=== PATIENT | male | born 1945 | race Caucasian/White ===

== ENCOUNTER 2018-01-01 15:01 | Inpatient (IN) | payer MEDICARE, BC ==
[~2018-01-01] VITALS: Ht 170.2 cm; Wt 102.9 kg
[2018-01-01 15:09] VITALS: BP 168/78; PULSE 67; RESP 20; TEMP 98.3; O2SAT 95
--- NOTE | 2018-01-01 15:13 | PD ---
HPI Chief Complaint: syncope Time Seen by Provider: 15:13 Travel History International Travel<30 days: No Contact w/Intl Traveler<30days: No Traveled to known affect area: No History of Present Illness HPI 72-year-old male with history of aortic valve placement 6 years ago presents emergency department for evaluation following a syncopal episode. Patient states he has had 5 of these since he had his valve replaced but hasn't made aware that the valve is failing. He reports this morning while playing dianboom ball he felt like he was going to pass out but he did not. And this afternoon in the kitchen he syncopized, hitting his face on the ground. 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 Patient states in route he also began having a mild substernal chest pain. He states he typically does not get chest pain. He had no nausea. No focal deficits or weakness. He states he did feel lightheaded. He reports moderate pain on his head where he sustained a laceration and large hematoma. He has no other symptoms to report. [facility] Past Medical History Chest Pain: Yes Social History Alcohol Use: No Tobacco Use: No Substance Use: No Allergies-Medications (Allergen,Severity, Reaction): Coded Allergies: No Known Allergies (Verified Allergy, Unknown, 01/01/18) Reported Meds & Prescriptions Reported Meds & Active Scripts Active Reported Furosemide 20 Mg Tab 20 Mg PO DAILY Sertraline (Sertraline HCl) 100 Mg Tab 100 Mg PO DAILY Valsartan 320 Mg Tab 320 Mg PO DAILY Rosuvastatin (Rosuvastatin Calcium) 20 Mg Tab 20 Mg PO DAILY Centrum (Multiple Vitamins W/ Minerals) 1 Chew 1 Tab CHEW DAILY Aspirin 81 Mg Chew 81 Mg CHEW DAILY Review of Systems Except as stated in HPI: all other systems reviewed are Neg Physical Exam Narrative GENERAL: Well-nourished, very pleasant male patient, sitting in bed in no acute distress. SKIN: Focused skin assessment warm/dry. 3 cm superficial laceration below the right eyebrow. Bleeding is controlled. Patient has another small subcentimeter laceration on the right side of the nasal bridge. Hematomas are forming above each superior eyelid. HEAD: Normocephalic. EYES: Pupils equal and round. No scleral icterus. No injection or drainage. EOMI. ENT: Mucosa pink and moist. No erythema or exudates. No uvular edema. No uvular , palatal, or tonsillar deviation. Airway patent. Nasal turbinates appear normal without nasal blood, purulent drainage or septal hematoma. NECK: Trachea midline. No JVD. Cervical collar is in place. CARDIOVASCULAR: Regular rate and rhythm. No murmur appreciated. RESPIRATORY: No accessory muscle use. Clear to auscultation. Breath sounds equal bilaterally. GASTROINTESTINAL: Abdomen soft, non-tender, nondistended. Hepatic and splenic margins not palpable. MUSCULOSKELETAL: No obvious deformities. No clubbing. No cyanosis. No edema. NEUROLOGICAL: Awake and alert. No obvious cranial nerve deficits. Motor grossly within normal limits. Normal speech. PSYCHIATRIC: Appropriate mood and affect; insight and judgment normal. Data Data Last Documented VS Vital Signs Date Time Temp Pulse Resp B/P (MAP) Pulse Ox O2 Delivery O2 Flow Rate FiO2 01/01/18 15:09 98.3 67 20 168/78 (108) 95 Orders Orders Electrocardiogram (01/01/18 15:11) Basic Metabolic Panel (Bmp) (01/01/18 15:11) Complete Blood Count With Diff (01/01/18 15:11) Magnesium (Mg) (01/01/18 15:11) Ckmb (Isoenzyme) Profile (01/01/18 15:11) Troponin I (01/01/18 15:11) Act Partial Throm Time (Ptt) (01/01/18 15:11) Prothrombin Time / Inr (Pt) (01/01/18 15:11) Urinalysis - C+S If Indicated (01/01/18 15:11) Chest, Single Ap (01/01/18 15:11) Ct Brain W/O Iv Contrast(Rout) (01/01/18 15:11) Ct Cerv Spine W/O Contrast (01/01/18 15:11) Ecg Monitoring (01/01/18 15:11) Iv Access Insert/Monitor (01/01/18 15:11) Oximetry (01/01/18 15:11) Ct Facial Bones W/O Iv Cont (01/01/18 ) CKMB (01/01/18 15:35) CKMB% (01/01/18 15:35) Morphine Inj (Morphine Inj) (01/01/18 16:45) Ondansetron Inj (Zofran Inj) (01/01/18 16:45) Admit Order (Ed Use Only) (01/01/18 17:25) Labs Laboratory Tests Test 01/01/18 15:35 01/01/18 17:15 White Blood Count 6.1 TH/MM3 Red Blood Count 5.02 MIL/MM3 Hemoglobin 14.4 GM/DL Hematocrit 42.1 % Mean Corpuscular Volume 83.9 FL Mean Corpuscular Hemoglobin 28.8 PG Mean Corpuscular Hemoglobin Concent 34.3 % Red Cell Distribution Width 14.3 % Platelet Count 148 TH/MM3 Mean Platelet Volume 9.0 FL Neutrophils (%) (Auto) 62.4 % Lymphocytes (%) (Auto) 27.7 % Monocytes (%) (Auto) 6.4 % Eosinophils (%) (Auto) 2.2 % Basophils (%) (Auto) 1.3 % Neutrophils # (Auto) 3.8 TH/MM3 Lymphocytes # (Auto) 1.7 TH/MM3 Monocytes # (Auto) 0.4 TH/MM3 Eosinophils # (Auto) 0.1 TH/MM3 Basophils # (Auto) 0.1 TH/MM3 CBC Comment DIFF FINAL Differential Comment Prothrombin Time 9.9 SEC Prothromb Time International Ratio 1.0 RATIO Activated Partial Thromboplast Time 20.4 SEC Blood Urea Nitrogen 13 MG/DL Creatinine 0.80 MG/DL Random Glucose 90 MG/DL Calcium Level 8.7 MG/DL Magnesium Level 2.1 MG/DL Sodium Level 142 MEQ/L Potassium Level 3.9 MEQ/L Chloride Level 111 MEQ/L Carbon Dioxide Level 24.1 MEQ/L Anion Gap 7 MEQ/L Estimat Glomerular Filtration Rate 94 ML/MIN Total Creatine Kinase 108 U/L Creatine Kinase MB 1.3 NG/ML Troponin I 0.05 NG/ML Urine Color LIGHT-YELLOW Urine Turbidity CLEAR Urine pH 5.5 Urine Specific Buhl 1.003 Urine Protein NEG mg/dL Urine Glucose (UA) NEG mg/dL Urine Ketones NEG mg/dL Urine Occult Blood NEG Urine Nitrite NEG Urine Bilirubin NEG Urine Urobilinogen LESS THAN 2.0 MG/DL Urine Leukocyte Esterase NEG Urine RBC LESS THAN 1 /hpf Microscopic Urinalysis Comment CULT NOT INDICATED MDM Medical Decision Making Medical Screen Exam Complete: Yes Emergency Medical Condition: Yes Medical Record Reviewed: Yes Differential Diagnosis Syncope versus ACS versus electrolyte abnormality versus seizure Narrative Course 72-year-old male presents to emergency department for evaluation following a syncopal episode. Patient had a near-syncope episode today and 2 additional syncopal episodes. Currently he is awake and alert 3. He has obvious trauma tohis face. He does not want any pain medication at this time. Laboratory Tests Test 01/01/18 15:35 01/01/18 17:15 White Blood Count 6.1 TH/MM3 Red Blood Count 5.02 MIL/MM3 Hemoglobin 14.4 GM/DL Hematocrit 42.1 % Mean Corpuscular Volume 83.9 FL Mean Corpuscular Hemoglobin 28.8 PG Mean Corpuscular Hemoglobin Concent 34.3 % Red Cell Distribution Width 14.3 % Platelet Count 148 TH/MM3 Mean Platelet Volume 9.0 FL Neutrophils (%) (Auto) 62.4 % Lymphocytes (%) (Auto) 27.7 % Monocytes (%) (Auto) 6.4 % Eosinophils (%) (Auto) 2.2 % Basophils (%) (Auto) 1.3 % Neutrophils # (Auto) 3.8 TH/MM3 Lymphocytes # (Auto) 1.7 TH/MM3 Monocytes # (Auto) 0.4 TH/MM3 Eosinophils # (Auto) 0.1 TH/MM3 Basophils # (Auto) 0.1 TH/MM3 CBC Comment DIFF FINAL Differential Comment Prothrombin Time 9.9 SEC Prothromb Time International Ratio 1.0 RATIO Activated Partial Thromboplast Time 20.4 SEC Blood Urea Nitrogen 13 MG/DL Creatinine 0.80 MG/DL Random Glucose 90 MG/DL Calcium Level 8.7 MG/DL Magnesium Level 2.1 MG/DL Sodium Level 142 MEQ/L Potassium Level 3.9 MEQ/L Chloride Level 111 MEQ/L Carbon Dioxide Level 24.1 MEQ/L Anion Gap 7 MEQ/L Estimat Glomerular Filtration Rate 94 ML/MIN Creatine Kinase MB 1.3 NG/ML Urine Color LIGHT-YELLOW Urine Turbidity CLEAR Urine pH 5.5 Urine Specific Buhl 1.003 Urine Protein NEG mg/dL Urine Glucose (UA) NEG mg/dL Urine Ketones NEG mg/dL Urine Occult Blood NEG Urine Nitrite NEG Urine Bilirubin NEG Urine Urobilinogen LESS THAN 2.0 MG/DL Urine Leukocyte Esterase NEG Urine RBC LESS THAN 1 /hpf Microscopic Urinalysis Comment CULT NOT INDICATED Last Impressions Head CT 01/01/18 1511 Signed Impressions: Service Date/Time: December 15:44 - CONCLUSION: 1. No acute skull fracture identified. No acute cranial abnormality identified. 2. Soft tissue swelling within the left scalp as above. Clifford Britton MD Chest X-Ray 01/01/181510 Signed Impressions: Service Date/Time: December 15:36 - CONCLUSION: 1. Cardiomegaly. No acute abnormality. Clifford Britton MD Cervical Spine CT 01/01/18 1511 Signed Impressions: Service Date/Time: December 15:44 - CONCLUSION: 1. Degenerative spondylosis throughout the cervical spine. No acute fracture identified. Individual levels are discussed in detail above. Clifford Britton MD Maxillofacial CT 01/01/18 0000 Signed Impressions: Service Date/Time: December 15:44 - CONCLUSION: 1. No acute facial fracture identified. 2. Large area of soft tissue swelling with small hematoma in the scalp along the left frontal region. Clifford Britton MD Carotid Artery Ultrasound 01/01/18 Signed Impressions: Service Date/Time: December 18:06 - CONCLUSION: Within normal limits. No significant plaque or narrowing. Kendall Carolina MD EKG is reviewed by my attending physician. Labs and studies are also reviewed. I discussed these with my attending. We feel it is best for the patient. Admitted observation for further evaluation. Plan is discussed with the patient and his who is at bedside. They agree with this plan of care. Procedures Procedure Narrative LACERATION LOCATION: Right eyebrow LENGTH: 3 cm NUMBER OF STITCHES/KIM: Steri-Strips REPAIR: The area of the laceration was prepped with Betadine and sterilely draped. The wound is closed using Steri-Strips. This is a single layer repair. Patient tolerated this well. Diagnosis Primary Impression: Syncope Qualified Codes: R55 - Syncope and collapse Additional Impressions: Head injury Qualified Codes: S09.90XA - Unspecified injury of head, initial encounter Facial contusion Qualified Codes: S00.83XA - Contusion of other part of head, initial encounter Admitting Information Admitting Physician Requests: Observation Condition: Stable Afia Joseph Jan 01, 2018 15:13
[2018-01-01] MEDS ORDERED: CENTCHW4 CHEW (15:29)
[2018-01-01] MEDS ORDERED: FURO20TA PO (15:29)
[2018-01-01] MEDS ORDERED: ASPI-516 CHEW (15:29)
[2018-01-01] MEDS ORDERED: VALS1TAB70 PO (15:29)
[2018-01-01] MEDS ORDERED: ROSU1TAB8 PO (15:29)
[2018-01-01] MEDS ORDERED: SERT-129 PO (15:29)
--- NOTE | 2018-01-01 15:53 | RADRPT ---
EXAM DATE/TIME: 01/01/2018 15:44 [facility] COMPARISON: No previous studies available for comparison. INDICATIONS : Syncopal episode,bilateraleye swelling and bruising RADIATION DOSE: 47.05 CTDIvol (mGy) MEDICAL HISTORY : Cardiovascular disease. Aneurysm, abdominal. SURGICAL HISTORY : Valve replacment ENCOUNTER: Initial ACUITY: 1 day PAIN SCALE: 3/10 LOCATION: cranial TECHNIQUE: Multiple contiguous axial images were obtained of the head. Using automated exposure control and adj ustment of the mA and/or kV according to patient size, radiation dose was kept as low as reasonably a chievable to obtain optimal diagnostic quality images. DICOM format image data is available electro nically for review and comparison. FINDINGS: CEREBRUM: The ventricles are normal for age. No evidence of midline shift, mass lesion, hemorrhage or acute in farction. No extra-axial fluid collections are seen. POSTERIOR FOSSA: The cerebellum and brainstem are intact. The 4th ventricle is midline. The cerebellopontine angle i s unremarkable. EXTRACRANIAL: The visualized portion of the orbits is intact. There is soft tissue swelling and a small hematoma wi thin the scalp above the left orbit. SKULL: The calvaria is intact. No evidence of skull fracture. CONCLUSION: 1. No acute skull fracture identified. No acute cranial abnormality identified. 2. Soft tissue swelling within the left scalp as above. Clifford Britton MD on January 01, 2018 at 15:50 Board Certified Radiologist. This report was verified electronically.
[2018-01-01 15:56] LABS: AUTOMATED NEUTROPHIL # 3.8 TH/MM3 (1.8-7.7); BASOPHIL # 0.1 TH/MM3 (0-0.2); BASOPHIL % 1.3 % (0.0-2.0); EOSINOPHIL # 0.1 TH/MM3 (0-0.4); EOSINOPHIL % 2.2 % (0.0-4.0); HEMATOCRIT 42.1 % (39.0-51.0); HEMOGLOBIN 14.4 GM/DL (13.0-17.0); LYMPH % 27.7 % (9.0-44.0); LYMPHOCYTE # 1.7 TH/MM3 (1.0-4.8); MEAN CELL VOLUME 83.9 FL (80.0-100.0); MEAN CORPUSCULAR HEMOGLOBIN 28.8 PG (27.0-34.0); MEAN CORPUSCULAR HGB CONC 34.3 % (32.0-36.0); MONO % 6.4 % (0.0-8.0); MONOCYTE # 0.4 TH/MM3 (0-0.9); NEUT % 62.4 % (16.0-70.0); PLATELET COUNT 148 TH/MM3 (150-450); RED BLOOD COUNT 5.02 MIL/MM3 (4.50-5.90); RED CELL DISTRIBUTION WIDTH 14.3 % (11.6-17.2); WHITE BLOOD COUNT 6.1 TH/MM3 (4.0-11.0)
[2018-01-01 16:10] LABS: PROTHROMBIN TIME - PATIENT 9.9 SEC (9.8-11.6)
[2018-01-01 16:11] LABS: BICARBONATE 24.1 MEQ/L (21.0-32.0); BLOOD UREA NITROGEN 13 MG/DL (7-18); CALCIUM 8.7 MG/DL (8.5-10.1); CHLORIDE 111 MEQ/L (98-107); GLOMERULAR FILTRATION RATE 94 ML/MIN (>89); GLUCOSE,RANDOM 90 MG/DL (74-106); MAGNESIUM 2.1 MG/DL (1.5-2.5); SODIUM (NA) 142 MEQ/L (136-145)
[2018-01-01 16:13] LABS: TROPONIN I 0.05 NG/ML (0.02-0.05)
--- NOTE | 2018-01-01 16:26 | RADRPT ---
EXAM DATE/TIME: 01/01/2018 15:44 [facility] COMPARISON: No previous studies available for comparison. INDICATIONS : Syncopal episode with bilateral eye swelling and bruising. RADIATION DOSE: 22.88 CTDIvol (mGy) MEDICAL HISTORY : Cardiovascular disease. Aneurysm, abdominal. SURGICAL HISTORY : Valve replacment ENCOUNTER: Initial ACUITY: 1 day PAIN SCALE: 0/10 LOCATION: neck TECHNIQUE: Volumetric scanning of the cervical spine was performed. Multiplanar reconstructions in the sagittal, coronal and oblique axial planes were performed. Using automated exposure control and adjustment o f the mA and/or kV according to patient size, radiation dose was kept as low as reasonably achievable to obtain optimal diagnostic quality images. DICOM format image data is available electronically f or review and comparison. FINDINGS: Thin section axial imaging of the cervical spine was performed. Sagittal and coronal imaging demonstrate mild straightening of the normal cervical curve. There are s everely degenerated disc at C4/5, C5/6 and C6/7. No acute fracture is identified.. C1/2: There are moderate degenerative changes in the atlantodens joint. C2/3: There is degeneration of the disc with minimal disc bulge and osteophytic ridging. The thecal space a nd foramina are adequate. There is moderate facet arthritis on the left. There is mild facet arthriti s on the right. C3/4: There is a degenerated disc. There is minimal disc bulge. There is moderate facet arthritis on the le ft. The thecal space and foramina are adequate. C4/5: There is a degenerated disc with broad based disc bulge and diffuse osteophytic ridging. There is adv anced facet arthritis on the left. There is mild facet arthritis on the right. There is moderate bony foraminal narrowing on the left. The residual thecal space is adequate. C5/6: There is a degenerated disc with a small broad-based disc bulge and diffuse osteophytic ridging. Ther e is moderate facet arthritis bilaterally. The residual thecal space is adequate. There is moderate b gricelda foraminal narrowing on the right. There is severe bony foraminal narrowing on the left. C6/7: There is a degenerated disc. There is minimal disc bulge. There is diffuse osteophytic ridging and mo derate facet arthritis bilaterally. The thecal space and foramina appear mildly narrowed but adequate . C7/T1: The thecal space is adequate. The neural foramina are adequate. There is moderate facet arthritis ponce aterally. CONCLUSION: 1. Degenerative spondylosis throughout the cervical spine. No acute fracture identified. Individual l evels are discussed in detail above. Clifford Britton MD on January 01, 2018 at 16:20 Board Certified Radiologist. This report was verified electronically.
--- NOTE | 2018-01-01 16:28 | RADRPT ---
EXAM DATE/TIME: 01/01/2018 15:44 [facility] COMPARISON: No previous studies available for comparison. INDICATIONS : Syncopal episode bilateral eye swelling and bruising RADIATION DOSE: 64.94 CTDIvol (mGy) MEDICAL HISTORY : Cardiovascular disease. Aneurysm, abdominal. SURGICAL HISTORY : Valve replacement ENCOUNTER: Initial ACUITY: 1 day PAIN SCORE: 0/10 LOCATION: facial TECHNIQUE: Volumetric scanning of the facial bones was performed. Using automated exposure control and adjustme nt of the mA and/or kV according to patient size, radiation dose was kept as low as reasonably achiev able to obtain optimal diagnostic quality images. DICOM format image data is available electronicall y for review and comparison. FINDINGS: ORBITS: The orbital and infraorbital osseous structures are intact. The retroconal structures have a normal configuration. No radiopaque foreign bodies are seen. NASAL BONE: The nasal bone and maxillary spine are intact ZYGOMATIC ARCHES: Symmetric without evidence of fracture. SINUSES: The maxillary, ethmoid and frontal sinuses are intact. No air-fluid levels seen. NASAL CAVITY: The nasal septum is intact and midline. The lacrimal ducts are intact. SOFT TISSUES: There is diffuse soft tissue swelling with a small hematoma beneath the scalp along the left frontal region. INTRACRANIAL: No intracranial air seen. CRIBIFORM PLATE: Grossly intact. CONCLUSION: 1. No acute facial fracture identified. 2. Large area of soft tissue swelling with small hematoma in the scalp along the left frontal region. Clifford Britton MD on January 01, 2018 at 16:24 Board Certified Radiologist. This report was verified electronically.
--- NOTE | 2018-01-01 16:29 | RADRPT ---
EXAM DATE/TIME: 01/01/2018 15:36 [facility] COMPARISON: No previous studies available for comparison. INDICATIONS : Syncopal episode- Chest pain. MEDICAL HISTORY : Aneurysm, abdominal. SURGICAL HISTORY : Valve replacement. ENCOUNTER: Initial ACUITY: 1 day PAIN SCORE: 5/10 LOCATION: Bilateral chest FINDINGS: Single view chest demonstrates cardiomegaly. Patient is post median sternotomy. The lungs are clear. No pneumothorax is seen. The visualized bony structures are grossly intact. CONCLUSION: 1. Cardiomegaly. No acute abnormality. Clifford Britton MD on January 01, 2018 at 16:26 Board Certified Radiologist. This report was verified electronically.
[2018-01-01] MEDS ORDERED: ONDANSETRON HCL 4 MG/2 ML VIAL IV PUSH ONE (16:45)
[2018-01-01] MEDS ORDERED: MORPHINE SULFATE 2 MG/ML INJ IV PUSH ONE (16:45)
[2018-01-01 17:34] VITALS: BP 153/77; PULSE 60; RESP 20; O2SAT 94
[2018-01-01] MEDS ORDERED: NALOXONE HCL 0.4 MG/ML AMP IV PUSH PRN (17:45)
[2018-01-01] MEDS ORDERED: SODIUM CHLORIDE 0.9% FLUSH 10 ML FLUSH IV FLUSH PRN (17:45)
[2018-01-01 18:12] LABS: BILIRUBIN, URINE NEG (NEG); BLOOD, URINE NEG (NEG); GLUCOSE,URINE NEG (NEG); KETONE, URINE NEG (NEG); NITRITE,URINE NEG (NEG); PH, URINE 5.5 (5.0-8.5); URINE COLOR LIGHT-YELLOW (YELLW/STRAW); URINE LEUKOCYTE ESTERASE NEG (NEG)
--- NOTE | 2018-01-01 18:35 | RADRPT ---
EXAM DATE/TIME: 01/01/2018 18:06 [facility] COMPARISON: No previous studies available for comparison. INDICATIONS : Syncope. MEDICAL HISTORY : Aneurysm, abdominal. Glasses. SURGICAL HISTORY : Valve replacement. Bilateral humerus replacement. Femur and tibia/fibula reconstruction. ENCOUNTER: Initial ACUITY: 2 days PAIN SCORE: 10 LOCATION: Bilateral neck PEAK SYSTOLIC VELOCITIES (cm/sec): ICA/CCA RATIO: Right: 1.3 Left: 1.0 ICA: Right: 99.5 Left: 88.2 CCA: Right: 78.5 Left: 86.6 ECA: Right: 105.9 Left: 89.8 VERTEBRAL: Right: 63.0 antegrade Left: 49.0 antegrade Elevated flow velocities and ICA/CCA ratios have been found to correlate with increased degrees of vessel stenosis, calculated as percentage of diameter relative to a normal segment of distal ICA/CCA FINDINGS: RIGHT CAROTID: No significant stenosis is visualized. The waveforms are within normal limits. LEFT CAROTID: No significant stenosis is visualized. The waveforms are within normal limits. VERTEBRAL ARTERIES: Antegrade flow is seen in both vertebral arteries. MISCELLANEOUS: None. CONCLUSION: Within normal limits. No significant plaque or narrowing. Kendall Carolina MD on January 01, 2018 at 18:33 Board Certified Radiologist. This report was verified electronically.
[2018-01-01 20:20] VITALS: BP 144/63; PULSE 60; RESP 18; TEMP 98; O2SAT 95
--- NOTE | 2018-01-01 20:44 | HHI.HP ---
[facility] Admission Diagnosis syncope; chest pain; minor head injury; hx of AVR 2008 Diagnoses: Travel History International Travel<30 Days: No Contact w/Intl Traveler <30 Da: No Traveled to Known Affected Are: No History of Present Illness passed out while sitting with around 1130a.m in kitchen, flat on face, had tunnel vision , feeling air coming ears out had lots of blood on floor 911 called had syncope again while EMS was there at home hx of severe aortic stenosis- was replaced in 2011- but was told need replacement now also c/o chest pain to back reports hx of 4.5cm ascending thoracic aneurysm awaiting on surgical intevention BP stat done- 157/74 at left arm, 149/79 at right arm stool has been more black lately only on 81mg asa at home now - 2 a day chest pain only happened at hospital , not at home worsening shortness of breath in past few months with increasing leg swelling Review of Systems Except as stated in HPI: all other systems reviewed are Neg Past Family Social History Past Medical History htn hyperlipidemia aortic stenosis ascending aortic aneursym 4.5cm afib kris on cpap cogential multiple exostosis Past Surgical History aortic valve replacement 2012 pig valve coronary angiogram 2012 orthopedics surgeries- Allergies: Coded Allergies: No Known Allergies (Verified Allergy, Unknown, 01/01/18) Family History parents- heart problems Social History used to smoke, quit 2012 social drinker no drugs still driving Physical Exam Vital Signs Vital Signs Date Time Temp Pulse Resp B/P (MAP) Pulse Ox O2 Delivery O2 Flow Rate FiO2 01/01/18 20:20 98.0 60 18 144/63 (90) 95 01/01/18 18:21 01/01/18 18:10 20 01/01/18 17:34 60 20 153/77 (102) 94 Room Air 01/01/18 15:09 98.3 67 20 168/78 (108) 95 Physical Exam GENERAL: This is a well-nourished, well-developed patient, in no apparent distress. SKIN: Bilateral periorbital ecchymoses. HEAD: Atraumatic. Normocephalic. No temporal or scalp tenderness. EYES: No scleral icterus. No injection or drainage. ENT: Nose without bleeding, purulent drainage or septal hematoma. Airway patent. NECK: Trachea midline. No JVD or lymphadenopathy. Supple, nontender, no meningeal signs. CARDIOVASCULAR: Regular rate and rhythm without murmurs, gallops, or rubs. RESPIRATORY: Clear to auscultation. Breath sounds equal bilaterally. No wheezes , rales, or rhonchi. GASTROINTESTINAL: Abdomen soft, non-tender, nondistended. No guarding. MUSCULOSKELETAL: Extremities without clubbing, cyanosis, or edema. No joint tenderness, effusion, or edema noted. No calf tenderness. NEUROLOGICAL: Awake and alert. Motor and sensory grossly within normal limits. Normal speech. Laboratory Laboratory Tests Test 01/01/18 15:35 01/01/18 17:15 01/01/18 20:30 White Blood Count 6.1 Red Blood Count 5.02 Hemoglobin 14.4 Hematocrit 42.1 Mean Corpuscular Volume 83.9 Mean Corpuscular Hemoglobin 28.8 Mean Corpuscular Hemoglobin Concent 34.3 Red Cell Distribution Width 14.3 Platelet Count 148 Mean Platelet Volume 9.0 Neutrophils (%) (Auto) 62.4 Lymphocytes (%) (Auto) 27.7 Monocytes (%) (Auto) 6.4 Eosinophils (%) (Auto) 2.2 Basophils (%) (Auto) 1.3 Neutrophils # (Auto) 3.8 Lymphocytes # (Auto) 1.7 Monocytes # (Auto) 0.4 Eosinophils # (Auto) 0.1 Basophils # (Auto) 0.1 CBC Comment DIFF FINAL Differential Comment Prothrombin Time 9.9 Prothromb Time International Ratio 1.0 Activated Partial Thromboplast Time 20.4 Blood Urea Nitrogen 13 Creatinine 0.80 Random Glucose 90 Calcium Level 8.7 Magnesium Level 2.1 Sodium Level 142 Potassium Level 3.9 Chloride Level 111 Carbon Dioxide Level 24.1 Anion Gap 7 Estimat Glomerular Filtration Rate 94 Total Creatine Kinase 108 Creatine Kinase MB 1.3 Troponin I 0.05 Urine Color LIGHT-YELLOW Urine Turbidity CLEAR Urine pH 5.5 Urine Specific [place] 1.003 Urine Protein NEG Urine Glucose (UA) NEG Urine Ketones NEG Urine Occult Blood NEG Urine Nitrite NEG Urine Bilirubin NEG Urine Urobilinogen LESS THAN 2.0 Urine Leukocyte Esterase NEG Urine RBC LESS THAN 1 Microscopic Urinalysis Comment CULT NOT INDICATED Result Diagram: 01/01/18 1535 01/01/18 1535 Imaging Last [address] 01/01/18 151 Signed Impressions: Service Date/Time: December 15:44 - CONCLUSION: 1. No acute skull fracture identified. No acute cranial abnormality identified. 2. Soft tissue swelling within the left scalp as above. Clifford Britton MD Chest X-Ray 01/01/181510 Signed Impressions: Service Date/Time: December 15:36 - CONCLUSION: 1. Cardiomegaly. No acute abnormality. Clifford Britton MD Cervical Spine CT 01/01/181510 Signed Impressions: Service Date/Time: December 15:44 - CONCLUSION: 1. Degenerative spondylosis throughout the cervical spine. No acute fracture identified. Individual levels are discussed in detail above. Clifford Britton MD Maxillofacial CT 01/01/18 0000 Signed Impressions: Service Date/Time: December 15:44 - CONCLUSION: 1. No acute facial fracture identified. 2. Large area of soft tissue swelling with small hematoma in the scalp along the left frontal region. Clifford Britton MD Captinyi VTE Risk Assessment Caprini VTE Risk Assessment: Mod/High Risk (score >= 2) Caprini Risk Assessment Model Point Value = 1 Point Value = 2 Point Value = 3 Point Value = 5 Age 41-60 Minor surgery BMI > 25 kg/m2 Swollen legs Varicose veins or History of unexplained or recurrent spontaneous Oral contraceptives or hormone replacement Sepsis (< 1 month) Serious lung disease, including pneumonia (< 1 month) Abnormal pulmonary function Acute myocardial infarction Congestive heart failure (< 1 month) History of inflammatory bowel disease Medical patient at bed rest Age 61-74 Arthroscopic surgery Major open surgery (> 45 min) Laparoscopic surgery (> 45 min) Malignancy Confined to bed (> 72 hours) Immobilizing plaster cast Central venous access Age >= 75 History of VTE Family history of VTE Factor V Leiden Prothrombin [id number] Lupus anticoagulant Anticardiolipin antibodies Elevated serum homocysteine Heparin-induced thrombocytopenia Other congenital or acquired thrombophilia Stroke (< 1 month) Elective arthroplasty Hip, pelvis, or leg fracture Acute spinal cord injury (< 1 month) Prophylaxis Regimen Total Risk Factor Score Risk Level Prophylaxis Regimen 0-1 Low Early ambulation 2 Moderate Order ONE of the following: *Sequential Compression Device (SCD) *Heparin 5000 units SQ BID 3-4 Higher Order ONE of the following medications: *Heparin 5000 units SQ TID *Enoxaparin/Lovenox 40 mg SQ daily (WT < 150 kg, CrCl > 30 mL/min) *Enoxaparin/Lovenox 30 mg SQ daily (WT < 150 kg, CrCl > 10-29 mL/min) *Enoxaparin/Lovenox 30 mg SQ BID (WT < 150 kg, CrCl > 30 mL/min) AND/OR *Sequential Compression Device (SCD) 5 or more Highest Order ONE of the following medications: *Heparin 5000 units SQ TID (Preferred with Epidurals) *Enoxaparin/Lovenox 40 mg SQ daily (WT < 150 kg, CrCl > 30 mL/min) *Enoxaparin/Lovenox 30 mg SQ daily (WT < 150 kg, CrCl > 10-29 mL/min) *Enoxaparin/Lovenox 30 mg SQ BID (WT < 150 kg, CrCl > 30 mL/min) AND *Sequential Compression Device (SCD) Assessment and Plan Assessment and Plan Impression: Severe aortic stenosis Frequent syncope secondary to above Exertional dyspnea with peripheral edema secondary to severe aortic stenosis Chest pain with radiation to the back. We'll need to rule out aortic dissection. History of ascending aortic aneurysm 4.5 cm per pt report htn hyperlipidemia aortic stenosis ascending aortic aneursym 4.5cm per pt report afib kris on cpap cogential multiple exostoses Plan: Echocardiogram in a.m. CTA of the aorta stat. Labetalol 200 mg by mouth stat. Blood pressure measured both arms. No significant difference. No pulse deficit on examination. Serial cardiac enzymes and EKGs. Cardiothoracic surgery consult. imaging studies : CTmaxilofacial, cxr, ct chest- reviewed personally Resume home meds. DVT prophylaxis with SCD for now. Discussed Condition With patient , at bedside, ER HUMAN SERVICE COORDINATOR, nurse Radha Velazquez MD Jan 01, 2018 20:44
[2018-01-01 20:50] VITALS: BP 149/79; PULSE 63
[2018-01-01 20:51] VITALS: BP 157/74; PULSE 63
[2018-01-01] MEDS: SODIUM CHLORIDE 0.9% FLUSH 10 ML FLUSH IV FLUSH SCH (21:00)
[2018-01-01] MEDS ORDERED: LABETALOL HCL 200 MG TAB PO ONE (21:00)
[2018-01-01 21:01] LABS: TROPONIN I 0.05 NG/ML (0.02-0.05)
[2018-01-01] MEDS ORDERED: IOHEXOL 350 MG/ML 10 ML VIAL (for RAD DIAG) IVCONTRAST ONE (23:01)
--- NOTE | 2018-01-01 23:12 | RADRPT ---
EXAM DATE/TIME: 01/01/2018 22:38 [place] COMPARISON: No previous studies available for comparison. INDICATIONS : Syncope, chest bone, evaluate for aortic dissection. IV CONTRAST: 100 cc Omnipaque 350 (iohexol) IV RADIATION DOSE: 9.78 CTDIvol (mGy) MEDICAL HISTORY : Cardiovascular disease. SURGICAL HISTORY : valve replacement ENCOUNTER: Initial ACUITY: 1 day PAIN SCALE: 5/10 LOCATION: chest TECHNIQUE: Volumetric scanning was performed using a multi-row detector CT scanner. The data was post processed with a variety of visualization algorithms including full volume maximum intensity projection, multi -planar sliding thin slab reformation, curved planar reformation, and surface rendering techniques. Using automated exposure control and adjustment of the mA and/or kV according to patient size, radiat ion dose was kept as low as reasonably achievable to obtain optimal diagnostic quality images. DICOM format image data is available electronically for review and comparison. FINDINGS: No dissection in the thoracic or abdominal aorta. No significant aneurysmal dilatation. Great vessel origins are patent. Celiac, superior mesenteric and renal arteries are patent mild atherosclerotic ch anges. Severe coronary artery calcifications present, especially in the proximal LAD. Previous median sternotomy and aortic valvular surgery. Small 3 mm nodule right upper lobe. Dependent atelectasis at both lung bases. Small amount of mucoid material proximal right mainstem bronchus. No acute findings within the abdomen and pelvis. Numerous bilateral renal cysts. CONCLUSION: 1. Negative for thoracic and abdominal aortic aneurysm or dissection. 2. 3 mm nodule right upper lobe. Mucoid material in the right mainstem bronchus. Severe coronary calc ifications. Richard Schrader MD on January 01, 2018 at 23:01 Board Certified Radiologist. This report was verified electronically.
[2018-01-01 23:28] VITALS: BP 175/81; PULSE 67; RESP 18; TEMP 98; O2SAT 94
[2018-01-02] MEDS ORDERED: NITROGLYCERIN 0.4 MG SL 25 TABS/BTL SL PRN (02:30)
[2018-01-02 02:31] VITALS: BP 124/58
[2018-01-02 03:00] LABS: BICARBONATE 26.9 MEQ/L (21.0-32.0); CALCIUM 8.1 MG/DL (8.5-10.1); CREATININE 0.64 MG/DL (0.60-1.30)
[2018-01-02 03:04] LABS: TROPONIN I 0.06 NG/ML (0.02-0.05)
[2018-01-02 03:24] VITALS: BP 100/53; PULSE 68; RESP 16; TEMP 98; O2SAT 91
[2018-01-02] MEDS ORDERED: SODIUM CHLOR 0.9% 250 ML INJ 250 ML IV ONE (04:00)
[2018-01-02] MEDS ORDERED: MORPHINE SULFATE 2 MG/ML INJ IV PUSH ONE (04:00)
[2018-01-02] MEDS ORDERED: MORPHINE SULFATE 2 MG/ML INJ ONE (04:56)
[2018-01-02 07:48] LABS: AUTOMATED NEUTROPHIL # 4.6 TH/MM3 (1.8-7.7); BASOPHIL # 0.1 TH/MM3 (0-0.2); BASOPHIL % 0.9 % (0.0-2.0); EOSINOPHIL # 0.1 TH/MM3 (0-0.4); HEMATOCRIT 39.9 % (39.0-51.0); HEMOGLOBIN 13.7 GM/DL (13.0-17.0); LYMPH % 22.6 % (9.0-44.0); LYMPHOCYTE # 1.5 TH/MM3 (1.0-4.8); MEAN CELL VOLUME 83.6 FL (80.0-100.0); MEAN CORPUSCULAR HEMOGLOBIN 28.7 PG (27.0-34.0); MEAN CORPUSCULAR HGB CONC 34.3 % (32.0-36.0); MEAN PLATELET VOLUME 8.8 FL (7.0-11.0); MONOCYTE # 0.5 TH/MM3 (0-0.9); NEUT % 67.5 % (16.0-70.0); PLATELET COUNT 139 TH/MM3 (150-450); RED BLOOD COUNT 4.78 MIL/MM3 (4.50-5.90); WHITE BLOOD COUNT 6.8 TH/MM3 (4.0-11.0)
[2018-01-02] MEDS: TORSEMIDE 20 MG TAB PO SCH (08:34)
[2018-01-02] MEDS: VALSARTAN 160 MG TAB PO SCH (08:34)
[2018-01-02] MEDS: ATORVASTATIN 40 MG TAB PO SCH (08:34)
[2018-01-02] MEDS: ASPIRIN 81 MG CHEW TAB CHEW SCH (08:35)
[2018-01-02] MEDS: SERTRALINE HCL 100 MG TAB PO SCH (08:35)
[2018-01-02] MEDS: SODIUM CHLORIDE 0.9% FLUSH 10 ML FLUSH IV FLUSH SCH ×2 (09:00→21:00)
[2018-01-02] MEDS ORDERED: NON-FORMULARY DRUG (Rosuvastatin 20 MG) PO SCH (09:00)
--- NOTE | 2018-01-02 09:19 | HHI.PR ---
Subjective Remarks Follow up for syncope with hx of aortic stenosis. The patient states he was just standing in the kitchen yesterday when he all of a sudden became lightheaded and "hit the floor". He denies any neck pain. at bedside. There was no reported convulsions or tongue biting however patient did have urinary incontinence. He has no history of seizures. 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 He has an appointment for cardiothoracic evaluation on February 25. The patient denies any current chest pain but did have some pains overnight. He states on his cardiac catheterization 6 years ago, his coronary arteries were clean. He denies any recent stress test. He has no other medical complaints to report at this time. Objective Vitals Vital Signs Date Time Temp Pulse Resp B/P (MAP) Pulse Ox O2 Delivery O2 Flow Rate FiO2 01/02/18 03:24 98.0 68 16 100/53 (69) 91 01/02/18 02:31 124/58 (80) 01/01/18 23:28 98.0 67 18 175/81 (112) 94 01/01/18 20:51 63 157/74 (101) 01/01/18 20:50 63 149/79 (102) 01/01/18 20:20 98.0 60 18 144/63 (90) 95 01/01/18 18:21 01/01/18 18:10 20 01/01/18 17:34 60 20 153/77 (102) 94 Room Air 01/01/18 15:09 98.3 67 20 168/78 (108) 95 Result Diagram: 01/02/18 0730 01/02/18 0228 Imaging Last Impressions Head CT 01/01/181510 Signed Impressions: Service Date/Time: December 15:44 - CONCLUSION: 1. No acute skull fracture identified. No acute cranial abnormality identified. 2. Soft tissue swelling within the left scalp as above. Clifford Britton MD Chest X-Ray 01/01/181510 Signed Impressions: Service Date/Time: December 15:36 - CONCLUSION: 1. Cardiomegaly. No acute abnormality. Clifford Britton MD Cervical Spine CT 01/01/181510 Signed Impressions: Service Date/Time: December 15:44 - CONCLUSION: 1. Degenerative spondylosis throughout the cervical spine. No acute fracture identified. Individual levels are discussed in detail above. Clifford Britton MD Maxillofacial CT 01/01/18 Signed Impressions: Service Date/Time: December 15:44 - CONCLUSION: 1. No acute facial fracture identified. 2. Large area of soft tissue swelling with small hematoma in the scalp along the left frontal region. Clifford Britton MD Carotid Artery Ultrasound 01/01/18 Signed Impressions: Service Date/Time: December 18:06 - CONCLUSION: Within normal limits. No significant plaque or narrowing. Kendall Carolina MD Aorta CTA 01/01/18 Signed Impressions: Service Date/Time: December 22:38 - CONCLUSION: 1. Negative for thoracic and abdominal aortic aneurysm or dissection. 2. 3 mm nodule right upper lobe. Mucoid material in the right mainstem bronchus. Severe coronary calcifications. Richard Schrader MD Objective Remarks GENERAL: Well-nourished, well-developed pleasant elderly male patient in [facility]. SKIN: Warm and dry. No rash. HEENT: Normocephalic. Periorbital ecchymosis bilaterally, worse on the right. Nasal bridge with edema/ecchymosis. Pupils equal and round. Mucous membranes pink and moist. NECK: Supple. Trachea midline. Nontender to palpation. CARDIOVASCULAR: Regular rate and rhythm. S1, S2 noted. Systolic ejection murmur heard best at RUSB. RESPIRATORY: No accessory muscle use. Clear to auscultation. Breath sounds equal bilaterally. GASTROINTESTINAL: Abdomen soft, non-tender, nondistended. Normoactive bowel sounds x4. MUSCULOSKELETAL: No obvious deformities. Extremities without clubbing, cyanosis , or edema. NEUROLOGICAL: Awake and alert. No obvious cranial nerve deficits. Motor grossly within normal limits. Normal speech. PSYCHIATRIC: Appropriate mood and affect; insight and judgment normal. Medications and IVs Current Medications Medications (Trade) Dose Ordered Sig/Jeanmarie Route Start Time Stop Time Status Last Admin (NS Flush) 2 ml UNSCH PRN IV FLUSH 01/01/18 17:45 (NS Flush) 2 ml BID IV FLUSH 01/01/18 21:00 01/01/18 21:00 (Narcan Inj) 0.4 mg UNSCH PRN IV PUSH 01/01/18 17:45 (Aspirin Chew) 81 mg DAILY CHEW 01/02/18 09:00 01/02/18 08:35 (Zoloft) 100 mg DAILY PO 01/02/18 09:00 01/02/18 08:35 (Diovan) 320 mg DAILY PO 01/02/18 09:00 01/02/18 08:34 (Lipitor) 40 mg DAILY PO 01/02/18 09:00 01/02/18 08:34 (Demadex) 20 mg DAILY PO 01/02/18 09:00 01/02/18 08:34 A/P Assessment and Plan 72-year-old male with history of aortic valve replacement 2011 now with severe aortic stenosis, HTN, HLD, Afib, ROWAN on CPAP, presents with syncope Syncope, Severe Aortic Stenosis: strongly suspect syncope secondary to aortic stenosis. -Head CT images reviewed and no acute findings -Carotid U/S unremarkable -check echo -check orthostatics -monitor on telemetry -Cardiothoracic surgery consulted Trauma s/p Fall: patient with diffuse facial ecchymosis s/p fall after syncope as above -Head CT and Maxillofacial CT reviewed, no acute fractures; large area of soft tissue swelling with small hematoma in the scalp along the left frontal region -Cervical Spine CT with degenerative spondylosis but no acute fracture -Consult PT -ice pack prn ?Aortic Aneurysm: patient reports he was told he has an ascending aortic aneurysm measuring 4.5cm -Aorta CTA negative for thoracic and abdominal aortic aneurysm or dissection Chest Pain: suspect musculoskeletal secondary to fall. Hx of cardiac catheterization 6 years ago reportedly clean. Pain not relieved by nitro. CTA aorta negative for aneurysm/dissection. CXR unremarkable. -Troponins flat at 0.05, 0.05, 0.06 -EKG without acute ischemic changes -Chest pain currently resolved Hypertension/Hyperlipidemia: chronic -continue patient's home meds including aspirin, valsartan, lasix, statin -monitor BP, adjust antihypertensives as needed ROWAN on CPAP: chronic -patient may continue CPAP during hospitalization DVT Prophylaxis: teds/SCDs; avoid chemoprophylaxis with facial/head trauma Discharge Planning Awaiting echo and cardiothoracic surgery evaluation. Shalini Aponte PA-C Jan 02, 2018 9:19 am
[2018-01-02 11:46] VITALS: BP_SYST 118; BP_SYST 133; BP_SYST 139; BP_DIAS 56; BP_DIAS 60; BP_DIAS 64; PULSE 60; RESP 20; TEMP 98.6; O2SAT 96
--- NOTE | 2018-01-02 14:33 | EKG ---
Date Performed: 01/01/2018 Time Performed: 15:19:40 PTAGE: 72 years EKG: Sinus rhythm WITH FIRST DEGREE AV BLOCK RIGHT BUNDLE BRANCH BLOCK LEFT ANTERIOR FASCICULAR BLOCK ABNORMAL ECG NO PREVIOUS TRACING DOCTOR: Shanelle Valero Interpretating Date/Time 01/02/2018 14:28:02
--- NOTE | 2018-01-02 14:57 | EKG ---
Date Performed: 01/02/2018 Time Performed: 02:31:14 PTAGE: 72 years EKG: Sinus rhythm WITH FIRST DEGREE AV BLOCK WITH OCCASIONAL VENTRICULAR PREMATURE COMPLEXES RIGHT BUNDLE BRANCH BLOCK LEFT ANTERIOR FASCICULAR BLOCK Since previous tracing, no significant change noted ABNORMAL ECG PREVIOUS TRACING : 01/01/2018 22.56 DOCTOR: Shanelle Valero Interpretating Date/Time 01/02/2018 14:55:21
--- NOTE | 2018-01-02 14:57 | EKG ---
Date Performed: 01/01/2018 Time Performed: 22:56:19 PTAGE: 72 years EKG: Sinus rhythm WITH FIRST DEGREE AV BLOCK RIGHT BUNDLE BRANCH BLOCK LEFT ANTERIOR FASCICULAR BLOCK Since previous t racing, no significant change noted ABNORMAL ECG PREVIOUS TRACING : 01/01/2018 15.19 DOCTOR: Shanelle Valero Interpretating Date/Time 01/02/2018 14:55:12
--- NOTE | 2018-01-02 15:37 | ECHRPT ---
Indication: CONCLUSIONS The left ventricular systolic function is low normal with an estimated ejection fraction in the rang e of 50- 55%. Mild concentric left ventricular hypertrophy. Aortic root 4.4 cm Trace mitral valve regurgitation. Probably bioprosthetic aortic valve with severe aortic stenosis (ALEN 0/83, mean grad 45) There is mild tricuspid valve regurgitation. BP: / HR: Rhythm: MEASUREMENTS (Male / Female) Normal Values Technical Quality:Fair 2D ECHO LV Diastolic Diameter PLAX 5.8 cm 4.2 - 5.9 / 3.9 - 5.3 cm LV Systolic Diameter PLAX 4.3 cm IVS Diastolic Thickness 1.6 cm 0.6 - 1.0 / 0.6 - 0.9 cm LVPW Diastolic Thickness 1.3 cm 0.6 - 1.0 / 0.6 - 0.9 cm LV Relative Wall Thickness 0.5 RV Internal Dim ED PLAX 3.2 cm LVOT Diameter 2.8 cm M-MODE Aortic Root Diameter MM 4.4 cm LA Systolic Diameter MM 5.0 cm LA Ao Ratio MM 1.1 DOPPLER AV Peak Velocity 451.5 cm/s AV Peak Gradient 81.5 mmHg AV Mean Gradient 45.0 mmHg AV Velocity Time Integral 111.5 cm LVOT Peak Velocity 64.7 cm/s LVOT Peak Gradient 1.7 mmHg LVOT Velocity Time Integral 15.1 cm AV Area Cont Eq vti 0.8 cm AV Area Cont Eq pk 0.9 cm Mitral E Point Velocity 62.7 cm/s Mitral A Point Velocity 101.0 cm/s Mitral E to A Ratio 0.6 LV E' Lateral Velocity 14.6 cm/s Mitral E to LV E' Lateral Ratio 4.3 LV E' Septal Velocity 11.8 cm/s Mitral E to LV E' Septal Ratio 5.3 TR Peak Velocity 269.0 cm/s TR Peak Gradient 28.9 mmHg Right Atrial Pressure 10.0 mmHg Pulmonary Artery Systolic Pressu 38.9 mmHg Right Ventricular Systolic Press 38.9 mmHg FINDINGS LEFT VENTRICLE Normal left ventricular size. Mild concentric left ventricular hypertrophy. The left ventricular systolic function is low normal with an estimated ejection fraction in the rang e of 50- 55%. No regional wall motion abnormalities are present. RIGHT VENTRICLE Normal right ventricular size and systolic function. LEFT ATRIUM The left atrial size is mildly dilated. RIGHT ATRIUM The right atrial size is normal. ATRIAL SEPTUM Normal atrial septal thickness. AORTA Aortic root 4.4 MITRAL VALVE Structurally normal mitral valve. Trace mitral valve regurgitation. AORTIC VALVE Probably bioprosthetic aortic valve with severe aortic stenosis (ALEN 0/, mean grad 45) No aortic valve regurgitation. TRICUSPID VALVE Structurally normal tricuspid valve. There is mild tricuspid valve regurgitation. The estimated pulmonary arterial pressure is 38.9 mmHg. PULMONARY VALVE No pulmonary valve regurgitation or stenosis. VESSELS The inferior vena cava is normal in size. PERICARDIUM No pericardial effusion. Humble Rojas DO (Electronically Signed) Final Date:02 January 2018 15:36
--- NOTE | 2018-01-02 16:19 | PD.CONS ---
History of Present Illness Service CT Surgery Consult Requested By Dr. Velazquez Reason for Consult Recurrent severe aortic stenosis with syncopal episode Primary Care Physician Unknown Diagnoses: (1) Prosthetic aortic valve stenosis (2) Syncopal episodes (3) Diastolic CHF due to valvular disease (4) CAD (coronary artery disease) History of Present Illness 72y/o male s/p AVR in 2011 in [place], [place], presents with syncopal episode yesterday. He has known recurrent prosthetic valve stenosis with exertional dyspnea with multiple presyncopal episodes over the past few months. He fell yesterday resulting in facial trauma. He denies chest pain or palpitations. He denies PND/orthopnea. Review of Systems Constitutional: COMPLAINS OF: Fatigue, DENIES: Diaphoretic episodes, Fever, Weight gain, Weight loss, Chills, Dizziness, Change in appetite, Night Sweats Endocrine: DENIES: Heat/cold intolerance, Polydipsia, Polyuria, Polyphagia Eyes: COMPLAINS OF: Vision loss, DENIES: Blurred vision, Diplopia, Eye inflammation, Eye pain, Photosensitivity, Double Vision Ears, nose, mouth, throat: DENIES: Tinnitus, Hearing loss, Vertigo, Nasal discharge, Oral lesions, Throat pain, Hoarseness, Ear Pain, Running Nose, Epistaxis, Sinus Pain, Toothache, Odynophagia Respiratory: DENIES: Apneas, Cough, Snoring, Wheezing, Hemoptysis, Sputum production, Shortness of breath Cardiovascular: COMPLAINS OF: Syncope, Dyspnea on Exertion, DENIES: Chest pain , Palpitations, PND, Lower Extremity Edema, Orthopnea, Claudication Gastrointestinal: DENIES: Abdominal pain, Black stools, Bloody stools, Constipation, Diarrhea, Nausea, Vomiting, Difficulty Swallowing, Anorexia Genitourinary: DENIES: Sexual dysfunction, Urinary frequency, Urinary incontinence, Urgency, Hematuria, Dysuria, Nocturia, Penile Discharge, Testicular Pain, Testicular Swelling Musculoskeletal: DENIES: Joint pain, Muscle aches, Stiffness, Joint Swelling, Back pain, Neck pain Integumentary: DENIES: Abnormal pigmentation, Nail changes, Pruritus, Rash Hematologic/lymphatic: DENIES: Bruising, Lymphadenopathy Immunologic/allergic: DENIES: Eczema, Urticaria Neurologic: DENIES: Abnormal gait, Headache, Localized weakness, Paresthesias, Seizures, Speech Problems, Tremor, Poor Balance Psychiatric: DENIES: Anxiety, Confusion, Mood changes, Depression, Hallucinations, Agitation, Suicidal Ideation, Homicidal Ideation, Delusions Past Family Social History Allergies: Coded Allergies: No Known Allergies (Verified Allergy, Unknown, 01/01/18) Past Medical History htn hyperlipidemia aortic stenosis ascending aortic aneursym 4.5cm afib kris on cpap cogential multiple exostosis Past Surgical History aortic valve replacement 2012 pig valve coronary angiogram 2012 orthopedics surgeries- Family History parents- heart problems Social History used to smoke, quit 2012 social drinker no drugs still driving Active Ordered Medications Current Medications Medications (Trade) Dose Ordered Sig/Jeanmarie Route Start Time Stop Time Status Last Admin (NS Flush) 2 ml UNSCH PRN IV FLUSH 01/01/18 17:45 (NS Flush) 2 ml BID IV FLUSH 01/01/18 21:00 01/01/18 21:00 (Narcan Inj) 0.4 mg UNSCH PRN IV PUSH 01/01/18 17:45 (Aspirin Chew) 81 mg DAILY CHEW 01/02/18 09:00 01/02/18 08:35 (Zoloft) 100 mg DAILY PO 01/02/18 09:00 01/02/18 08:35 (Diovan) 320 mg DAILY PO 01/02/18 09:00 01/02/18 08:34 (Lipitor) 40 mg DAILY PO 01/02/18 09:00 01/02/18 08:34 (Demadex) 20 mg DAILY PO 01/02/18 09:00 01/02/18 08:34 Physical Exam Vital Signs Vital Signs Date Time Temp Pulse Resp B/P (MAP) Pulse Ox O2 Delivery O2 Flow Rate FiO2 01/02/18 11:46 98.6 60 20 118/56 (76) 96 139/60 (86) 133/64 (87) 01/02/18 03:24 98.0 68 16 100/53 (69) 91 01/02/18 02:31 124/58 (80) 01/01/18 23:28 98.0 67 18 175/81 (112) 94 01/01/18 20:51 63 157/74 (101) 01/01/18 20:50 63 149/79 (102) 01/01/18 20:20 98.0 60 18 144/63 (90) 95 01/01/18 18:21 01/01/18 18:10 20 01/01/18 17:34 60 20 153/77 (102) 94 Room Air Physical Exam GENERAL: This is a well-nourished, well-developed patient, in no apparent distress. SKIN: No rashes, Cool and dry. HEAD: Feliciano's sign, No temporal or scalp tenderness. Facial and periorbital edema EYES: Pupils equal round and reactive. Extraocular motions intact. No scleral icterus. ENT: Nose without bleeding, purulent drainage or septal hematoma. Throat without erythema, tonsillar hypertrophy or exudate. Uvula midline. Airway patent. NECK: Trachea midline. No JVD or lymphadenopathy. Supple, nontender, no meningeal signs. CARDIOVASCULAR: Regular rate and rhythm with 2/6 CARLOS at the RUSB. Well-healed sternotomy RESPIRATORY: Clear to auscultation. Breath sounds equal bilaterally. No wheezes , rales, or rhonchi. GASTROINTESTINAL: Abdomen soft, non-tender, nondistended. No hepato-splenomegaly , or palpable masses. No guarding. MUSCULOSKELETAL: Extremities without clubbing, cyanosis, or edema. No joint tenderness, effusion, or edema noted. No calf tenderness. Negative Homans sign bilaterally. NEUROLOGICAL: Awake and alert. Cranial nerves II through XII intact. Motor and sensory grossly within normal limits. Five out of 5 muscle strength in all muscle groups. Normal speech. Laboratory Laboratory Tests Test 01/01/18 17:15 01/01/18 20:30 01/02/18 02:28 01/02/18 07:30 Urine Color LIGHT-YELLOW Urine Turbidity CLEAR Urine pH 5.5 Urine Specific Oden 1.003 Urine Protein NEG Urine Glucose (UA) NEG Urine Ketones NEG Urine Occult Blood NEG Urine Nitrite NEG Urine Bilirubin NEG Urine Urobilinogen LESS THAN 2.0 Urine Leukocyte Esterase NEG Urine RBC LESS THAN 1 Microscopic Urinalysis Comment CULT NOT INDICATED Total Creatine Kinase 101 95 Troponin I 0.05 0.06 Blood Urea Nitrogen 11 Creatinine 0.64 Random Glucose 88 Calcium Level 8.1 Sodium Level 141 Potassium Level 4.0 Chloride Level 109 Carbon Dioxide Level 26.9 Anion Gap 5 Estimat Glomerular Filtration Rate 122 White Blood Count 6.8 Red Blood Count 4.78 Hemoglobin 13.7 Hematocrit 39.9 Mean Corpuscular Volume 83.6 Mean Corpuscular Hemoglobin 28.7 Mean Corpuscular Hemoglobin Concent 34.3 Red Cell Distribution Width 14.0 Platelet Count 139 Mean Platelet Volume 8.8 Neutrophils (%) (Auto) 67.5 Lymphocytes (%) (Auto) 22.6 Monocytes (%) (Auto) 7.0 Eosinophils (%) (Auto) 2.0 Basophils (%) (Auto) 0.9 Neutrophils # (Auto) 4.6 Lymphocytes # (Auto) 1.5 Monocytes # (Auto) 0.5 Eosinophils # (Auto) 0.1 Basophils # (Auto) 0.1 CBC Comment DIFF FINAL Differential Comment Result Diagram: 01/02/18 0730 01/02/18 0228 Imaging Last Impressions Head CT 01/01/181510 Signed Impressions: Service Date/Time: December 15:44 - CONCLUSION: 1. No acute skull fracture identified. No acute cranial abnormality identified. 2. Soft tissue swelling within the left scalp as above. Clifford Britton MD Chest X-Ray 01/01/181510 Signed Impressions: Service Date/Time: December 15:36 - CONCLUSION: 1. Cardiomegaly. No acute abnormality. Clifford Britton MD Cervical Spine CT 01/01/181510 Signed Impressions: Service Date/Time: December 15:44 - CONCLUSION: 1. Degenerative spondylosis throughout the cervical spine. No acute fracture identified. Individual levels are discussed in detail above. Clifford Britton MD Maxillofacial CT 01/01/18 0000 Signed Impressions: Service Date/Time: December 15:44 - CONCLUSION: 1. No acute facial fracture identified. 2. Large area of soft tissue swelling with small hematoma in the scalp along the left frontal region. Clifford Britton MD Carotid Artery Ultrasound 01/01/18 0000 Signed Impressions: Service Date/Time: December 18:06 - CONCLUSION: Within normal limits. No significant plaque or narrowing. Kendall Carolina MD Aorta CTA 01/01/18 0000 Signed Impressions: Service Date/Time: December 22:38 - CONCLUSION: 1. Negative for thoracic and abdominal aortic aneurysm or dissection. 2. 3 mm nodule right upper lobe. Mucoid material in the right mainstem bronchus. Severe coronary calcifications. Richard Schrader MD Course Patient is stable with facial trauma. Assessment and Plan Problem List: (1) Diastolic CHF due to valvular disease ICD Codes: I38 - Endocarditis, valve unspecified; I50.30 - Unspecified diastolic (congestive) heart failure Status: Chronic (2) Prosthetic aortic valve stenosis ICD Codes: I35.0 - Nonrheumatic aortic (valve) stenosis Status: Acute (3) CAD (coronary artery disease) ICD Codes: I25.10 - Atherosclerotic heart disease of [place] coronary artery without angina pectoris Status: Chronic Assessment and Plan 72y/o male s/p tissue AVR in 2011 with what appears to be a Trifecta valve. His has the valve card with exact size etc. His syncope is most likely related to his aortic stenosis and he would likely need AVR again. I have consulted with Cardiology (Dr. Rojas) for his opinion and he will absolutely need Left and right heart cath prior to any surgical planning. He may be a candidate for valve-in valve TAVR IF he does not have significant obstructive CAD. His current ECHO shows a valve area of 0.8 cm2. I have discussed this with him and will require inpatient admission. Problem Qualifiers (1) Syncopal episodes: Qualified Codes: R55 - Syncope and collapse (2) CAD (coronary artery disease): Qualified Codes: I25.119 - Atherosclerotic heart disease of [place] coronary artery with unspecified angina pectoris Rose Enamorado MD Jan 02, 2018 16:19
[2018-01-02 16:44] VITALS: BP 120/62; PULSE 70; RESP 20; TEMP 97.9; O2SAT 98
[2018-01-02 16:49] VITALS: PULSE 61
[2018-01-02 21:04] VITALS: BP 153/67; PULSE 69; RESP 18; TEMP 98; O2SAT 94
[2018-01-03] VITALS (31 sets, daily range): BP systolic 114–154; BP diastolic 63–87; PULSE 52–71; RESP 16–18; TEMP 98–98.4; O2SAT 93–96
[2018-01-03] MEDS: ACETAMINOPHEN 325 MG TAB PO PRN (03:54)
--- NOTE | 2018-01-03 07:42 | MB ---
cc: HUMBLE CORRAL DO DATE OF CONSULTATION 01/02/2018 REASON FOR CONSULTATION Syncope. HISTORY OF PRESENT ILLNESS Miguelito Santiago is a pleasant 72-year-old male who presented to [facility] Emergency Room on 01/01/2018 after a syncopal episode. The patient is visiting from [place], [place] until February. Apparently he was seen by his exercise planner in [place] and they felt that his aortic valve may be getting more stenotic and he was set up to see a surgeon once he got back. While here he was sitting with his and round 11:30 a.m. he fell flat on his face. He states that he had tunnel vision with the feeling he was going to blackout and could not stop himself. 911 was called. Apparently there was a lot of blood on the floor and in seeing him he has ecchymosis around both eyes as well as multiple areas of wounds across his forehead. He also complains of chest pain, but this hurts with any kind of pressure against it with coughing. He has also noticed that he had been more short of breath the past few months with increasing leg swelling which led his doctor to believe that his aortic valve was getting worse. PAST MEDICAL HISTORY 1. Hypertension. 2. Hyperlipidemia. 3. Aortic stenosis. 4. Ascending aortic aneurysm, 4.5 cm. 5. Atrial fibrillation. 6. Obstructive sleep apnea on CPAP. PAST SURGICAL HISTORY 1. Aortic valve replacement (2011 with a bioprosthetic valve). 2. Coronary angiogram (2011) for which the patient states he had no significant disease. 3. Multiple orthopedic surgeries. ALLERGIES No known drug allergies. MEDICATIONS 1. Crestor 20 mg daily. 2. Valsartan 320 mg daily. 3. Aspirin 81 mg daily. 4. Zoloft 100 mg daily. 5. Lasix 20 mg daily. 6. Multivitamin daily. FAMILY HISTORY Denies sudden cardiac within the family. SOCIAL HISTORY The patient previously smoked but quit in 2011. He is a social drinker. Denies any drug abuse. REVIEW OF SYSTEMS 14-systems were reviewed including osteopathic. Pertinent positives and negatives as above; otherwise negative. PHYSICAL EXAMINATION VITAL SIGNS: Temperature 98.6, heart rate 60, blood pressure 133/64, respirations 20, pulse ox 96% on room air. GENERAL: In general the patient is in no acute distress, awake, alert and oriented x3. HEENT: Ecchymosis around both eyes with wounds above the eyebrows. Extraocular muscles intact. Mucous membranes moist. NECK: Supple. No JVD at 45 degrees. No carotid bruits heard bilaterally. Carotid upstroke is delayed in nature. HEART: Regular rate and rhythm. Positive first and second heart sounds with a 3/6 crescendo-decrescendo murmur to the right sternal border which dampens S2. LUNGS: Clear to auscultation bilaterally. No wheezes, rales or rhonchi. ABDOMEN: Soft, nontender, nondistended. No organomegaly noted. EXTREMITIES: No clubbing, cyanosis or edema. Femoral and distal pulses intact bilaterally. NEUROLOGIC: Neurologically no focal deficits. SKIN: Warm, dry and intact. MUSCULOSKELETAL: Osteopathically no kyphoscoliosis, lordosis or paraspinal tender points. LABORATORY Hemoglobin 13.7, hematocrit 39.9, platelets 139. Potassium 4.0, BUN 11, creatinine 0.64. Troponin 0.06. ELECTROCARDIOGRAM Electrocardiogram (January 02, 2018 at 0231): Sinus rhythm, first degree AV block, right bundle branch block, left anterior fascicular block. IMPRESSION 1. Severe aortic stenosis; previous bioprosthetic aortic valve. 2. Frequent syncopal episode secondary to aortic stenosis. 3. 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 4. Exertional dyspnea. 5. Peripheral edema. 6. Chest pain noted with coughing and palpation of the right side of his ribs. 7. History of the ascending aortic aneurysm. 8. Hypertension. 9. Hyperlipidemia. 10.Atrial fibrillation. 11.Obstructive sleep apnea. RECOMMENDATIONS 1. Mr. Santiago underwent an echocardiogram which shows severe aortic stenosis with an aortic valve area of 0.83 and a mean gradient of 45. 2. He has a previous bioprosthetic valve for which his has the card and we will obtain the type of bioprosthetic valve as well as the size. 3. He has been seen by Dr. Enamorado for consideration of valve and valve TAVR versus possible repeat AVR. 4. Will plan a left and right heart catheterization on Friday to evaluate his coronary anatomy as well as pressures. 5. With his trifascicular block if he were to undergo either TAVR or AVR will have to be careful about the necessity of pacemaker placement postoperatively. 6. At this time for his atrial fibrillation he will continue on aspirin 81 mg daily and I will place him on anticoagulation due to his multiple falls. There is also a question of some dark tarry stools and this will have to be further assessed. 7. Further recommendations will be made based on the hospital course. Thank you for allowing me to see Miguelito Santiago. If there are any questions please do not hesitate to call. Humble Corral DO VGP/BT /12:26 AM /7:12 AM
[2018-01-03] MEDS: TORSEMIDE 20 MG TAB PO SCH (10:19)
[2018-01-03] MEDS: SODIUM CHLORIDE 0.9% FLUSH 10 ML FLUSH IV FLUSH SCH ×2 (10:19→21:08)
[2018-01-03] MEDS: SERTRALINE HCL 100 MG TAB PO SCH (10:20)
[2018-01-03] MEDS: ATORVASTATIN 40 MG TAB PO SCH (10:21)
[2018-01-03] MEDS: VALSARTAN 160 MG TAB PO SCH (10:21)
[2018-01-03] MEDS: ASPIRIN 81 MG CHEW TAB CHEW SCH (10:22)
--- NOTE | 2018-01-03 14:05 | PD.CARD.PN ---
Subjective Subjective Remarks Patient was seen this morning, stopped back this afternoon to see the patient with his to further discuss Chest pain only with deep breathing over right ribs No SOB, no syncope/pre-syncope Objective Medications Current Medications Medications (Trade) Dose Ordered Sig/Jeanmarie Route Start Time Stop Time Status Last Admin (NS Flush) 2 ml UNSCH PRN IV FLUSH 01/01/18 17:45 (NS Flush) 2 ml BID IV FLUSH 01/01/18 21:00 01/03/18 10:19 (Narcan Inj) 0.4 mg UNSCH PRN IV PUSH 01/01/18 17:45 (Aspirin Chew) 81 mg DAILY CHEW 01/02/18 09:00 01/03/18 10:22 (Zoloft) 100 mg DAILY PO 01/02/18 09:00 01/03/18 10:20 (Diovan) 320 mg DAILY PO 01/02/18 09:00 01/03/18 10:21 (Lipitor) 40 mg DAILY PO 01/02/18 09:00 01/03/18 10:21 (Demadex) 20 mg DAILY PO 01/02/18 09:00 01/03/18 10:19 (Tylenol) 650 mg Q4H PRN PO 01/03/18 03:45 01/03/18 03:54 Vital Signs / I&O Vital Signs Date Time Temp Pulse Resp B/P (MAP) Pulse Ox O2 Delivery O2 Flow Rate FiO2 01/03/18 11:20 98.1 71 18 139/72 (94) 96 01/03/18 09:15 98.1 63 18 149/83 (105) 94 01/03/18 08:00 60 01/03/18 07:00 56 01/03/18 06:00 56 01/03/18 05:00 52 01/03/18 04:00 54 01/03/18 03:43 60 16 140/73 (95) 95 01/03/18 03:00 66 01/03/18 02:00 64 01/03/18 01:00 62 01/03/18 00:35 98.4 67 16 154/87 (109) 93 01/03/18 00:22 63 01/02/18 21:04 98.0 69 18 153/67 (95) 94 01/02/18 16:49 61 01/02/18 16:44 97.9 70 20 120/62 (81) 98 I/O 01/02/18 01/02/18 01/02/18 01/03/18 01/03/18 01/03/18 07:00 15:00 23:00 07:00 15:00 23:00 Intake Total 1150 ml 480 ml Output Total 1300 ml 600 ml Balance -150 ml -120 ml Intake Oral 1150 ml 480 ml Output Urine Total 1300 ml 600 ml # Bowel Movements 0 Physical Exam GENERAL: NAD, AAOx3 SKIN: Warm and dry. HEAD: Bilateral ecchymosis around eyes EYES: Pupils equal and round. No scleral icterus. No injection or drainage. ENT: No nasal bleeding or discharge. Mucous membranes pink and moist. NECK: Trachea midline. No JVD. CARDIOVASCULAR: RRR, 3/6 crescendo-decrescendo to the RSB RESPIRATORY: No accessory muscle use. Clear to auscultation. Breath sounds equal bilaterally. GASTROINTESTINAL: Abdomen soft, non-tender, nondistended. Hepatic and splenic margins not palpable. MUSCULOSKELETAL: Extremities without clubbing, cyanosis, or edema. No obvious deformities. NEUROLOGICAL: Awake and alert. No obvious cranial nerve deficits. Motor grossly within normal limits. Five out of 5 muscle strength in the arms and legs. Normal speech. PSYCHIATRIC: Appropriate mood and affect; insight and judgment normal. Assessment and Plan Problem List: (1) Prosthetic aortic valve stenosis ICD Codes: I35.0 - Nonrheumatic aortic (valve) stenosis Status: Acute (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 ICD Codes: I38 - Endocarditis, valve unspecified; I50.30 - Unspecified diastolic (congestive) heart failure Status: Chronic (3) CAD (coronary artery disease) ICD Codes: I25.10 - Atherosclerotic heart disease of [place] coronary artery without angina pectoris Status: Chronic (4) Syncopal episodes ICD Codes: R55 - Syncope and collapse (5) Facial contusion ICD Codes: S00.83XA - Contusion of other part of head, initial encounter Status: Acute (6) Head injury ICD Codes: S09.90XA - Unspecified injury of head, initial encounter Status: Acute (7) Syncope ICD Codes: R55 - Syncope and collapse Status: Acute Assessment and Plan 1) Severe of previous bioprosthetic valve ([place] 25) ALEN 0.83, mean grad 45 Plan for LHC/RHC on Friday for further evaluation Consideration of [id number] TAVR or AVR, depending on the results 2) Difficult to send home, especially since they drove with episodes of syncope 3) Will plan to call his bridge ironworker to further discuss plans on Friday 4) 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, with either TAVR or AVR will have to watch for advanced AV block 5) Afib Will continue off anticoagulation especially with recent syncopal episodes Problem Qualifiers (1) CAD (coronary artery disease): Qualified Codes: I25.119 - Atherosclerotic heart disease of [place] coronary artery with unspecified angina pectoris (2) Syncopal episodes: Qualified Codes: R55 - Syncope and collapse (3) Facial contusion: Qualified Codes: S00.83XA - Contusion of other part of head, initial encounter (4) Head injury: Qualified Codes: S09.90XA - Unspecified injury of head, initial encounter (5) Syncope: Qualified Codes: R55 - Syncope and collapse Humble Rojas DO Jan 03, 2018 14:05
--- NOTE | 2018-01-03 15:22 | HHI.PR ---
Subjective Remarks No further episodes of syncope or presyncope. Cardiac catheter planned on 01/05. If cardiac catheter shows stability patient will be having a TAVR. Objective Vital Signs Date Time Temp Pulse Resp B/P (MAP) Pulse Ox O2 Delivery O2 Flow Rate FiO2 01/03/18 11:20 98.1 71 18 139/72 (94) 96 01/03/18 09:15 98.1 63 18 149/83 (105) 94 01/03/18 08:00 60 01/03/18 07:00 56 01/03/18 06:00 56 01/03/18 05:00 52 01/03/18 04:00 54 01/03/18 03:43 60 16 140/73 (95) 95 01/03/18 03:00 66 01/03/18 02:00 64 01/03/18 01:00 62 01/03/18 00:35 98.4 67 16 154/87 (109) 93 01/03/18 00:22 63 01/02/18 21:04 98.0 69 18 153/67 (95) 94 01/02/18 16:49 61 01/02/18 16:44 97.9 70 20 120/62 (81) 98 I/O 01/02/18 01/02/18 01/02/18 01/03/18 01/03/18 01/03/18 07:00 15:00 23:00 07:00 15:00 23:00 Intake Total 1150 ml 480 ml Output Total 1300 ml 600 ml Balance -150 ml -120 ml Intake Oral 1150 ml 480 ml Output Urine Total 1300 ml 600 ml # Bowel Movements 0 Result Diagram: 01/02/18 0730 01/02/18 0228 Objective Remarks GENERAL: NAD, A&Ox3 HEAD: Normocephalic. Facial bruising, bilateral bruising at orbits. NECK: Supple, trachea midline. No lymphadenopathy. EYES: No scleral icterus. No injection or drainage. CARDIOVASCULAR: Regular rate and rhythm without murmurs, gallops, or rubs. RESPIRATORY: Breath sounds equal bilaterally. No accessory muscle use. GASTROINTESTINAL: Abdomen soft, non-tender, nondistended. MUSCULOSKELETAL: No cyanosis, or edema. SKIN: Warm and dry. NEURO: No focal neurological deficitis. A/P Problem List: (1) Syncopal episodes ICD Code: R55 - Syncope and collapse (2) Prosthetic aortic valve stenosis ICD Code: I35.0 - Nonrheumatic aortic (valve) stenosis Status: Acute (3) Facial contusion ICD Code: S00.83XA - Contusion of other part of head, initial encounter Status: Acute (4) Head injury ICD Code: S09.90XA - Unspecified injury of head, initial encounter Status: Acute (5) Syncope ICD Code: R55 - Syncope and collapse Status: Acute Assessment and Plan 72-year-old male with history of aortic valve replacement 2011 now with severe aortic stenosis, HTN, HLD, Afib, ROWAN on CPAP, presents with syncope Syncope Severe aortic stenosis Plan for valve replacement Cardiac evaluation with heart catheter planned Follow on telemetry Cardiology following Cardiothoracic surgery following Trauma Facial contusions No fractures of the face Right side pain and bruising will be evaluated with an x-ray Chest Pain Resolved Monitor for recurrence Cardiology following Heart catheter planned Hypertension Continue baseline treatment Follow blood pressures Adjust treatments as needed Hyperlipidemia Continue present treatment Follow as an outpatient ROWAN Continue CPAP DVT prophylaxis SCDs given recent trauma Problem Qualifiers (1) Syncopal episodes: Qualified Codes: R55 - Syncope and collapse (2) Facial contusion: Qualified Codes: S00.83XA - Contusion of other part of head, initial encounter (3) Head injury: Qualified Codes: S09.90XA - Unspecified injury of head, initial encounter (4) Syncope: Qualified Codes: R55 - Syncope and collapse Clifford Dick MD Jan 03, 2018 15:22
[2018-01-03] MEDS ORDERED: LIDOCAINE HCL 2% 100 MG/5 ML SYRINGE ONE (21:41)
[2018-01-03] MEDS ORDERED: ATROPINE SULFATE 1 MG/10 ML SYRINGE ONE (21:41)
[2018-01-03] MEDS ORDERED: EPINEPHrine HCL (1:10,000) 1 MG/10 ML SYRINGE ONE (21:41)
--- NOTE | 2018-01-03 22:10 | RADRPT ---
EXAM DATE/TIME: 01/03/2018 21:56 [facility] COMPARISON: No previous studies available for comparison. INDICATIONS : Chest pain post fall. MEDICAL HISTORY : Cardiovascular disease. SURGICAL HISTORY : Heart valve replacement. ENCOUNTER: Initial ACUITY: 2 days PAIN SCORE: 8/10 LOCATION: Right lower chest FINDINGS: 2 views of the chest demonstrates some indistinctness of the central bronchopulmonary markings and eq ualization of pulmonary flow between the upper and lower lobes. Evidence of prior median sternotomy and CABG with mild anterior cardiomegaly. Moderate degenerative changes of the thoracic spine. Both hemidiaphragms are well-defined. No focal areas of airspace consolidation. No evidence of pneumoth orax. CONCLUSION: Cardiomegaly and mild indistinctness of the central bronchopulmonary markings. Mac Matt MD on January 03, 2018 at 22:07 Board Certified Radiologist. This report was verified electronically.
[2018-01-04] VITALS (30 sets, daily range): BP systolic 119–136; BP diastolic 62–75; PULSE 51–74; RESP 16–18; TEMP 98.1–98.3; O2SAT 95–96
[2018-01-04 07:24] LABS: HEMATOCRIT 43.6 % (39.0-51.0); HEMOGLOBIN 14.9 GM/DL (13.0-17.0); MEAN CELL VOLUME 84.2 FL (80.0-100.0); MEAN CORPUSCULAR HEMOGLOBIN 28.7 PG (27.0-34.0); MEAN CORPUSCULAR HGB CONC 34.1 % (32.0-36.0); MEAN PLATELET VOLUME 9.1 FL (7.0-11.0); PLATELET COUNT 156 TH/MM3 (150-450); RED BLOOD COUNT 5.17 MIL/MM3 (4.50-5.90); RED CELL DISTRIBUTION WIDTH 14.3 % (11.6-17.2); WHITE BLOOD COUNT 7.2 TH/MM3 (4.0-11.0)
[2018-01-04 08:02] LABS: BICARBONATE 27.5 MEQ/L (21.0-32.0); CALCIUM 8.9 MG/DL (8.5-10.1); CREATININE 0.75 MG/DL (0.60-1.30)
[2018-01-04] MEDS: SERTRALINE HCL 100 MG TAB PO SCH (08:54)
[2018-01-04] MEDS: VALSARTAN 160 MG TAB PO SCH (08:54)
[2018-01-04] MEDS: ATORVASTATIN 40 MG TAB PO SCH (08:55)
[2018-01-04] MEDS: TORSEMIDE 20 MG TAB PO SCH (08:55)
[2018-01-04] MEDS: ASPIRIN 81 MG CHEW TAB CHEW SCH (08:56)
[2018-01-04] MEDS: ACETAMINOPHEN 325 MG TAB PO PRN (08:56)
[2018-01-04] MEDS: SODIUM CHLORIDE 0.9% FLUSH 10 ML FLUSH IV FLUSH SCH ×2 (08:59→21:09)
--- NOTE | 2018-01-04 10:13 | HHI.PR ---
Subjective Remarks Plan for TAVR tomorrow morning. Patient has no new complaints. No complaints of chest pain. We're using caution with any ambulation as patient has syncope related to his aortic stenosis. Objective Vital Signs Date Time Temp Pulse Resp B/P (MAP) Pulse Ox O2 Delivery O2 Flow Rate FiO2 01/04/18 06:00 60 01/04/18 05:00 54 01/04/18 04:15 63 16 136/75 (95) 95 01/04/18 04:00 56 01/04/18 03:00 51 01/04/18 02:00 58 01/04/18 01:00 56 01/04/18 00:00 60 01/03/18 23:30 62 16 128/72 (90) 94 01/03/18 23:00 68 01/03/18 22:00 64 01/03/18 21:00 68 01/03/18 20:00 66 01/03/18 19:40 98.0 67 16 128/75 (92) 93 01/03/18 19:00 70 01/03/18 18:00 62 01/03/18 17:00 62 01/03/18 16:00 58 01/03/18 15:11 98.4 65 18 114/63 (80) 96 01/03/18 15:00 66 01/03/18 14:00 66 01/03/18 13:00 66 01/03/18 12:00 66 01/03/18 11:20 98.1 71 18 139/72 (94) 96 01/03/18 11:00 67 I/O 01/03/18 01/03/18 01/03/18 01/04/18 01/04/18 01/04/18 07:00 15:00 23:00 07:00 15:00 23:00 Intake Total 480 ml 720 ml 480 ml Output Total 600 ml 750 ml 800 ml Balance -120 ml -30 ml -320 ml Intake Oral 480 ml 720 ml 480 ml Output Urine Total 600 ml 750 ml 800 ml # Bowel Movements 0 0 Result Diagram: 01/04/1854 01/04/18653 Objective Remarks GENERAL: NAD, A&Ox3 HEAD: Normocephalic. Facial bruising, bilateral bruising at orbits. NECK: Supple, trachea midline. No lymphadenopathy. EYES: No scleral icterus. No injection or drainage. CARDIOVASCULAR: Regular rate and rhythm without murmurs, gallops, or rubs. RESPIRATORY: Breath sounds equal bilaterally. No accessory muscle use. GASTROINTESTINAL: Abdomen soft, non-tender, nondistended. MUSCULOSKELETAL: No cyanosis, or edema. SKIN: Warm and dry. NEURO: No focal neurological deficitis. A/P Problem List: (1) Syncopal episodes ICD Code: R55 - Syncope and collapse (2) Prosthetic aortic valve stenosis ICD Code: I35.0 - Nonrheumatic aortic (valve) stenosis Status: Acute (3) Facial contusion ICD Code: S00.83XA - Contusion of other part of head, initial encounter Status: Acute (4) Head injury ICD Code: S09.90XA - Unspecified injury of head, initial encounter Status: Acute (5) Syncope ICD Code: R55 - Syncope and collapse Status: Acute Assessment and Plan 72-year-old male with history of aortic valve replacement 2012 now with severe aortic stenosis, HTN, HLD, Afib, ROWAN on CPAP, presents with syncope Labs reviewed. No signs of active bleeding. Continue to monitor labs. Labs ordered for further monitoring. Check CBC, BMP and coag panel tomorrow morning ; preop. Chest x-ray reveals no rib fracture at the right side, but clinically patient has a fracture at one of his middle left ribs related to the fall which happened with his syncopal episode. Patient is medically stable and cleared for surgery tomorrow. Syncope Severe aortic stenosis Plan for valve replacement Cardiac evaluation with heart catheter planned Follow on telemetry Cardiology following Cardiothoracic surgery following Trauma Facial contusions No fractures of the face Right side pain and bruising will be evaluated with an x-ray Chest Pain Resolved Monitor for recurrence Cardiology following Heart catheter planned Hypertension Continue baseline treatment Follow blood pressures Adjust treatments as needed Hyperlipidemia Continue present treatment Follow as an outpatient ROWAN Continue CPAP DVT prophylaxis SCDs given recent trauma Problem Qualifiers (1) Syncopal episodes: Qualified Codes: R55 - Syncope and collapse (2) Facial contusion: Qualified Codes: S00.83XA - Contusion of other part of head, initial encounter (3) Head injury: Qualified Codes: S09.90XA - Unspecified injury of head, initial encounter (4) Syncope: Qualified Codes: R55 - Syncope and collapse Clifford Dick MD Jan 04, 2018 10:13
--- NOTE | 2018-01-04 12:05 | PD.CARD.PN ---
Subjective Subjective Remarks Chest pain only with deep breathing over right ribs No SOB, no syncope/pre-syncope Objective Medications Current Medications Medications (Trade) Dose Ordered Sig/Jeanmarie Route Start Time Stop Time Status Last Admin (NS Flush) 2 ml UNSCH PRN IV FLUSH 01/01/18 17:45 (NS Flush) 2 ml BID IV FLUSH 01/01/18 21:00 01/04/18 08:59 (Narcan Inj) 0.4 mg UNSCH PRN IV PUSH 01/01/18 17:45 (Aspirin Chew) 81 mg DAILY CHEW 01/02/18 09:00 01/04/18 08:56 (Zoloft) 100 mg DAILY PO 01/02/18 09:00 01/04/18 08:54 (Diovan) 320 mg DAILY PO 01/02/18 09:00 01/04/18 08:54 (Lipitor) 40 mg DAILY PO 01/02/18 09:00 01/04/18 08:55 (Demadex) 20 mg DAILY PO 01/02/18 09:00 01/04/18 08:55 (Tylenol) 650 mg Q4H PRN PO 01/03/18 03:45 01/04/18 08:56 Vital Signs / I&O Vital Signs Date Time Temp Pulse Resp B/P (MAP) Pulse Ox O2 Delivery O2 Flow Rate FiO2 01/04/18 11:36 98.3 72 18 127/62 (83) 95 01/04/18 10:00 18 01/04/18 08:45 98.2 66 18 135/74 (94) 96 01/04/18 06:00 60 01/04/18 05:00 54 01/04/18 04:15 63 16 136/75 (95) 95 01/04/18 04:00 56 01/04/18 03:00 51 01/04/18 02:00 58 01/04/18 01:00 56 01/04/18 00:00 60 01/03/18 23:30 62 16 128/72 (90) 94 01/03/18 23:00 68 01/03/18 22:00 64 01/03/18 21:00 68 01/03/18 20:00 66 01/03/18 19:40 98.0 67 16 128/75 (92) 93 01/03/18 19:00 70 01/03/18 18:00 62 01/03/18 17:00 62 01/03/18 16:00 58 01/03/18 15:11 98.4 65 18 114/63 (80) 96 01/03/18 15:00 66 01/03/18 14:00 66 01/03/18 13:00 66 I/O 01/03/18 01/03/18 01/03/18 01/04/18 01/04/18 01/04/18 07:00 15:00 23:00 07:00 15:00 23:00 Intake Total 480 ml 720 ml 480 ml Output Total 600 ml 750 ml 800 ml Balance -120 ml -30 ml -320 ml Intake Oral 480 ml 720 ml 480 ml Output Urine Total 600 ml 750 ml 800 ml # Bowel Movements 0 0 Physical Exam GENERAL: NAD, AAOx3 SKIN: Warm and dry. HEAD: Bilateral ecchymosis around eyes EYES: Pupils equal and round. No scleral icterus. No injection or drainage. ENT: No nasal bleeding or discharge. Mucous membranes pink and moist. NECK: Trachea midline. No JVD. CARDIOVASCULAR: RRR, 3/6 crescendo-decrescendo to the RSB RESPIRATORY: No accessory muscle use. Clear to auscultation. Breath sounds equal bilaterally. GASTROINTESTINAL: Abdomen soft, non-tender, nondistended. Hepatic and splenic margins not palpable. MUSCULOSKELETAL: Extremities without clubbing, cyanosis, or edema. No obvious deformities. NEUROLOGICAL: Awake and alert. No obvious cranial nerve deficits. Motor grossly within normal limits. Five out of 5 muscle strength in the arms and legs. Normal speech. PSYCHIATRIC: Appropriate mood and affect; insight and judgment normal. Laboratory Laboratory Tests Test 01/04/18 06:54 White Blood Count 7.2 TH/MM3 Red Blood Count 5.17 MIL/MM3 Hemoglobin 14.9 GM/DL Hematocrit 43.6 % Mean Corpuscular Volume 84.2 FL Mean Corpuscular Hemoglobin 28.7 PG Mean Corpuscular Hemoglobin Concent 34.1 % Red Cell Distribution Width 14.3 % Platelet Count 156 TH/MM3 Mean Platelet Volume 9.1 FL Blood Urea Nitrogen 15 MG/DL Creatinine 0.75 MG/DL Random Glucose 104 MG/DL Calcium Level 8.9 MG/DL Sodium Level 142 MEQ/L Potassium Level 3.7 MEQ/L Chloride Level 106 MEQ/L Carbon Dioxide Level 27.5 MEQ/L Anion Gap 9 MEQ/L Estimat Glomerular Filtration Rate 102 ML/MIN Assessment and Plan Problem List: (1) Prosthetic aortic valve stenosis ICD Codes: I35.0 - Nonrheumatic aortic (valve) stenosis Status: Acute (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 ICD Codes: I38 - Endocarditis, valve unspecified; I50.30 - Unspecified diastolic (congestive) heart failure Status: Chronic (3) CAD (coronary artery disease) ICD Codes: I25.10 - Atherosclerotic heart disease of [place]iat[place] coronary artery without angina pectoris Status: Chronic (4) Syncopal episodes ICD Codes: R55 - Syncope and collapse (5) Facial contusion ICD Codes: S00.83XA - Contusion of other part of head, initial encounter Status: Acute (6) Head injury ICD Codes: S09.90XA - Unspecified injury of head, initial encounter Status: Acute (7) Syncope ICD Codes: R55 - Syncope and collapse Status: Acute Assessment and Plan 1) Severe of previous bioprosthetic valve (Mosaic 25) ALEN 0.83, mean grad 45 Plan for [facility] tomorrow for further evaluation Consideration of [id number] TAVR or AVR, depending on the results 2) Difficult to send home, especially since they drove and now with episodes of syncope, would suggest having valve fixed while here 3) Will plan to call his rate and cost analyst to further discuss plans on Friday 4) 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, with either TAVR or AVR will have to watch for advanced AV block 5) Afib Will continue off anticoagulation especially with recent syncopal episodes Problem Qualifiers (1) CAD (coronary artery disease): Qualified Codes: I25.119 - Atherosclerotic heart disease of [place] coronary artery with unspecified angina pectoris (2) Syncopal episodes: Qualified Codes: R55 - Syncope and collapse (3) Facial contusion: Qualified Codes: S00.83XA - Contusion of other part of head, initial encounter (4) Head injury: Qualified Codes: S09.90XA - Unspecified injury of head, initial encounter (5) Syncope: Qualified Codes: R55 - Syncope and collapse Humble Rojas DO Jan 04, 2018 12:05
[2018-01-05] VITALS (13 sets, daily range): BP systolic 109–131; BP diastolic 57–70; PULSE 58–76; RESP 16–20; TEMP 97.6–98.6; O2SAT 92–96
--- NOTE | 2018-01-05 05:52 | MB ---
cc: JOHN CORRAL HANSCY M.D. DATE OF CONSULTATION 01/04/2018 REASON FOR CONSULTATION Eight second pause. Episode of syncope. HISTORY OF PRESENT ILLNESS I was called by Dr. Corral about Mr. Santiago. He is a 72-year-old gentleman with coronary artery disease, previous aortic valve replacement, history of high blood pressure, seen by Dr. Corral, admitted due to syncopal episode. The gentleman is scheduled for a cardiac catheterization. He has trifascicular block. During the hospitalization he developed multiple pauses. One of them is around 8 seconds. I was consulted for evaluation and management. The chart was reviewed. The patient was evaluated. ALLERGIES None reported. SOCIAL HISTORY Negative for smoking and drinking. FAMILY HISTORY Noncontributory to his current medical condition. MEDICATIONS He is on - 1. Furosemide. 2. Sertraline. 3. Valsartan. 4. Crestor. 5. Centrum. 6. Aspirin. REVIEW OF SYSTEMS Currently he refers no chest pain, no chest discomfort. No vomiting. Some dizziness. No fever. PHYSICAL EXAMINATION GENERAL: On physical exam, alert, fully oriented. VITAL SIGNS: His blood pressure on evaluation is 119/72, pulse 60, respiratory rate 18. LUNGS: Ventilated. CARDIOVASCULAR: S1, S2. No gallop. No murmur. ABDOMEN: Soft, obese. No mass. EXTREMITIES: No edema. ELECTROCARDIOGRAM Indicates sinus rhythm, left bundle-branch block, first-degree AV block. LABORATORY DATA Hemoglobin 14.9, white blood cells 7.2. Potassium 2.7, creatinine 0.75. Troponin 0.06. INR 1.0. ASSESSMENT AND RECOMMENDATIONS Mr. Santiago has high-grade AV block. He had syncope. He has aortic stenosis, severe, with a mean gradient of over 48. He is not on a beta-ja and not on negative chronotropic medication. He developed multiple pauses, some of them over 8 seconds. The gentleman is going to need a pacemaker. The risks, the nature and the benefit of the procedure are clearly stated to him. The risks include pneumothorax, cardiac perforation, stroke and even . He understood and agreed to proceed. I will wait for the left heart catheterization by Dr. Corral in the morning. Based on the result, decision will be taken. MD KAMRON Mock /11:23 PM /5:38 AM
[2018-01-05 06:34] LABS: HEMATOCRIT 44.2 % (39.0-51.0); HEMOGLOBIN 15.2 GM/DL (13.0-17.0); MEAN CELL VOLUME 83.8 FL (80.0-100.0); MEAN CORPUSCULAR HEMOGLOBIN 28.8 PG (27.0-34.0); MEAN CORPUSCULAR HGB CONC 34.3 % (32.0-36.0); MEAN PLATELET VOLUME 9.3 FL (7.0-11.0); PLATELET COUNT 153 TH/MM3 (150-450); RED BLOOD COUNT 5.28 MIL/MM3 (4.50-5.90); RED CELL DISTRIBUTION WIDTH 14.2 % (11.6-17.2); WHITE BLOOD COUNT 7.9 TH/MM3 (4.0-11.0)
[2018-01-05 06:35] LABS: PROTHROMBIN TIME - PATIENT 10.2 SEC (9.8-11.6)
[2018-01-05 06:40] LABS: BICARBONATE 26.1 MEQ/L (21.0-32.0); CREATININE 0.76 MG/DL (0.60-1.30)
--- NOTE | 2018-01-05 07:55 | HHI.PR ---
Subjective Remarks sitting on the chair. denies chest pain or sob. has mild pain to the right chest wall. Objective Vitals Vital Signs Date Time Temp Pulse Resp B/P (MAP) Pulse Ox O2 Delivery O2 Flow Rate FiO2 01/05/18 06:00 58 01/05/18 05:00 64 01/05/18 04:00 58 01/05/18 03:38 66 18 109/69 (82) 95 01/05/18 03:00 59 01/05/18 02:00 62 01/05/18 01:00 60 01/05/18 00:00 64 01/04/18 23:13 71 16 120/65 (83) 96 01/04/18 23:00 66 01/04/18 22:00 60 01/04/18 21:00 60 01/04/18 20:00 62 01/04/18 19:38 98.1 64 16 125/72 (89) 95 01/04/18 19:00 63 01/04/18 18:00 60 01/04/18 17:00 70 01/04/18 16:00 64 01/04/18 15:45 98.3 69 18 119/72 (88) 96 01/04/18 15:00 73 01/04/18 14:00 68 01/04/18 13:00 56 01/04/18 12:00 74 01/04/18 11:36 98.3 72 18 127/62 (83) 95 01/04/18 11:00 68 01/04/18 10:00 64 01/04/18 10:00 18 01/04/18 09:00 68 01/04/18 08:45 98.2 66 18 135/74 (94) 96 01/04/18 08:00 60 I/O 01/04/18 01/04/18 01/04/18 01/05/18 01/05/18 01/05/18 07:00 15:00 23:00 07:00 15:00 23:00 Intake Total 480 ml 720 ml 240 ml Output Total 800 ml 1500 ml 725 ml Balance -320 ml -780 ml -485 ml Intake Oral 480 ml 720 ml 240 ml Output Urine Total 800 ml 1500 ml 725 ml # Bowel Movements 0 0 Result Diagram: 01/05/1852401/05/18524 Imaging Last Impressions Chest X-Ray 01/03/18 Signed Impressions: Service Date/Time: Wednesday, January 03, 2018 21:56 - CONCLUSION: Cardiomegaly and mild indistinctness of the central bronchopulmonary markings. Mac Matt MD Head CT 01/01/181510 Signed Impressions: Service Date/Time: December 15:44 - CONCLUSION: 1. No acute skull fracture identified. No acute cranial abnormality identified. 2. Soft tissue swelling within the left scalp as above. Clifford Britton MD Cervical Spine CT 01/01/181510 Signed Impressions: Service Date/Time: December 15:44 - CONCLUSION: 1. Degenerative spondylosis throughout the cervical spine. No acute fracture identified. Individual levels are discussed in detail above. Clifford Britton MD Maxillofacial CT 01/01/18 Signed Impressions: Service Date/Time: December 15:44 - CONCLUSION: 1. No acute facial fracture identified. 2. Large area of soft tissue swelling with small hematoma in the scalp along the left frontal region. Clifford Britton MD Carotid Artery Ultrasound 01/01/18 Signed Impressions: Service Date/Time: December 18:06 - CONCLUSION: Within normal limits. No significant plaque or narrowing. Kendall Carolina MD Aorta CTA 01/01/18 Signed Impressions: Service Date/Time: December 22:38 - CONCLUSION: 1. Negative for thoracic and abdominal aortic aneurysm or dissection. 2. 3 mm nodule right upper lobe. Mucoid material in the right mainstem bronchus. Severe coronary calcifications. Richard Schrader MD Objective Remarks GENERAL: This is a well-nourished, well-developed patient, in no apparent distress. CARDIOVASCULAR: Regular rate and regular rhythm without murmurs, gallops, or rubs. RESPIRATORY: Clear to auscultation. Breath sounds equal bilaterally. No wheezes , rales, or rhonchi. GASTROINTESTINAL: Abdomen soft, non-tender, nondistended. Normal, active bowel sounds MUSCULOSKELETAL: Extremities without clubbing, cyanosis, or edema. NEURO: Alert & Oriented x4 to person, place, time, situation. Moves all ext x4 Medications and IVs Inpatient Medications Acetaminophen (Tylenol) 650 mg Q4H PRN PO temp > 100.4/romero Last administered on 01/04/18 08:56; Start 01/03/18 at 03:45 Aspirin (Aspirin Chew) 81 mg DAILY CHEW Last administered on 01/04/18at 08:56; Start 01/02/18 at 09:00 Atorvastatin Calcium (Lipitor) 40 mg DAILY PO Last administered on 01/04/18 08 :55; Start 01/02/18 at 09:00 Labetalol HCl (Trandate) 200 mg ONCE ONCE PO Last administered on 01/01/18at 23: 25; Start 01/01/18 at 21:00; Stop 01/01/18 at 21:22; Status DC Morphine Sulfate (Morphine Inj) 2 mg ONCE ONCE IV PUSH Last administered on 01/02/18at 05:08; Start 01/02/18 at 04:00; Stop 01/02/18 at 04:01; Status DC Naloxone HCl (Narcan Inj) 0.4 mg UNSCH PRN IV PUSH SEE LABEL COMMENTS; Start at 17:45 Nitroglycerin (Nitrostat Sl) 0.4 mg Q5M PRN SL CHEST PAIN Last administered on 01/02/18at 03:05; Start 01/02/18 at 02:30; Stop 01/02/18 at 03:54; Status DC Ondansetron HCl (Zofran Inj) 4 mg ONCE ONCE IV PUSH Last administered on at 16:54; Start 01/01/18 at 16:45; Stop 01/01/18 at 16:46; Status DC Sertraline HCl (Zoloft) 100 mg DAILY PO Last administered on 01/04/18at 08:54; Start 01/02/18 at 09:00 Sodium Chloride 250 ml @ 250 mls/hr BOLUS ONCE IV Last administered on at 04:04; Start 01/02/18 at 04:00; Stop 01/02/18 at 04:59; Status DC Sodium Chloride (NS Flush) 2 ml BID IV FLUSH Last administered on 01/04/18at 21: 09; Start 01/01/18 at 21:00 Torsemide (Demadex) 20 mg DAILY PO Last administered on 01/04/18at 08:55; Start 01/02/18 at 09:00 Valsartan (Diovan) 320 mg DAILY PO Last administered on 01/04/18at 08:54; Start 01/02/18 at 09:00 A/P Assessment and Plan Syncope Severe aortic stenosis Plan for valve replacement Cardiac evaluation with heart catheterization planned; heart catheterization today. Follow on telemetry Cardiology following Cardiothoracic surgery following Trauma Facial contusions No fractures of the face Right side pain and bruising will be evaluated with an x-ray Chest Pain Resolved Monitor for recurrence Cardiology following Heart catheter planned Hypertension Continue baseline treatment Follow blood pressures Adjust treatments as needed Hyperlipidemia Continue present treatment Follow as an outpatient ROWAN Continue CPAP DVT prophylaxis SCDs given recent trauma Discharge Planning for heart catheterization today; CT surgery consulted. Tres Kowalski MD Jan 05, 2018 07:55
[2018-01-05] MEDS: SERTRALINE HCL 100 MG TAB PO SCH (09:00)
[2018-01-05] MEDS: VALSARTAN 160 MG TAB PO SCH (09:00)
[2018-01-05] MEDS: TORSEMIDE 20 MG TAB PO SCH (09:00)
[2018-01-05] MEDS: SODIUM CHLORIDE 0.9% FLUSH 10 ML FLUSH IV FLUSH SCH ×2 (09:00→20:59)
[2018-01-05] MEDS: ATORVASTATIN 40 MG TAB PO SCH (09:00)
[2018-01-05] MEDS: ASPIRIN 81 MG CHEW TAB CHEW SCH (09:00)
[2018-01-05] MEDS ORDERED: HEPARIN-NS/PF FLUSH BAG 1,000 ML IV FLUSH ONE (09:07)
[2018-01-05] MEDS ORDERED: HEPARIN SODIUM - IV 10,000 UNITS/10 ML VIAL ONE (10:13)
--- NOTE | 2018-01-05 10:51 | CATHPROC ---
WHObyYOU HIS Report Study Information Study Number Admission Scheduled Start Study Start [id number] Jan 02 2018 9:29PM 01/04/2018 Jan 05 2018 9:04AM [place] Service Cardiac Catheterization Admit Source Facility Department Other [facility] - Final Dressing Cutter Physician and Clinical Staff Initial MD Rojas, Humble Neon Electricianmarty Londono RN, Bharat Other cathlab, cathlab Recorder Alonso Sanders RCIS(BS) Scrub Stephie Steven,RT(R) Procedures Performed Procedure Location (Site) Vessel Name Coronary Angiograms LCA Left Coronary Coronary Angiograms RCA Right Coronary IVUS Fem Art (right) Femoral Art Pacemaker Temp Fem Art (right) Femoral Art Wire insertion Fem Art (right) Femoral Art Equipment Time Crop Picker Description Size Mfg Part Number Used/Scraped WIRE, BALANCE MIDDLEWEIGHT [id number] 10:16 [employer] 190CM Used 190CM *[id number] 09:04 DENG RUBIO PACING CATHETER J CURVE FR 5 Used *[id number] 09:04 DENG RUBIO SWAN BAIRON CATHETER FR 7 Used *[id number] TRANSDUCER, TRUWAVE [id number] 09:04 DENG RUBIO * Used W/STOCKCOCK *[id number] TRANSDUCER, TRUWAVE [id number] 09:04 DENG RUBIO * Used W/STOCKCOCK *[id number] INTRODUCER SET, 09:04 [employer] FR 5 [id number] *[id number] Used MICROPUNCTURE, STIFFENED [id number] *[id number] 09:04 [facility] INDUSTRIES PACK, CCL CUSTOM * Used *[id number] 09:37 MEDTRONIC JR 4.0 DXTERITY CATHETER FR 5 Used *[id number] 10:14 MEDTRONIC/AVE EBU 4.0 Z2 GUIDE CATHETER FR 6 Used *[id number] 10:11 [employer] MEDICAL PACK, ANGIOPLASTY * [id number] Used [id number] 09:04 [employer] MEDICAL WIRE, 3MMJ .035 180CM 180CM Used *[id number] 09:04 NAMIC MANIFOLD, 2 PORT * Used *[id number] 09:04 NAMIC MANIFOLD, 4 PORT * Used *[id number] 09:04 NYCOMED OMNIPAQUE, 350 MG, 150ML 150ML [id number] Used [id number] 09:04 SHERMAN MEDICAL BLANKET,WARM AIR CCL * Used *[id number] 09:04 TERUMO MEDICAL SHEATH, FR5 TERUMO (10CM) FR 5 Used *[id number] 10:13 TERUMO MEDICAL SHEATH, FR6 TERUMO (10CM) FR 6 Used *[id number] 09:04 TERUMO MEDICAL SHEATH, FR7 TERUMO (10CM) FR 7 Used *[id number] CATHETER, UPPER [employer] [id number] 10:12 [employer]OL[employer]O Used IMAGING *[id number] Equipment Model, Serial, Lot Number and Expiration Data Description Model Number Serial Number Lot Number Expiration Date CATHETER, UPPER [employer] [id number] 08-23-2019 IMAGING JR 4.0 DXTERITY CATHETER [id number] 08-20-2020 PACK, ANGIOPLASTY [id number] 08-23-2020 History: Current Medications Medication Dosage/Unit Route Frequency Last Date/Time Taken ASA Zoloft DIOVAN LIPITOR Demadex History: Allergies Allergy Reaction No Known Allergies History: Risk Factors Family History of Hypertension Dyslipidemia Previous OH Previous Heart Failure Premature CAD Yes Yes No No No Prior Valve Prior PCI Prior CABG Surgery Yes No No Cerebrovascular Peripheral Artery Chronic Lung On Dialysis Diabetes Disease Disease Disease No No No Yes No History: Symptoms/Diagnosis Selection Items Syncope History: Stress Tests Stress or Imaging Studies Performed No History: Other Disease Selection Items CAD HTN History: OH/CV Data Previous Valve Previous Cath Date Replacement Date 11/24/2011 11/24/2011 History: Other Current Smoker Quit Packs a Day Years Used Pack Years No 6 Years Ago 12 23 30 Labs Hgb (g/dl) Hct (%) WBC (l/cumm) Platelets (thousands) 11.60-17.00 35.00-51.00 4.00-11.00 150.00-450.00 15.2 44.2 7.9 153 Glucose (mg/dl) BUN (mg/dl) Creatinine (mg/dl) BUN:Creatinine (1:x) 74.00-106.00 7.00-18.00 0.50-1.30 10.00-20.00 97 19 0.7 27.1 Na (meq/l) K (meq/l) 136.00-145.00 3.50-5.10 139 3.8 Troponin I (ng/ml) CPK (u/l) CPK-MB (ng/ML) 0.02-0.05 26.00-308.00 0.50-3.60 0.06 95 1.3 Medication Medication Total Dose (Bolus/Oral) Medication Total Dosage/Unit 1% XYLOCAINE 20 mL FENTANYL 50 mcg HEPARIN 7500 units Medications (Bolus/Oral) Medication Time Given Dosage/Unit Administered By Reason 1% XYLOCAINE 01/05/2018 9:42:41 AM 20 mL Humble Rojas 20 mL 1% XYLOCAINE given in lab by Humble Rojas in Right Groin via Subcutaneous. Ordered by Humble Zhang FENTANYL 01/05/2018 9:44:43 AM 50 mcg Bharat Londono RN 50 mcg FENTANYL given in lab by Bharat Londono RN in Right Hand via Peripheral IV. Ordered by Humble Rojas HEPARIN 01/05/2018 10:15:00 AM 7500 units Bry COPELAND, Bharat 7500 units HEPARIN given in lab by Bharat Londono RN in Left Hand via Peripheral IV. Ordered by Humble Brantley Medication (Drip) Medication Time Given Dosage/Unit Concentration/Unit Diluent (ml) Solution IV Solutions 01/05/2018 9:13:38 AM 0 mL (IV) 500 NaCl .9 Patient arrived on IV Solutions given by cathlab, cathasiya in Right Hand via Peripheral IV. Pump/Drip Flow = 20 ml/hr using NaCl .9. Ordered by Humble Rojas Initial Case Assessment Cardiovascular HR Rhythm NIBP Chest Pain 62 afib 152/83 0 Edema Present Skin color Skin None Normal Warm Dry Circulatory - Right Pulses Posterior Tibial Femoral 3 3 Scale (0,1,2,3,4,d) Circulatory - Left Pulses Posterior Tibial Femoral 3 3 Scale (0,1,2,3,4,d) Neurological State Oriented to time-place- Alert Moves all extremities person Respiration - General Respiration Rate SpO2 (%) (B/min) 15 96 Final Case Assessment Cardiovascular HR NIBP Chest Pain 62 117/64 0 Edema Present Skin color Skin None Normal Warm Dry Circulatory - Right Pulses Posterior Tibial Femoral 3 3 Scale (0,1,2,3,4,d) Circulatory - Left Pulses Posterior Tibial Femoral 3 3 Scale (0,1,2,3,4,d) Neurological State Oriented to time-place- Alert Moves all extremities person Respiration - General Respiration Rate SpO2 (%) (B/min) 9 93 Chronological Log Time Study Chronological Log 9::24 Patient arrived via Bed. 9:13: Patient Name, D.O.B, / Armband Verified By R.N. 9:: Consent signed by the physician and the patient and verified by the Final Dressing Cutter staff. 9:13: Pre-op and post- op instructions given; patient acknowledges understanding of instructions. 9:13: Verbal Stimulation=2 Physical Stimulation=2 Airway=2 Respiration=2 TOTAL=8. (0=absent, 1=li mited, 2=present) 9:13:27 Presedation assessment performed by Final Dressing Cutter RN. 9:13:28 Immediate Presedation assesment performed by physician. 9:13:28 Patient has been NPO for More than 6Hrs. 9:13:29 Skin Breakdown-none per patient 9:13:29 Patient Warmer Placed on the Table. 9:13:30 Teresa Prominences Protected 9:13:32 A # 20 IV was noted in the Hand (right). Grade = 0 9:13:33 A # 20 IV was noted in the Forearm (left). Grade = 0 Patient arrived on IV Solutions given by cathlab, cathlab in Right Hand via Peripheral IV. Pum p/Drip Flow = 20 ml/hr 9:13:38 using NaCl .9. Ordered by Humble Rojas 9:13:39 History and physical on the chart or being dictated. Vitals capture started with the following parameters, Patient=Adult, Interval=5 min, Initial P ewxqhlt=967 mmHg, 9:18:43 Deflation Rate=5 mmHg, Cuff placed on Left Arm Assessment: Initial Case, HR=62 BPM, Rhythm=afib, ZCYM=397/83 mmhg, Chest Pain=0, Edema=None, Color=Normal, Skin = Warm, Dry Right Pulses: Post Tib=3, Femoral=3 9:18:45 Left Pulses: Post Tib=3, Femoral=3 Neurological: State=Alert, Ox3, WITT Respiration: Resp=15 B/min, SpO2=96 % 9:19:11 Reference ECG taken 9:19:23 HR=61 bpm, OYIW=683/83 mmhg, SpO2=96.0 %, Resp=16 B/min, Pain=0, Bryan=10, Hendricks=2 9:23:22 Bilateral groins prepped with 2% chlorhexidine, and draped after a 3 minute waiting time. 9:24:26 HR=60 bpm, DORH=978/81 mmhg, SpO2=97.0 %, Resp=14 B/min, Pain=0, Bryan=10, Hendricks=2 9:29:00 Pressure channel 1 zeroed. 9:29:25 HR=62 bpm, JTKF=803/73 mmhg, SpO2=95.0 %, Resp=13 B/min, Pain=0, Bryan=10, Hendricks=2 9:30:50 MD paged 9:34:26 HR=61 bpm, DQGF=699/72 mmhg, SpO2=94.0 %, Resp=13 B/min, Pain=0, Bryan=10, Hendricks=2 9:34:32 MD responded 9:37:42 MD arrived. 9:39:25 HR=57 bpm, NAMF=842/69 mmhg, SpO2=92.0 %, Resp=18 B/min, Pain=0, Bryan=10, Hendricks=2 Time Out. Correct patient, correct procedure, correct physician, power injector not loaded with contrast with surgical 9:41:23 team present. Time Out Concurred by MD and individual staff in procedure. 9:41:40 Case Start 20 mL 1% XYLOCAINE given in lab by Humble Rojas in Right Groin via Subcutaneous. Ordered by Bob 9:42:41 Humble Bess 9:44:29 HR=64 bpm, LVBS=972/67 mmhg, SpO2=95.0 %, Resp=15 B/min, Pain=0, Bryan=10, Hendricks=2 9:44:43 50 mcg FENTANYL given in lab by Bharat Londono RN in Right Hand via Peripheral IV. Ordered by Humble Rojas 9:46:17 Access site was Right Femoral Artery. A INTRODUCER SET, MICROPUNCTURE, STIFFENED FR 5 was advanced into the Fem Art (right) using the 9:46:44 Percutaneous technique. A SHEATH, FR5 TERUMO (10CM) FR 5 was exchanged in the Fem Art (right). This was necessary in or gianni to 9:47:15 accomodate a larger catheter. 9:49:28 HR=64 bpm, DOLM=266/78 mmhg, SpO2=94.0 %, Resp=13 B/min, Pain=0, Bryan=10, Hendricks=2 9:49:35 Access site was Right Femoral Vein. A INTRODUCER SET, MICROPUNCTURE, STIFFENED FR 5 was advanced into the Fem Vein (right) using th e 9:50:16 Percutaneous technique. A SHEATH, FR7 TERUMO (10CM) FR 7 was exchanged in the Fem Vein (right). This was necessary in o rder to 9:50:34 accomodate a larger catheter. 9:52:10 An injection in the Fem Art (right) was made through the SHEATH, FR5 TERUMO (10CM) FR 5. 9:52:22 A SWAN BAIRON CATHETER FR 7 was inserted via Fem Vein (right) 9:54:27 HR=60 bpm, TMBJ=987/71 mmhg, SpO2=93.0 %, Resp=10 B/min, Pain=0, Bryan=10, Hendricks=2 Recorded Pressure: PCW, HR=60, Condition=Condition 1 9:57:46 (Pulmonary Capillary Wedge) PCW 1514/13 9:59:19 Saturation: Site=PA (Pulmonary Artery) , O2=79.4 %, Hgb=15.2 gm/dl, Condition=Condition 1. U sed in calculation. 9:59:26 HR=60 bpm, LTER=277/73 mmhg, SpO2=96.0 %, Resp=9 B/min, Pain=0, Bryan=10, Hendricks=2 10:00:09 Saturation: Site=Ao (Aorta) , O2=96.7 %, Hgb=15.2 gm/dl, Condition=Condition 1. Used in lawrence culation. 10:00:40 Saturation: Site=PA (Pulmonary Artery) , O2=78.5 %, Hgb=15.2 gm/dl, Condition=Condition 1. Used in calculation. Recorded Pressure: MPA, HR=60, Condition=Condition 1 10:02:28 (Main Pulmonary Artery) MPA Recorded Pressure: RV, HR=58, Condition=Condition 1 10:03:03 (Right Ventricle) RV Recorded Pressure: RA, HR=58, Condition=Condition 1 10:03:30 (Right Atrium) RA 10:03:43 [place] Bairon Catheter Removed A JR 4.0 DXTERITY CATHETER FR 5 was advanced over a wire. OMNIPAQUE, 350 MG, 150ML 150ML was us ed for 10:04:05 injections. 10:05:04 HR=60 bpm, PBLE=059/67 mmhg, SpO2=93.0 %, Resp=7 B/min, Pain=0, Bryan=10, Hendricks=2 10:05:44 The RCA was injected and visualized at various angles. OMNIPAQUE, 350 MG, 150ML 150ML used . Recorded Pressure: Ao, HR=58, Condition=Condition 1 10:05:59 (Aorta) Ao 106/55/75 10:06:46 Catheter was removed A JL 4.0 INFINITI CATHETER FR 5 was advanced over a wire. OMNIPAQUE, 350 MG, 150ML 150ML was us ed for 10:06:52 injections. 10:08:30 The LCA was injected and visualized at various angles. OMNIPAQUE, 350 MG, 150ML 150ML used . 10:09:22 HR=59 bpm, XVIL=832/75 mmhg, SpO2=93.0 %, Resp=12 B/min, Pain=0, Bryan=10, Hendricks=2 10:11:28 Catheter was removed A SHEATH, FR6 TERUMO (10CM) FR 6 was exchanged in the Fem Art (right). This was necessary in or gianni to 10:12:21 accomodate a larger catheter. 10:14:25 HR=63 bpm, JQXA=674/79 mmhg, SpO2=94.0 %, Resp=16 B/min A EBU 4.0 Z2 GUIDE CATHETER FR 6 was advanced over a wire. OMNIPAQUE, 350 MG, 150ML 150ML was u sed for 10:14:26 injections. 10:15:00 7500 units HEPARIN given in lab by Bharat Londono RN in Left Hand via Peripheral IV. Ordered by Humble Rojas 10:15:19 Catheter was removed 10:16:24 A WIRE, BALANCE MIDDLEWEIGHT 190CM 190CM was inserted via Fem Art (right). 10:17:45 Interventional wire has crossed the lesion 10:19:04 An CATHETER, UPPER [employer] IMAGING was advanced through the lesion. Images saved o [employer] IVUS hard drive 10:19:28 HR=65 bpm, YGHW=364/64 mmhg, SpO2=94.0 %, Resp=12 B/min, Pain=0, Bryan=10, Hendricks=2 10:20:08 IVUS in progress using CATHETER, UPPER [employer] IMAGING 10:24:27 HR=61 bpm, WFUM=926/65 mmhg, SpO2=95.0 %, Resp=10 B/min, Pain=0, Bryan=10, Hendricks=2 10:24:50 IVUS catheter removed 10:25:01 Wire removed 10:25:30 Catheter was removed 10:27:10 A PACING CATHETER J CURVE FR 5 was advanced to the right ventricle. Rate = 40, Output = 5, MA = 5. 10:29:30 HR=65 bpm, SESC=841/64 mmhg, SpO2=93.0 %, Resp=16 B/min, Pain=0, Bryan=10, Hendricks=2 10:29:46 Case End Assessment: Final Case, HR=62 BPM, NGEJ=551/64 mmhg, Chest Pain=0, Edema=None, Color=Normal, Sk in = Warm, Dry Right Pulses: Post Tib=3, Femoral=3 10:29:49 Left Pulses: Post Tib=3, Femoral=3 Neurological: State=Alert, Ox3, WITT Respiration: Resp=9 B/min, SpO2=93 % 10:29:50 Catheter(s) removed without difficulty 10:30:03 In the Fem Art (right) the SHEATH, FR6 TERUMO (10CM) FR [address] by Humble Rojas 10:30:12 In the Fem Vein (right) the SHEATH, FR7 TERUMO (10CM) FR [address] by Humble Rojas 10:30:13 Sterile dressing applied to site 10:30:14 No case complications noted. 10:30:16 Cine recording checked. 10:30:18 Bedside Report will be given. 10:30:22 Contrast Scanned 10:30:24 A Left and Right Heart Cath was performed. 10:30:35 Activated Clotting Time Drawn 10:35:02 HR=62 bpm, VKFB=978/75 mmhg, SpO2=95.0 %, Resp=8 B/min, Pain=0, Bryan=10, Hendricks=2 10:35:07 ACT (Normal Range 90-180) = 267 10:39:30 HR=61 bpm, TWAB=046/75 mmhg, SpO2=94.0 %, Resp=8 B/min, Pain=0, Bryan=10, Hendricks=2 10:44:29 HR=60 bpm, PBBU=972/71 mmhg, SpO2=94.0 %, Resp=14 B/min, Pain=0, Bryan=10, Hendricks=2 10:48:52 [facility] Study - Contrast Media Used In Study Contrast Total Opened (mL) Total Used (mL) Total Wasted (mL) Omnipaque 70 70 0 End Study - Maximum Contrast Load Max Contrast Load (mL) 760.7 End Study - Radiation Exposure Fluoro Time (minutes) 6.7 End Study - Patient Disposition Complications Transferred To Interventional Outcome No Critical Care Bed No attempt made
[2018-01-05] MEDS ORDERED: ONDANSETRON HCL 4 MG/2 ML VIAL IV PUSH PRN (11:00)
[2018-01-05] MEDS ORDERED: SODIUM CHLOR 0.9% 250 ML INJ 250 ML IV PRN (11:00)
[2018-01-05] MEDS ORDERED: ATROPINE SULFATE 1 MG/ML VIAL IV PUSH PRN (11:00)
[2018-01-05] MEDS ORDERED: MISC INFORMATION XX ONE (11:15)
--- NOTE | 2018-01-05 14:05 | PD.CAR.PN ---
CVT Progress Note Subjective/Hospital Course: No complaints. Syncope most likely related to dysrhythmia for which he is scheduled for PPM placement today. Objective: Vital Signs Date Time Temp Pulse Resp B/P (MAP) Pulse Ox O2 Delivery O2 Flow Rate FiO2 01/05/18 13:12 60 01/05/18 12:30 98.6 61 16 131/70 (90) 94 01/05/18 06:00 58 01/05/18 05:00 64 01/05/18 04:00 58 01/05/18 03:38 66 18 109/69 (82) 95 01/05/18 03:00 59 01/05/18 02:00 62 01/05/18 01:00 60 01/05/18 00:00 64 01/04/18 23:13 71 16 120/65 (83) 96 01/04/18 23:00 66 01/04/18 22:00 60 01/04/18 21:00 60 01/04/18 20:00 62 01/04/18 19:38 98.1 64 16 125/72 (89) 95 01/04/18 19:00 63 01/04/18 18:00 60 01/04/18 17:00 70 01/04/18 16:00 64 01/04/18 15:45 98.3 69 18 119/72 (88) 96 01/04/18 15:00 73 Labs: Laboratory Tests Test 01/05/18 05:25 White Blood Count 7.9 TH/MM3 (4.0-11.0) Red Blood Count 5.28 MIL/MM3 (4.50-5.90) Hemoglobin 15.2 GM/DL (13.0-17.0) Hematocrit 44.2 % (39.0-51.0) Mean Corpuscular Volume 83.8 FL (80.0-100.0) Mean Corpuscular Hemoglobin 28.8 PG (27.0-34.0) Mean Corpuscular Hemoglobin Concent 34.3 % (32.0-36.0) Red Cell Distribution Width 14.2 % (11.6-17.2) Platelet Count 153 TH/MM3 (150-450) Mean Platelet Volume 9.3 FL (7.0-11.0) Prothrombin Time 10.2 SEC (9.8-11.6) Prothromb Time International Ratio 1.0 RATIO Activated Partial Thromboplast Time 24.4 SEC (24.3-30.1) Blood Urea Nitrogen 19 MG/DL (7-18) Creatinine 0.76 MG/DL (0.60-1.30) Random Glucose 97 MG/DL (74-106) Calcium Level 9.0 MG/DL (8.5-10.1) Sodium Level 139 MEQ/L (136-145) Potassium Level 3.8 MEQ/L (3.5-5.1) Chloride Level 105 MEQ/L (98-107) Carbon Dioxide Level 26.1 MEQ/L (21.0-32.0) Anion Gap 8 MEQ/L (5-15) Estimat Glomerular Filtration Rate 100 ML/MIN (>89) Result Diagram: 01/05/1852401/05/18524 Imaging: Last Impressions Chest X-Ray 01/03/18 Signed Impressions: Service Date/Time: Wednesday, January 03, 2018 21:56 - CONCLUSION: Cardiomegaly and mild indistinctness of the central bronchopulmonary markings. Mac Matt MD Head CT 01/01/181510 Signed Impressions: Service Date/Time: December 15:44 - CONCLUSION: 1. No acute skull fracture identified. No acute cranial abnormality identified. 2. Soft tissue swelling within the left scalp as above. Clifford Britton MD Cervical Spine CT 01/01/181510 Signed Impressions: Service Date/Time: December 15:44 - CONCLUSION: 1. Degenerative spondylosis throughout the cervical spine. No acute fracture identified. Individual levels are discussed in detail above. Clifford Britton MD Maxillofacial CT 01/01/18 Signed Impressions: Service Date/Time: December 15:44 - CONCLUSION: 1. No acute facial fracture identified. 2. Large area of soft tissue swelling with small hematoma in the scalp along the left frontal region. Clifford Britton MD Carotid Artery Ultrasound 01/01/18 Signed Impressions: Service Date/Time: December 18:06 - CONCLUSION: Within normal limits. No significant plaque or narrowing. Kendall Carolina MD Aorta CTA 01/01/18 Signed Impressions: Service Date/Time: December 22:38 - CONCLUSION: 1. Negative for thoracic and abdominal aortic aneurysm or dissection. 2. 3 mm nodule right upper lobe. Mucoid material in the right mainstem bronchus. Severe coronary calcifications. Richard Schrader MD Cardiovascular: RRR Telemetry: NSR Pulmonary: CTA GI/: NABS, NT Plan: [facility] shows no significant CAD, so he would benefit from TAVR - valve in valve. 25 Mosaic valve confirmed from his valve card. 23 Mary 3 or 23 Corevalve would be the TAVR valves of choice. He would like to have this done once cleared from the PPM placement. 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 (3) CAD (coronary artery disease) (4) Syncopal episodes (5) Facial contusion (6) Head injury (7) Syncope Problem Qualifiers (1) CAD (coronary artery disease): Qualified Codes: I25.119 - Atherosclerotic heart disease of [place] coronary artery with unspecified angina pectoris (2) Syncopal episodes: Qualified Codes: R55 - Syncope and collapse (3) Facial contusion: Qualified Codes: S00.83XA - Contusion of other part of head, initial encounter (4) Head injury: Qualified Codes: S09.90XA - Unspecified injury of head, initial encounter (5) Syncope: Qualified Codes: R55 - Syncope and collapse Rose Enamorado MD Jan 05, 2018 14:05
--- NOTE | 2018-01-05 15:17 | PD.CARD.PN ---
Subjective Subjective Remarks Last night had multiple episodes of 3rd degree heart block One episode of syncope Post cath today Objective Medications Current Medications Medications (Trade) Dose Ordered Sig/Jeanmarie Route Start Time Stop Time Status Last Admin (NS Flush) 2 ml UNSCH PRN IV FLUSH 01/01/18 17:45 (NS Flush) 2 ml BID IV FLUSH 01/01/18 21:00 01/04/18 21:09 (Narcan Inj) 0.4 mg UNSCH PRN IV PUSH 01/01/18 17:45 (Aspirin Chew) 81 mg DAILY CHEW 01/02/18 09:00 01/04/18 08:56 (Zoloft) 100 mg DAILY PO 01/02/18 09:00 01/04/18 08:54 (Diovan) 320 mg DAILY PO 01/02/18 09:00 01/04/18 08:54 (Lipitor) 40 mg DAILY PO 01/02/18 09:00 01/04/18 08:55 (Demadex) 20 mg DAILY PO 01/02/18 09:00 01/04/18 08:55 (Tylenol) 650 mg Q4H PRN PO 01/03/18 03:45 01/04/18 08:56 (Percocet 5-325 Mg) 1 tab Q4H PRN PO 01/05/18 11:00 (Percocet 5-325 Mg) 2 tab Q4H PRN PO 01/05/18 11:00 (Atropine Inj) 0.5 mg UNSCH PRN IV PUSH 01/05/18 11:00 Sodium Chloride 250 ml @ 500 mls/hr ONCE PRN IV 01/05/18 11:00 01/06/18 10:59 (Zofran Inj) 4 mg Q4H PRN IV PUSH 01/05/18 11:00 Vital Signs / I&O Vital Signs Date Time Temp Pulse Resp B/P (MAP) Pulse Ox O2 Delivery O2 Flow Rate FiO2 01/05/18 13:12 60 01/05/18 12:30 98.6 61 16 131/70 (90) 94 01/05/18 06:00 58 01/05/18 05:00 64 01/05/18 04:00 58 01/05/18 03:38 66 18 109/69 (82) 95 01/05/18 03:00 59 01/05/18 02:00 62 01/05/18 01:00 60 01/05/18 00:00 64 01/04/18 23:13 71 16 120/65 (83) 96 01/04/18 23:00 66 01/04/18 22:00 60 01/04/18 21:00 60 01/04/18 20:00 62 01/04/18 19:38 98.1 64 16 125/72 (89) 95 01/04/18 19:00 63 01/04/18 18:00 60 01/04/18 17:00 70 01/04/18 16:00 64 01/04/18 15:45 98.3 69 18 119/72 (88) 96 I/O 01/04/18 01/04/18 01/04/18 01/05/18 01/05/18 01/05/18 07:00 15:00 23:00 07:00 15:00 23:00 Intake Total 480 ml 720 ml 240 ml Output Total 800 ml 1500 ml 725 ml Balance -320 ml -780 ml -485 ml Intake Oral 480 ml 720 ml 240 ml Output Urine Total 800 ml 1500 ml 725 ml # Bowel Movements 0 0 Physical Exam GENERAL: NAD, AAOx3 SKIN: Warm and dry. HEAD: Bilateral ecchymosis around eyes EYES: Pupils equal and round. No scleral icterus. No injection or drainage. ENT: No nasal bleeding or discharge. Mucous membranes pink and moist. NECK: Trachea midline. No JVD. CARDIOVASCULAR: RRR, 3/6 crescendo-decrescendo to the RSB RESPIRATORY: No accessory muscle use. Clear to auscultation. Breath sounds equal bilaterally. GASTROINTESTINAL: Abdomen soft, non-tender, nondistended. Hepatic and splenic margins not palpable. MUSCULOSKELETAL: Extremities without clubbing, cyanosis, or edema. No obvious deformities. NEUROLOGICAL: Awake and alert. No obvious cranial nerve deficits. Motor grossly within normal limits. Five out of 5 muscle strength in the arms and legs. Normal speech. PSYCHIATRIC: Appropriate mood and affect; insight and judgment normal. Laboratory Laboratory Tests Test 01/05/18 05:25 White Blood Count 7.9 TH/MM3 Red Blood Count 5.28 MIL/MM3 Hemoglobin 15.2 GM/DL Hematocrit 44.2 % Mean Corpuscular Volume 83.8 FL Mean Corpuscular Hemoglobin 28.8 PG Mean Corpuscular Hemoglobin Concent 34.3 % Red Cell Distribution Width 14.2 % Platelet Count 153 TH/MM3 Mean Platelet Volume 9.3 FL Prothrombin Time 10.2 SEC Prothromb Time International Ratio 1.0 RATIO Activated Partial Thromboplast Time 24.4 SEC Blood Urea Nitrogen 19 MG/DL Creatinine 0.76 MG/DL Random Glucose 97 MG/DL Calcium Level 9.0 MG/DL Sodium Level 139 MEQ/L Potassium Level 3.8 MEQ/L Chloride Level 105 MEQ/L Carbon Dioxide Level 26.1 MEQ/L Anion Gap 8 MEQ/L Estimat Glomerular Filtration Rate 100 ML/MIN Assessment and Plan Problem List: (1) Prosthetic aortic valve stenosis ICD Codes: I35.0 - Nonrheumatic aortic (valve) stenosis Status: Acute (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 ICD Codes: I38 - Endocarditis, valve unspecified; I50.30 - Unspecified diastolic (congestive) heart failure Status: Chronic (3) CAD (coronary artery disease) ICD Codes: I25.10 - Atherosclerotic heart disease of [place] coronary artery without angina pectoris Status: Chronic (4) Syncopal episodes ICD Codes: R55 - Syncope and collapse (5) Facial contusion ICD Codes: S00.83XA - Contusion of other part of head, initial encounter Status: Acute (6) Head injury ICD Codes: S09.90XA - Unspecified injury of head, initial encounter Status: Acute (7) Syncope ICD Codes: R55 - Syncope and collapse Status: Acute Assessment and Plan 1) Severe of previous bioprosthetic valve (Mosaic 25) ALEN 0.83, mean grad 45 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 Casiano Agree with need to place PPM and replacing the valve as [place] Problem Qualifiers (1) CAD (coronary artery disease): Qualified Codes: I25.119 - Atherosclerotic heart disease of [place] coronary artery with unspecified angina pectoris (2) Syncopal episodes: Qualified Codes: R55 - Syncope and collapse (3) Facial contusion: Qualified Codes: S00.83XA - Contusion of other part of head, initial encounter (4) Head injury: Qualified Codes: S09.90XA - Unspecified injury of head, initial encounter (5) Syncope: Qualified Codes: R55 - Syncope and collapse Humble Rojas DO Jan 05, 2018 15:17
[2018-01-05] MEDS ORDERED: IOHEXOL 350 MG/ML 100 ML BTL (for Cath Lab) OTHER ONE (16:23)
--- NOTE | 2018-01-05 17:51 | HHI.PR ---
Subjective Remarks Tired Objective Vital Signs Date Time Temp Pulse Resp B/P (MAP) Pulse Ox O2 Delivery O2 Flow Rate FiO2 01/05/18 13:12 60 01/05/18 12:30 98.6 61 16 131/70 (90) 94 01/05/18 06:00 58 01/05/18 05:00 64 01/05/18 04:00 58 01/05/18 03:38 66 18 109/69 (82) 95 01/05/18 03:00 59 01/05/18 02:00 62 01/05/18 01:00 60 01/05/18 00:00 64 01/04/18 23:13 71 16 120/65 (83) 96 01/04/18 23:00 66 01/04/18 22:00 60 01/04/18 21:00 60 01/04/18 20:00 62 01/04/18 19:38 98.1 64 16 125/72 (89) 95 01/04/18 19:00 63 01/04/18 18:00 60 I/O 01/04/18 01/04/18 01/04/18 01/05/18 01/05/18 01/05/18 07:00 15:00 23:00 07:00 15:00 23:00 Intake Total 480 ml 720 ml 240 ml Output Total 800 ml 1500 ml 725 ml Balance -320 ml -780 ml -485 ml Intake Oral 480 ml 720 ml 240 ml Output Urine Total 800 ml 1500 ml 725 ml # Bowel Movements 0 0 Result Diagram: 01/05/18 0525 01/05/18 0525 Imaging Alert, fully oriented Lungs: ventilated Heart: S1, s2 regular, no gallop Abdomen: soft, obese, no mass Ext: no edema Last Impressions Chest X-Ray 01/03/18 0000 Signed Impressions: Service Date/Time: Wednesday, January 03, 2018 21:56 - CONCLUSION: Cardiomegaly and mild indistinctness of the central bronchopulmonary markings. Mac Matt MD Head CT 01/01/18 1511 Signed Impressions: Service Date/Time: December 15:44 - CONCLUSION: 1. No acute skull fracture identified. No acute cranial abnormality identified. 2. Soft tissue swelling within the left scalp as above. Clifford Britton MD Cervical Spine CT 01/01/18 1511 Signed Impressions: Service Date/Time: December 15:44 - CONCLUSION: 1. Degenerative spondylosis throughout the cervical spine. No acute fracture identified. Individual levels are discussed in detail above. Clifford Britton MD Maxillofacial CT 01/01/18 0000 Signed Impressions: Service Date/Time: December 15:44 - CONCLUSION: 1. No acute facial fracture identified. 2. Large area of soft tissue swelling with small hematoma in the scalp along the left frontal region. Clifford Britton MD Carotid Artery Ultrasound 01/01/18 0000 Signed Impressions: Service Date/Time: December 18:06 - CONCLUSION: Within normal limits. No significant plaque or narrowing. Kendall Carolina MD Aorta CTA 01/01/18 0000 Signed Impressions: Service Date/Time: December 22:38 - CONCLUSION: 1. Negative for thoracic and abdominal aortic aneurysm or dissection. 2. 3 mm nodule right upper lobe. Mucoid material in the right mainstem bronchus. Severe coronary calcifications. Richard Schrader MD Current Medications Medications (Trade) Dose Ordered Sig/Jeanmarie Route Start Time Stop Time Status Last Admin (NS Flush) 2 ml UNSCH PRN IV FLUSH 01/01/18 17:45 (NS Flush) 2 ml BID IV FLUSH 01/01/18 21:00 01/04/18 21:09 (Narcan Inj) 0.4 mg UNSCH PRN IV PUSH 01/01/18 17:45 (Aspirin Chew) 81 mg DAILY CHEW 01/02/18 09:00 01/04/18 08:56 (Zoloft) 100 mg DAILY PO 01/02/18 09:00 01/04/18 08:54 (Diovan) 320 mg DAILY PO 01/02/18 09:00 01/04/18 08:54 (Lipitor) 40 mg DAILY PO 01/02/18 09:00 01/04/18 08:55 (Demadex) 20 mg DAILY PO 01/02/18 09:00 01/04/18 08:55 (Tylenol) 650 mg Q4H PRN PO 01/03/18 03:45 01/04/18 08:56 (Percocet 5-325 Mg) 1 tab Q4H PRN PO 01/05/18 11:00 (Percocet 5-325 Mg) 2 tab Q4H PRN PO 01/05/18 11:00 (Atropine Inj) 0.5 mg UNSCH PRN IV PUSH 01/05/18 11:00 Sodium Chloride 250 ml @ 500 mls/hr ONCE PRN IV 01/05/18 11:00 01/06/18 10:59 (Zofran Inj) 4 mg Q4H PRN IV PUSH 01/05/18 11:00 Assessment and Plan Problem List: (1) Symptomatic bradycardia ICD Codes: R00.1 - Bradycardia, unspecified Plan: No new episode today Stable. temporary pacer inserted Permanent pacemaker tomorrow (2) Syncopal episodes ICD Codes: R55 - Syncope and collapse Plan: No new episode reported Problem Qualifiers (1) Syncopal episodes: Qualified Codes: R55 - Syncope and collapse Jorge Francis MD Jan 05, 2018 17:51
[2018-01-05] MEDS: oxyCODONE/ACETAMINOPHEN 5 MG/325 MG TAB PO PRN (20:33)
[2018-01-05] MEDS: TEMAZEPAM 7.5 MG CAP PO PRN (22:16)
[2018-01-06] VITALS (10 sets, daily range): BP systolic 102–124; BP diastolic 50–71; PULSE 61–81; RESP 14–20; TEMP 97.9–99.5; O2SAT 94–97
[2018-01-06] MEDS: oxyCODONE/ACETAMINOPHEN 5 MG/325 MG TAB PO PRN ×4 (01:30→21:05)
[2018-01-06 05:31] LABS: AUTOMATED NEUTROPHIL # 6.6 TH/MM3 (1.8-7.7); BASOPHIL # 0.1 TH/MM3 (0-0.2); BASOPHIL % 0.9 % (0.0-2.0); EOSINOPHIL # 0.3 TH/MM3 (0-0.4); EOSINOPHIL % 2.9 % (0.0-4.0); HEMATOCRIT 42.1 % (39.0-51.0); HEMOGLOBIN 14.5 GM/DL (13.0-17.0); LYMPH % 16.5 % (9.0-44.0); LYMPHOCYTE # 1.5 TH/MM3 (1.0-4.8); MEAN CELL VOLUME 84.3 FL (80.0-100.0); MEAN CORPUSCULAR HGB CONC 34.4 % (32.0-36.0); MEAN PLATELET VOLUME 8.7 FL (7.0-11.0); MONO % 6.7 % (0.0-8.0); MONOCYTE # 0.6 TH/MM3 (0-0.9); PLATELET COUNT 153 TH/MM3 (150-450); RED BLOOD COUNT 4.99 MIL/MM3 (4.50-5.90)
[2018-01-06 06:01] LABS: BICARBONATE 28.8 MEQ/L (21.0-32.0); CALCIUM 8.9 MG/DL (8.5-10.1); CREATININE 0.8 MG/DL (0.60-1.30)
[2018-01-06] MEDS ORDERED: POVIDONE IODINE 5% (ANTISEPSIS KIT) 4 APPLICATIONS EACH NARE PRN (07:00)
[2018-01-06] MEDS ORDERED: SODIUM CHLORID 0.9% 500 ML IV PRN (07:00)
[2018-01-06] MEDS ORDERED: LACTATED RINGER'S 1000 ML IV PRN (07:00)
[2018-01-06] MEDS ORDERED: CHLORHEXIDINE GLUCONATE 2 % 1 PACK (2 CLOTHS) TOPICAL PRN (07:00)
[2018-01-06] MEDS ORDERED: METOPROLOL TARTRATE 25 MG TAB PO PRN (07:00)
--- NOTE | 2018-01-06 07:39 | HHI.PR ---
Subjective Remarks The patient is in the bed. Patient complaints of neck and back stiffness and says he has pain. Pain meds helps with pain but not with stiffness. Awaiting for PM placement today. No chest apin or sob. Feels a little better. No n/v/d/c. Objective Vitals Vital Signs Date Time Temp Pulse Resp B/P (MAP) Pulse Ox O2 Delivery O2 Flow Rate FiO2 01/06/18 03:00 64 01/06/18 03:00 65 01/06/18 03:00 98.0 61 16 105/52 (69) 94 01/05/18 23:00 98.1 63 20 111/66 (81) 96 01/05/18 23:00 63 01/05/18 23:00 61 01/05/18 19:00 97.6 67 16 116/62 (80) 93 01/05/18 19:00 65 01/05/18 19:00 69 01/05/18 18:36 62 01/05/18 15:00 62 01/05/18 15:00 98.6 61 18 123/57 (79) 92 01/05/18 13:12 60 01/05/18 12:30 98.6 61 16 131/70 (90) 94 01/05/18 11:20 60 I/O 01/05/18 01/05/18 01/05/18 01/06/18 01/06/18 01/06/18 07:00 15:00 23:00 07:00 15:00 23:00 Intake Total 240 ml 1000 ml 480 ml Output Total 725 ml 700 ml 650 ml Balance -485 ml 300 ml -170 ml Intake Oral 240 ml 0 ml 480 ml IV Total 1000 ml Output Urine Total 725 ml 700 ml 650 ml # Voids 3 # Bowel Movements 0 0 0 Result Diagram: 01/06/18 0515 01/06/18 0515 Imaging Last Impressions Chest X-Ray 01/03/18 0000 Signed Impressions: Service Date/Time: Wednesday, January 03, 2018 21:56 - CONCLUSION: Cardiomegaly and mild indistinctness of the central bronchopulmonary markings. Mac Matt MD Head CT 01/01/18 1511 Signed Impressions: Service Date/Time: December 15:44 - CONCLUSION: 1. No acute skull fracture identified. No acute cranial abnormality identified. 2. Soft tissue swelling within the left scalp as above. Clifford Britton MD Cervical Spine CT 01/01/18 1511 Signed Impressions: Service Date/Time: December 15:44 - CONCLUSION: 1. Degenerative spondylosis throughout the cervical spine. No acute fracture identified. Individual levels are discussed in detail above. Clifford Britton MD Maxillofacial CT 01/01/18 0000 Signed Impressions: Service Date/Time: December 15:44 - CONCLUSION: 1. No acute facial fracture identified. 2. Large area of soft tissue swelling with small hematoma in the scalp along the left frontal region. Clifford Britton MD Carotid Artery Ultrasound 01/01/18 0000 Signed Impressions: Service Date/Time: December 18:06 - CONCLUSION: Within normal limits. No significant plaque or narrowing. Kendall Carolina MD Aorta CTA 01/01/18 0000 Signed Impressions: Service Date/Time: December 22:38 - CONCLUSION: 1. Negative for thoracic and abdominal aortic aneurysm or dissection. 2. 3 mm nodule right upper lobe. Mucoid material in the right mainstem bronchus. Severe coronary calcifications. Richard Schrader MD Objective Remarks GENERAL: This is a well-nourished, well-developed patient, in no apparent distress. CARDIOVASCULAR: Regular rate and regular rhythm without murmurs, gallops, or rubs. RESPIRATORY: Clear to auscultation. Breath sounds equal bilaterally. No wheezes , rales, or rhonchi. GASTROINTESTINAL: Abdomen soft, non-tender, nondistended. Normal, active bowel sounds MUSCULOSKELETAL: Extremities without clubbing, cyanosis, or edema. NEURO: Alert & Oriented x4 to person, place, time, situation. Moves all ext x4 A/P Assessment and Plan Syncope Severe aortic stenosis Plan for valve replacement Cardiac evaluation with heart catheterization planned; heart catheterization today. Follow on telemetry Cardiology following Cardiothoracic surgery following Trauma Facial contusions No fractures of the face Right side pain and bruising will be evaluated with an x-ray Chest Pain Resolved Monitor for recurrence Cardiology following Heart catheter planned Hypertension Continue baseline treatment Follow blood pressures Adjust treatments as needed Hyperlipidemia Continue present treatment Follow as an outpatient ROWAN Continue CPAP DVT prophylaxis SCDs given recent trauma Discharge Planning s/p heart catheterization today CT surgery consulted. Plan for PPM by Dr Francis 01/06/18 Latasha Ibrahim MD Jan 06, 2018 07:39
[2018-01-06] MEDS: ASPIRIN 81 MG CHEW TAB CHEW SCH (08:08)
[2018-01-06] MEDS: ATORVASTATIN 40 MG TAB PO SCH (08:08)
[2018-01-06] MEDS: SERTRALINE HCL 100 MG TAB PO SCH (08:08)
[2018-01-06] MEDS: TORSEMIDE 20 MG TAB PO SCH (08:09)
[2018-01-06] MEDS: SODIUM CHLORIDE 0.9% FLUSH 10 ML FLUSH IV FLUSH SCH ×3 (08:11→21:00)
[2018-01-06] MEDS: VALSARTAN 160 MG TAB PO SCH (08:11)
--- NOTE | 2018-01-06 08:25 | MA ---
cc: HUMBLE CORRAL DO DATE OF PROCEDURE January 05, 2018 PROCEDURE Coronary angiogram, right heart catheterization, IVUS left main, temporary venous pacemaker placement. PREPROCEDURE DIAGNOSIS Severe aortic stenosis for possible TAVR versus AVR, third degree heart block, syncope. POSTPROCEDURE DIAGNOSIS Severe bioprosthetic aortic stenosis, third degree heart block, syncope, coronary artery disease. MEDICATIONS 1. Fentanyl 50 mcg. 2. Heparin 7500 units. CONTRAST USED 70 mL. FLUOROSCOPY 6.7 minutes MODERATE SEDATION 0 minutes. ESTIMATED BLOOD LOSS 10 cc. PROCEDURAL SUMMARY Dashawn Santiago is a pleasant 72-year-old male who presented to [facility] Emergency Room after a syncopal episode. He was found to have severe stenosis of his bioprosthetic AVR. He also was found to have third degree heart block for which he was symptomatic. He was recommended left and right heart catheterization before consideration of possible TAVR versus AVR. The risks, benefits and alternatives were explained to him and he consent as such. He was brought to lab and prepped in the usual sterile fashion. The right femoral artery was accessed using a modified Seldinger technique and placement of a 5-Belarusian sheath. The right femoral vein was accessed using a modified Seldinger technique and placement of a 7-Belarusian sheath. Both were easily aspirated and flushed. A [place] catheter was advanced up the femoral sheath to a wedge position. Pressures and oxygen saturations were taken in the standard fashion on pullback throughout the heart. The [place] catheter was then removed. A JR-4 catheter was advanced to the ascending aorta over a J-wire. It was not felt prudent to cross the aortic valve as aortic stenosis was significant on echocardiogram. JR-4 was used for selective angiography of the right coronary artery system. This was exchanged out for a JL-4 which was used for selective angiography of the left coronary artery system. There was a concern for possible left main disease and, as this would change his procedure significantly, I felt that this should be further investigated. A 5-Bel[place]ian sheath was exchanged for a 6-Belarusian sheath. The patient was given heparin as an anticoagulant. An EBU 4 guide was then engaged in the left main. A BMW wire was advanced down the LAD and an IVUS catheter was placed into the LAD. Recordings were done on pullback of the IVUS catheter twice. The wire was removed. Final angiogram shows no disruption of the coronary anatomy. Review of IVUS films show the left main does have calcium but minimal area, was 7.8 mm2 showing nonsignificant stenosis. The guide was removed. Due to this patient's significant third degree heart block with symptoms, a transvenous pacer was then placed. It was set at backup rate of 40 with a sensitivity if 3 mA and an output of 5 mV. 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 FINDINGS LEFT MAIN: Ostial 30% disease. It bifurcates into an LAD and circumflex. LAD: Normal-sized vessel with mild luminal irregularities throughout the proximal portion. The midportion has a 40% lesion. Mid to distally there is a 50% lesion. Overall it gives off three diagonals with the first one being the largest with 30% disease. LEFT CIRCUMFLEX: Normal-sized vessel with mild luminal irregularities throughout the proximal portion. It gives off one small obtuse marginal. RCA: Normal-size vessel with no significant disease. HEMODYNAMIC RESULTS RA 7. RV 27/6. RVEDP 9. PA 28/39, mean PA 18. Wedge 13. AL 106/55. Cardiac output 7.4. Cardiac index 3.4. IMPRESSION 1. Severe bioprosthetic aortic stenosis by echocardiogram. 2. Third degree heart block. 3. Syncope. 4. Moderate coronary artery disease as above. RECOMMENDATIONS 1. Mr. Santiago presented with syncope which may be due to aortic stenosis or his third degree heart block. 2. As above. He has moderate coronary artery disease. 3. Transvenous pacer was placed due to his symptomatic third degree heart block. He was seen by Dr. Francis and will most likely undergo permanent pacemaker placement today or tomorrow. 4. He will be evaluated by the structural heart team for consideration of TAVR with valve in valve therapy due to frailty as well as previous open heart surgery. 5. As he had a temporary venous pacemaker placed, he will be placed in the CV ICU. 6. Further recommendations will be made based on the hospital course. Thank you for allowing me to see Dashawn Santiago. If there are any questions, please do not hesitate to call. Humble Corral DO VGP/SSB /11:02 PM /8:07 AM
[2018-01-06] MEDS ORDERED: LIDOCAINE HCL 2% 50 ML VIAL ONE (11:08)
[2018-01-06] MEDS ORDERED: ceFAZolin INJ 1,000 MG VIAL ONE (11:09)
[2018-01-06] MEDS ORDERED: VANCOMYCIN HCL 1000 MG VIAL ONE (11:09)
[2018-01-06] MEDS ORDERED: VANCOMYCIN 500 MG VIAL ONE (11:09)
[2018-01-06] MEDS ORDERED: PROPOFOL 200 MG/20 ML AMP IV ONE (12:00)
[2018-01-06] MEDS ORDERED: ePHEDrine/NS 25 MG/5 ML SYRINGE IV ONE (12:00)
[2018-01-06] MEDS ORDERED: PILL SPLITTER OTHER PRN (12:15)
[2018-01-06] MEDS ORDERED: MIDAZOLAM HCL 2 MG/2 ML VIAL ONE (12:57)
[2018-01-06] MEDS ORDERED: CYCLOBENZAPRINE HCL 10 MG TAB PO PRN (13:00)
--- NOTE | 2018-01-06 13:13 | CATHPROC ---
Jumping Nuts HIS Report Study Information Study Number Admission Scheduled Start Study Start [id number] 01/02/2018 01/06/2018 Jan 06 2018 9:14AM [place] Service Cardiac Pacer/ICD Referring Institution Admit Source Facility Department 1 Other [facility] - [facility] Journeyman Physician and Clinical Staff Initial Jorge Haynes Pattern Carrier Radha Victoria RN Pattern CarrierJaime Gregg,DINORAH Other Anesthesia, MANAGER INFRASTRUCTURE Recorder Citlalli Quispe,GRADING MACHINE FEEDER TECH2 Recorder Bry COPELAND, Alonso Ram RCIS(BS) Procedures Performed Procedure Lead Insertion Equipment Time Tissue Inserter Description Size Mfg Part Number Used/Scraped DERMABOND, ADHESIVE SKIN [id number] 09:18 CORDIS/PACER * Used GLUE MINI *[id number] DERMABOND, ADHESIVE SKIN [id number] 11:17 CORDIS/PACER * Used GLUE MINI *[id number] TP-1103 11:17 MEDLINE INDUSTRIES SUTURE, STRIP PLUS 1/2" * Used *[id number] TP-1103 09:18 MEDLINE INDUSTRIES SUTURE, STRIP PLUS 1/2" * Used *[id number] 09:18 MEDLINE PACER ROYAL, LIMB * 2530 *[id number] Used 11:17 MEDLINE PACER ROYAL, LIMB * 2530 *[id number] Used [id number] 09:18 MEDLINE PACER PACK, PACER CUSTOM * Used *[id number] 11:17 MEDLINE PACER PACK, PACER CUSTOM * Used *[id number] 12:27 [employer] MEDICAL PACER SAFE SHEATH, FR7, 13CM FR 7 CLS-1007 Used 12:27 [employer] MEDICAL PACER SAFE SHEATH, FR7, 13CM FR 7 [id number] Used 11:50 Needle Sponge Count 2 22 Used 11:50 Needle Sponge Count 20 200 Used 11:50 Needle Sponge Count 4 4 Used SUTURE, 0 ETHIBOND [CT1] (CX21D), 8pk SUTURE, 0 ETHIBOND [CT1] (CX21D), 8pk SUTURE, 2-0 VICRYL [CT1] ([id number]) SUTURE, 2-0 VICRYL [CT1] (QJX356F) SUTURE, 2-0 VICRYL [CT1] (GFU162L) SUTURE, 2-0 VICRYL [CT1] (KOE320F) [id number] 09:18 [employer],WARM AIR CCL * Used *[id number] 11:17 [employer],WARM AIR CCL * Used *[id number] [facility] PAD, ELECTROSURGICAL 09:18 * [id number] *[id number] Used SURGICAL GROUNDING ORANGE [facility] PAD, ELECTROSURGICAL 11:17 * [id number] *[id number] Used SURGICAL GROUNDING ORANGE LEAD, CAPSURE FIX NOVUS, 4076-52CM 12:30 [employer] 52CM Used 52CM *[id number] LEAD, CAPSURE FIX NOVUS, 4076-58CM 12:32 [employer] 58CM Used 58CM *[id number] MONITOR, SMART ANDROID\\ 11:17 [employer] 46789 Used IPHONE PACEMAKER, CHRISTINA ANDUJAR MRI 12:39 [employer] OEA-DDDR [id number] Used SURESCAN [id number] 11:17 [employer]. / * Used *[id number] 5817-2887 09:18 [employer]. / * Used *[id number] Equipment Model, Serial, Lot Number and Expiration Data Description Model Number Serial Number Lot Number Expiration Date LEAD, CAPSURE FIX NOVUS, 52CM 4076-52 [id number] 09-17-2019 LEAD, CAPSURE FIX NOVUS, 58CM 4076-58 [id number] 09-17-2019 PACEMAKER, CHRISTINA ANDUJAR MRI [id number] 03-21-2019 SURESCAN History: Current Medications Medication Dosage/Unit Route Frequency Last Date/Time Taken ASA Zoloft DIOVAN LIPITOR Demadex History: Allergies Allergy Reaction No Known Allergies History: Risk Factors Family History of Hypertension Dyslipidemia Previous NH Previous Heart Failure Premature CAD Yes Yes Yes No No Prior Valve Prior PCI Prior CABG Surgery Yes No No Cerebrovascular Peripheral Artery Chronic Lung On Dialysis Diabetes Disease Disease Disease No No No Yes No History: Symptoms/Diagnosis Selection Items Syncope History: Stress Tests Stress or Imaging Studies Performed No History: Other Disease Selection Items CAD HTN History: NH/CV Data Previous Valve Previous Cath Date Replacement Date 11/24/2011 11/24/2011 History: Other Current Smoker Quit Packs a Day Years Used Pack Years No 6 Years Ago 1 30 30 Labs Hgb (g/dl) Hct (%) RBC (MIL/MM3) WBC (l/cumm) Platelets (thousands) 11.60-17.00 35.00-51.00 4.00-5.90 4.00-11.00 150.00-450.00 14.0 42 5 9 153 Glucose (mg/dl) BUN (mg/dl) Creatinine (mg/dl) BUN:Creatinine (1:x) 74.00-106.00 7.00-18.00 0.50-1.30 10.00-20.00 95 16 0.8 20 Na (meq/l) K (meq/l) 136.00-145.00 3.50-5.10 139 4.3 INR (PTT:PT) 0.90-1.10 1 Medication Medication Total Dose (Bolus/Oral) Medication Total Dosage/Unit 2% XYLOCAINE 50 mL Medications (Bolus/Oral) Medication Time Given Dosage/Unit Administered By Reason 2% XYLOCAINE 01/06/2018 12:18:28 PM 50 mL Anesthesia, MANAGER INFRASTRUCTURE 50 mL 2% XYLOCAINE given in lab by Anesthesia, MANAGER INFRASTRUCTURE via Subcutaneous. Ordered by Jorge Francis. Medication (Drip) Medication Time Given Dosage/Unit Concentration/Unit Diluent (ml) Solution ANCEF 01/06/2018 11:55:34 AM 2 g 2 g ANCEF given in lab by Anesthesia, MANAGER INFRASTRUCTURE in Left Forearm via Peripheral IV. Ordered by Hilda Francis IV Solutions 01/06/2018 11:01:19 AM 0 mL (IV) 500 NaCl .9 Patient arrived on IV Solutions in Left Forearm via Peripheral IV. Pump/Drip Flow = 20 ml/hr using Na Cl .9. IV Solutions 01/06/2018 11:01:23 AM 0 mL (IV) 500 NaCl .9 Patient arrived on IV Solutions in Right Forearm via Peripheral IV. Pump/Drip Flow = 20 ml/hr using N aCl .9. VANCOMYCIN DRIP 01/06/2018 11:55:14 AM 1 g 1 g VANCOMYCIN DRIP given in lab by Anesthesia, MANAGER INFRASTRUCTURE in Left Forearm via Peripheral IV. Ordered by Jorge Avila. Initial Case Assessment Cardiovascular HR Rhythm NIBP Chest Pain 58 paced 130/67 0 Neurological State Oriented to time-place- Alert Moves all extremities person Respiration - General Respiration Rate SpO2 (%) (B/min) 15 95 Final Case Assessment Cardiovascular HR Rhythm NIBP Chest Pain 83 paced 90/58 0 Neurological State Oriented to time-place- Alert Moves all extremities person Respiration - General Respiration Rate SpO2 (%) (B/min) 12 93 Chronological Log Time Study Chronological Log 11:00:18 Patient arrived via Bed with temp pacer in place via RFV. 11:00:20 Patient Name, D.O.B, / Armband Verified By R.N. 11:00:27 Pre-op and post- op instructions given; patient acknowledges understanding of instructions. 11:00:30 Verbal Stimulation=2 Physical Stimulation=2 Airway=2 Respiration=2 TOTAL=8. (0=absent, 1=li mited, 2=present) 11:00:54 Presedation assessment performed by Welder Journeyman RN. 11:00:58 Patient has been NPO for More than 6Hrs. 11:01:00 Skin Breakdown-bilateral bruising to eyes, arms and chest noted from syncopal episode. 11:01:03 Disposable Defibrillator Pads Placed On Patient. 11:01:06 Teresa Prominences Protected 11:01:18 A # 20 IV was noted in the Forearm (left). Grade = patent 11:01:19 Patient arrived on IV Solutions in Left Forearm via Peripheral IV. Pump/Drip Flow = 20 ml/h r using NaCl .9. 11:01:22 A # 20 IV was noted in the Forearm (right). Grade = patent 11:01:23 Patient arrived on IV Solutions in Right Forearm via Peripheral IV. Pump/Drip Flow = 20 ml/ hr using NaCl .9. 11:01:25 History and physical on the chart or being dictated. 11:01:40 Bovie ground pad applied to: left hip 11:01:47 2% CHLORHEXIDINE GLUCONATE WASH AND NASAL SWIPE DONE PRIOR TO PROCEDURE. Assessment: Initial Case, HR=58 BPM, Rhythm=paced, VZDX=890/67 mmhg, Chest Pain=0 11:26:42 Neurological: State=Alert, Ox3, WITT Respiration: Resp=15 B/min, SpO2=95 % 11:27:41 Reference ECG taken 11:33:13 Table restraints applied according to hospital policy 11:33:20 Right Upper Chest Prepped Times Two. 11:35:05 Left Upper Chest Prepped Times Two. 11:39:24 Anesthesia at bedside. CARLOS Woodruff Assumes care of patient. 11:40:59 Patient draped in sterile fashion. First Sponge And Instrument Count Done by Alonso Sanders RCIS(BS). 11:43:55 Hypo's: 4, Sponges: 20, Bovie/scratch: 2 Sutures: 10, Blades: 3, Instruments: 26, Syveck Patches: 0 Verified by Maria Luisa BlackRN 11:49:28 paged 11:54:13 HR=70 bpm, UVCU=979/61 mmhg, SpO2=96 %, Resp=12 B/min 11:55:14 1 g VANCOMYCIN DRIP given in lab by Anesthesia, MANAGER INFRASTRUCTURE in Left Forearm via Peripheral IV. Ord ered by Jorge Francis. 11:55:34 2 g ANCEF given in lab by Anesthesia, MANAGER INFRASTRUCTURE in Left Forearm via Peripheral IV. Ordered by Jorge Avila. 12:15:19 MD arrived. Time Out. Correct patient, procedure, procedure equipment, site and side verified with physicia n present. Time 12:17:19 concurred by MD, individual staff and MANAGER INFRASTRUCTURE. 12:17:30 Case Start 12:18:28 50 mL 2% XYLOCAINE given in lab by Anesthesia, MANAGER INFRASTRUCTURE via Subcutaneous. Ordered by Carlos Francis. 12:19:28 Vascular access was obtained in the Subclav. Vein (Lft. 12:21:39 Vascular access was obtained in the Subclav. Vein (Lft. 12:24:04 A pocket was created at the L Upper Chest. 12:25:09 A SAFE SHEATH, FR7, 13CM FR 7 was advanced into the Subclav. Vein (Lft using the Percutaneo us technique. 12:25:53 A LEAD, CAPSURE FIX NOVUS, 58CM 58CM was inserted and positioned in the RV. 12:26:27 Lead placement verified under fluoroscopy 12:26:33 The RV lead impedance and threshold being tested. 12:28:42 The RV lead was sutured to the fascia. 12:28:58 A SAFE SHEATH, FR7, 13CM FR 7 was advanced into the Subclav. Vein (Lft using the Percutaneo us technique. 12:31:02 A LEAD, CAPSURE FIX NOVUS, 52CM 52CM was inserted and positioned in the RA. 12:31:22 Lead placement verified under fluoroscopy 12:31:24 The Atrial lead impedance and threshold being tested. 12:34:00 The Atrial lead was sutured to the fascia. 12:35:05 A PACEMAKER, ADVISA DR RONNI NAIDU OEA-DDDR was connected and placed in the pocket. 12:35:12 Pocket flushed with antibiotic solution 12:38:46 Closing the pocket. Second Sponge And Instrument Count Done by Alonso Sanders RCIS(BS). 12:38:48 Hypo's: 4, Sponges: 20, Bovie/scratch: 2 Sutures: ~SUTURE~, Blades: 3, Instruments: ~INSTRU~, Syveck Patches: 0 12:43:01 The pocket was closed. 12:43:07 Case End The Final Sponge And Instrument Count Done by Alonso Sanders RCIS(BS). 12:43:23 Hypo's: 4, Sponges: 20, Bovie/scratch: 2 Sutures: 10, Blades: 3, Instruments: 26, Syveck Patches: 0 12:44:19 Steri-strips and a sterile dressing applied to site. 12:46:48 Temp pacer removed under flouroscopy. 12:50:02 Sheath in RFV removed; pressure applied to access site. 12:50:20 No case complications noted. 12:50:21 Cine recording checked. Assessment: Final Case, HR=83 BPM, Rhythm=paced, NIBP=90/58 mmhg, Chest Pain=0 12:50:23 Neurological: State=Alert, Ox3, WITT Respiration: Resp=12 B/min, SpO2=93 % 12:55:55 Patient has to void, urinal placed. 13:08:04 Hemostasis obtained. 13:08:13 A sling was placed on the affected arm. 13:08:23 Sterile dressing applied to right groin site 13:08:52 Patient moved to bed 13:08:57 Bedside Report will be given. 13:09:28 Implant Procedure was performed. 13:09:40 A PPM Implant . (Dual) End Study - Contrast Media Used In Study Contrast Total Opened (mL) Total Used (mL) Total Wasted (mL) Unspecified 0 0 0 End Study - Maximum Contrast Load Max Contrast Load (mL) 665.6 End Study - Radiation Exposure Fluoro Time (minutes) 3.1 End Study - Sheaths Sheaths Pulled By Sheath Hold Time (min) Jaime Black 5 End Study - Patient Disposition Complications Transferred To Interventional Outcome No Critical Care Bed successful
--- NOTE | 2018-01-06 13:16 | PD.CARD ---
DUAL PPM IMPLANTATION PROCEDURE DATE: Jan 06, 2018 DUAL PPM IMPLANTATION PROCEDURE: Dual chamber permanent pacemaker implantation. INDICATIONS FOR PROCEDURE: Mr. Santiago is a 72 -year-old male is a 72 y/o with hx of aortic stenosis, completer AV block, asystole, on no negative chronotropic medication referred for pacer insertion. The risks, the nature and the benefit of the procedure were clearly stated to him . The risks include pneumothorax, cardiac perforation, stroke and even . He understood and agreed to proceed. PROCEDURE After written informed consent was obtained, the patient was transferred to the EP lab where he was prepped and draped in the usual sterile fashion. Conscious sedation was initiated and maintained throughout the procedure by the anesthesiologist. Once sedation was verified, the left infraclavicular area was with 2% Xylocaine. Using modified Seldinger technique, the left subclavian vein was cannulated on two occasions and two guidewires were advanced. Then, using a #11 blade scalpel, a 2 cm was made two fingerbreadths below the left clavicle. This incision was then taken down through the deep fascial layer using Bovie cautery and blunt dissection. Into the inferomedial direction, device pocket was dissected, then the wire was dissected into the pocket. A 2- 0 Vicryl suture was placed around the wire to prevent backbleeding. At this point, over the lateral wire, an 7-Kittitian dilator and introducer was advanced. As the dilator and wire were removed, an active fixation right ventricular pacing and sensing lead was advanced. After adequate pacing and sensing thresholds were obtained, the lead was secured in the pocket using 2-0 Ethibond suture. Then, over the remaining wire, an 7-Kittitian dilator and introducer was advanced. As the dilator and wire were removed, an active fixation right atrial pacing and sensing lead was advanced. After adequate pacing and sensing thresholds were obtained, the lead was secured into the pocket using 2-0 Ethibond suture. At that point, the pocket was copiously irrigated using antibiotic solution. This was connected to the generator and placed into the pocket. I did proceed with wound closure. The deep fascial layer was approximated using 2-0 Vicryl suture in a continuous fashion. The subcutaneous layer was approximated with 2-0 Vicryl suture in a continuous fashion. The subcuticular layer was approximated with 2-0 Vicryl suture in a continuous fashion. Dermabond adhesive was applied to the wound followed by sterile pressure dressing. There was no complication. The patient tolerated procedure. Blood loss minimal. IMPLANTED HARDWARE The permanent pacemaker is a Medtronic. Model # A2DR01 serial number [id number]. The right atrial pacing and sensing lead is a Medtronic model number 4076-52, serial number [id number]. The right ventricular pacing and sensing lead is a Medtronic model number 4076- 58, serial number [id number]. THRESHOLDS The right atrial pacing threshold in the bipolar mode was 1.5 V @ 0.4 milliseconds, lead impedance 1150 ohms and P-wave at 3.0 millivolts. The right ventricular pacing threshold in the bipolar mode was 1.0V @ 0.5 milliseconds, lead impedance 1060 ohms and R-wave at the 7.3 millivolts. SETTINGS The device was set in the DDD 60, upper limit 120 beats per minute. Hysteresis and mode switch are on. CONCLUSIONS: Successful permanent pacemaker implantation, COMMENT AND RECOMMENDATION The patient will be transferred to the telemetry unit. Jorge Francis MD Jan 06, 2018 13:16
[2018-01-06] MEDS ORDERED: SODIUM CHLORIDE 0.9% FLUSH 10 ML FLUSH IV FLUSH PRN (13:30)
[2018-01-06] MEDS ORDERED: ONDANSETRON HCL 4 MG/2 ML VIAL IV PUSH PRN (13:30)
--- NOTE | 2018-01-06 13:56 | PD.CAR.PN ---
CVT Progress Note Subjective/Hospital Course: sts data discussed with pt RISK SCORES About the STS Risk Calculator Procedure: AV Replacement Risk of Mortality: 1.755% Morbidity or Mortality: 14.125% Long Length of Stay: 4.601% Short Length of Stay: 45.089% Permanent Stroke: 1.412% Prolonged Ventilation: 8.397% DSW Infection: 0.284% Renal Failure: 3.075% Reoperation: 6.902% Objective: Vital Signs Date Time Temp Pulse Resp B/P (MAP) Pulse Ox O2 Delivery O2 Flow Rate FiO2 01/06/18 07:00 65 01/06/18 07:00 97.9 68 18 102/50 (67) 95 01/06/18 07:00 68 01/06/18 03:00 64 01/06/18 03:00 65 01/06/18 03:00 98.0 61 16 105/52 (69) 94 01/05/18 23:00 98.1 63 20 111/66 (81) 96 01/05/18 23:00 63 01/05/18 23:00 61 01/05/18 19:00 97.6 67 16 116/62 (80) 93 01/05/18 19:00 65 01/05/18 19:00 69 01/05/18 18:36 62 01/05/18 15:00 62 01/05/18 15:00 98.6 61 18 123/57 (79) 92 Labs: Laboratory Tests Test 01/06/18 05:15 White Blood Count 9.0 TH/MM3 (4.0-11.0) Red Blood Count 4.99 MIL/MM3 (4.50-5.90) Hemoglobin 14.5 GM/DL (13.0-17.0) Hematocrit 42.1 % (39.0-51.0) Mean Corpuscular Volume 84.3 FL (80.0-100.0) Mean Corpuscular Hemoglobin 29.0 PG (27.0-34.0) Mean Corpuscular Hemoglobin Concent 34.4 % (32.0-36.0) Red Cell Distribution Width 14.0 % (11.6-17.2) Platelet Count 153 TH/MM3 (150-450) Mean Platelet Volume 8.7 FL (7.0-11.0) Neutrophils (%) (Auto) 73.0 % (16.0-70.0) Lymphocytes (%) (Auto) 16.5 % (9.0-44.0) Monocytes (%) (Auto) 6.7 % (0.0-8.0) Eosinophils (%) (Auto) 2.9 % (0.0-4.0) Basophils (%) (Auto) 0.9 % (0.0-2.0) Neutrophils # (Auto) 6.6 TH/MM3 (1.8-7.7) Lymphocytes # (Auto) 1.5 TH/MM3 (1.0-4.8) Monocytes # (Auto) 0.6 TH/MM3 (0-0.9) Eosinophils # (Auto) 0.3 TH/MM3 (0-0.4) Basophils # (Auto) 0.1 TH/MM3 (0-0.2) CBC Comment DIFF FINAL Differential Comment Blood Urea Nitrogen 16 MG/DL (7-18) Creatinine 0.80 MG/DL (0.60-1.30) Random Glucose 95 MG/DL (74-106) Calcium Level 8.9 MG/DL (8.5-10.1) Sodium Level 139 MEQ/L (136-145) Potassium Level 4.3 MEQ/L (3.5-5.1) Chloride Level 107 MEQ/L (98-107) Carbon Dioxide Level 28.8 MEQ/L (21.0-32.0) Anion Gap 3 MEQ/L (5-15) Estimat Glomerular Filtration Rate 94 ML/MIN (>89) Result Diagram: 01/06/1851401/06/18514 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 (3) CAD (coronary artery disease) (4) Syncopal episodes (5) Facial contusion (6) Head injury (7) Syncope Problem Qualifiers (1) CAD (coronary artery disease): Qualified Codes: I25.119 - Atherosclerotic heart disease of [place] coronary artery with unspecified angina pectoris (2) Syncopal episodes: Qualified Codes: R55 - Syncope and collapse (3) Facial contusion: Qualified Codes: S00.83XA - Contusion of other part of head, initial encounter (4) Head injury: Qualified Codes: S09.90XA - Unspecified injury of head, initial encounter (5) Syncope: Qualified Codes: R55 - Syncope and collapse Diana Mcgarry Jan 06, 2018 13:56
--- NOTE | 2018-01-06 14:12 | RADRPT ---
EXAM DATE/TIME: 01/06/2018 13:32 [facility] COMPARISON: CHEST SINGLE AP, January 01, 2018, 15:36. INDICATIONS : Post pacemaker. MEDICAL HISTORY : Cardiovascular disease. SURGICAL HISTORY : heart valve replacement ENCOUNTER: Subsequent ACUITY: 1 day PAIN SCORE: 0/10 LOCATION: Bilateral chest FINDINGS: A single portable frontal view the chest shows interval placement of a left-sided pacing device. No p neumothorax. Leads terminate in the region of the right atrium and right ventricle respectively. Medi an sternotomy wires noted. Mild cardia megaly. Mild engorgement of the pulmonary vessels. No infiltra karena or effusions. CONCLUSION: 1. Left-sided pacer in good position without pneumothorax. 2. Mild cardiomegaly with mild pulmonary vascular engorgement. Mac De La Torre Jr., MD on January 06, 2018 at 14:09 Board Certified Radiologist. This report was verified electronically.
--- NOTE | 2018-01-06 15:51 | MB ---
cc: ARMAAN ROMEO MD DATE OF CONSULTATION 01/06/2018 DATE OF 1945 HISTORY OF PRESENT ILLNESS This is a 72-year-old patient visiting from the [place], [place] area who comes down here a couple months out of the year. He apparently was at his home going from the kitchen to the dining room and then had an apparent syncopal episode. The patient fell face down and sustained some bruising to both of his eyes with some laceration over the right eyebrow area, also some pain in his right chest area. His immediately called 911. Per EVAC the patient had another episode where they thought he might be having a seizure en route and he was also complaining of some substernal chest discomfort. The patient was admitted with a syncopal episode. They repaired the laceration over his right eye with Steri-Strips. He was initially admitted for observation During the course of his admission he had a full work-up including a 2-D echocardiogram and was also found to have some third-degree heart block. His echocardiogram showed an ejection fraction of 50-55%, mild left ventricular hypertrophy, aortic root of 4.4 cm, trace mitral valve regurgitation, bioprosthetic aortic valve with severe aortic stenosis, aortic valve area of 0.83. During the course of the admission he also had a temporary pacer placed into the right groin and was scheduled for a permanent pacemaker today by Dr. Francis. We were consulted as a second opinion for evaluation of transcatheter aortic valve replacement. PAST MEDICAL HISTORY 1. Hypertension. 2. Hyperlipidemia. 3. History of aortic stenosis. 4. History of ascending aortic aneurysm, 4.5. 5. Atrial fibrillation. 6. Obstructive sleep apnea on CPAP machine. 7. Congenital multiple exostoses. PAST SURGICAL HISTORY 1. Aortic valve replacement with a pig valve in 2011 at [facility]. 2. Coronary angiogram. 3. Left knee replacement. ALLERGIES He has no known allergies. FAMILY HISTORY Both of his parents had heart problems. SOCIAL HISTORY The patient is , smoked for about 36 years, quit at age 66, social drinker. He still drives. He is active. He hunts, walks in the [place], does all the maintenance at his home. REVIEW OF SYSTEMS GENERAL: In general no night sweats, fevers, heat or cold intolerance. SKIN: No psoriasis, itching or hives. HEENT: No blurred vision or hearing loss. RESPIRATORY: No cough or shortness of breath. CARDIOVASCULAR: As above in the HPI. GASTROINTESTINAL: No diarrhea or vomiting. GENITOURINARY: No burning, frequency, urgency. HOSPICE LIAISON: History of syncopal episodes. He also had some syncopal episodes and falls prior to his initial aortic valve replacement in 2012. ENDOCRINE: No diabetes or hypothyroidism. PHYSICAL EXAMINATION GENERAL: A very pleasant male who appears his stated age. VITAL SIGNS: Blood pressure 102/50, heart rate 68, temperature max 97.9. O2 sat 95 on room air. GENERAL: Patient is awake, alert, in no acute distress. HEENT: Head is normocephalic. He has some ecchymosis around both eyes. He has a healing laceration over the right eyebrow, small abrasion to the left eyebrow. Pupils are equal and reactive. Oral mucosa is pink and moist, noninjected. NECK: Supple. No JVD. HEART: Heart sounds S1, S2, irregular rate and rhythm. He has a backup pacemaker at a ventricular rate of 40. CHEST: He has some bruising to the right lateral chest area, also to the right upper arm. No crepitus noted to the chest. LUNGS: Clear to auscultation. No wheezes, rales or rhonchi. ABDOMEN: Soft, obese, nontender. EXTREMITIES: No cyanosis, clubbing or edema. He does have a temporary pacer in the right groin. Good distal pulses. LABORATORY Hemoglobin 14, hematocrit 42, white cell count 9, platelet count 153. Sodium 139, potassium 4.3, BUN 16, creatinine 0.8. INR 1.0. Urinalysis is unremarkable. Albumin 3.6. Troponin 0.06. IMAGING The patient multiple x-rays due to his fall. He had some tissue swelling over the scalp and left frontal region on his CT maxillofacial. Carotid ultrasound within normal limits. No significant plaquing or narrowing. Aorta CTA negative for thoracic or abdominal aortic aneurysm or dissection. He has a 3 mm nodule in the right upper lobe, needs to be followed up in [address] showed no acute skull fracture. Cervical spine showed some degenerative spondylosis throughout the cervical spine, no acute fracture. CARDIAC CATHETERIZATION Severe bioprosthetic aortic stenosis by echocardiogram, third-degree heart block. Right-sided heart pressures showed an RA pressure of 7, RV pressure 27/6, PA pressure 28/39 with a mean PA of 18, wedge pressure 13. Cardiac output 7.4, index 3.4. The left main had ostial lesion of 30%. He also had some 40% in the midportion of the LAD. IMPRESSION This is a 72-year-old patient with a history of bioprosthetic aortic valve replacement in 2011 with echo showing severe bioprosthetic aortic stenosis. Coronary cath showing some nonobstructive coronary disease. The patient is relatively active. Frailty score is pending. His STS data will be documented in the electronic record. The patient has been evaluated by our partner, Dr. Rose Enamorado. The patient would benefit from transcatheter aortic valve replacement, valve in valve. Recommend once cleared by cardiology after his pacemaker placement, possible discharge home and to return as an outpatient for surgery. Dictated by: CHRIS Aguirre Armaan GONZALEZ /1:38 PM /3:30 PM CAROLE
[2018-01-06] MEDS: ceFAZolin 2 GM PREMIX 50 ML IV SCH (17:46)
--- NOTE | 2018-01-06 22:15 | PD.CARD.PN ---
Subjective Subjective Remarks Patient was seen earlier today, late entry note Previous multiple episodes of 3rd degree heart block One episode of syncope TVP placed at the time of cardiac catheterization Objective Medications Current Medications Medications (Trade) Dose Ordered Sig/Jeanmarie Route Start Time Stop Time Status Last Admin (NS Flush) 2 ml UNSCH PRN IV FLUSH 01/01/18 17:45 (NS Flush) 2 ml BID IV FLUSH 01/01/18 21:00 01/06/18 08:11 (Narcan Inj) 0.4 mg UNSCH PRN IV PUSH 01/01/18 17:45 (Aspirin Chew) 81 mg DAILY CHEW 01/02/18 09:00 01/06/18 08:08 (Zoloft) 100 mg DAILY PO 01/02/18 09:00 01/06/18 08:08 (Diovan) 320 mg DAILY PO 01/02/18 09:00 01/04/18 08:54 (Lipitor) 40 mg DAILY PO 01/02/18 09:00 01/06/18 08:08 (Demadex) 20 mg DAILY PO 01/02/18 09:00 01/06/18 08:09 (Tylenol) 650 mg Q4H PRN PO 01/03/18 03:45 01/04/18 08:56 (Percocet 5-325 Mg) 1 tab Q4H PRN PO 01/05/18 11:00 (Percocet 5-325 Mg) 2 tab Q4H PRN PO 01/05/18 11:00 01/06/18 21:05 (Atropine Inj) 0.5 mg UNSCH PRN IV PUSH 01/05/18 11:00 (Restoril) 7.5 mg HS PRN PO 01/05/18 21:15 01/05/18 22:16 Lactated Ringer's 1,000 ml @ 30 mls/hr Q24H PRN IV 01/06/18 07:00 01/09/18 06:59 Sodium Chloride 500 ml @ 30 mls/hr [id number] PRN IV 01/06/18 07:00 01/09/18 06:59 (Lopressor) 25 mg TREASURY ASSISTANT PRN PO 01/06/18 07:00 01/09/18 06:59 (Betadine 5% Antisepsis Kit) 1 applic TREASURY ASSISTANT PRN EACH NARE 01/06/18 07:00 01/09/18 06:59 01/06/18 06:00 (Chlorhexidine 2% Cloth) 3 pack TREASURY ASSISTANT PRN TOPICAL 01/06/18 07:00 01/09/18 06:59 01/06/18 07:32 (Flexeril) 5 mg Q8H PRN PO 01/06/18 13:00 (Pill Splitter) 1 ea UNSCH PRN OTHER 01/06/18 12:15 Cefazolin Sodium/ Dextrose 50 ml @ 100 mls/hr Q8H IV 01/06/18 17:00 01/07/18 09:29 01/06/18 17:46 (Zofran Inj) 4 mg Q4H PRN IV PUSH 01/06/18 13:30 (NS Flush) 2 ml BID IV FLUSH 01/06/18 21:00 (NS Flush) 2 ml UNSCH PRN IV FLUSH 01/06/18 13:30 Vital Signs / I&O Vital Signs Date Time Temp Pulse Resp B/P (MAP) Pulse Ox O2 Delivery O2 Flow Rate FiO2 01/06/18 16:19 98.1 70 16 103/52 (69) 95 01/06/18 15:19 66 16 104/58 (73) 97 01/06/18 15:00 70 01/06/18 15:00 98.6 66 16 104/58 (73) 97 01/06/18 14:19 71 16 109/62 (78) 97 01/06/18 13:19 98.6 75 14 111/64 (80) 95 01/06/18 13:15 98.6 75 14 111/64 (80) 95 01/06/18 07:00 65 01/06/18 07:00 97.9 68 18 102/50 (67) 95 01/06/18 07:00 68 01/06/18 03:00 64 01/06/18 03:00 65 01/06/18 03:00 98.0 61 16 105/52 (69) 94 01/05/18 23:00 98.1 63 20 111/66 (81) 96 01/05/18 23:00 63 01/05/18 23:00 61 I/O 01/05/18 01/05/18 01/05/18 01/06/18 01/06/18 01/06/18 07:00 15:00 23:00 07:00 15:00 23:00 Intake Total 240 ml 1000 ml 480 ml 270 ml Output Total 725 ml 700 ml 650 ml 1800 ml Balance -485 ml 300 ml -170 ml -1530 ml Intake Oral 240 ml 0 ml 480 ml 120 ml IV Total 1000 ml 150 ml Output Urine Total 725 ml 700 ml 650 ml 1800 ml # Voids 3 # Bowel Movements 0 0 0 Physical Exam GENERAL: NAD, AAOx3 SKIN: Warm and dry. HEAD: Bilateral ecchymosis around eyes EYES: Pupils equal and round. No scleral icterus. No injection or drainage. ENT: No nasal bleeding or discharge. Mucous membranes pink and moist. NECK: Trachea midline. No JVD. CARDIOVASCULAR: RRR, 3/6 crescendo-decrescendo to the RSB RESPIRATORY: No accessory muscle use. Clear to auscultation. Breath sounds equal bilaterally. GASTROINTESTINAL: Abdomen soft, non-tender, nondistended. Hepatic and splenic margins not palpable. MUSCULOSKELETAL: Extremities without clubbing, cyanosis, or edema. No obvious deformities. NEUROLOGICAL: Awake and alert. No obvious cranial nerve deficits. Motor grossly within normal limits. Five out of 5 muscle strength in the arms and legs. Normal speech. PSYCHIATRIC: Appropriate mood and affect; insight and judgment normal. Laboratory Laboratory Tests Test 01/06/18 05:15 White Blood Count 9.0 TH/MM3 Red Blood Count 4.99 MIL/MM3 Hemoglobin 14.5 GM/DL Hematocrit 42.1 % Mean Corpuscular Volume 84.3 FL Mean Corpuscular Hemoglobin 29.0 PG Mean Corpuscular Hemoglobin Concent 34.4 % Red Cell Distribution Width 14.0 % Platelet Count 153 TH/MM3 Mean Platelet Volume 8.7 FL Neutrophils (%) (Auto) 73.0 % Lymphocytes (%) (Auto) 16.5 % Monocytes (%) (Auto) 6.7 % Eosinophils (%) (Auto) 2.9 % Basophils (%) (Auto) 0.9 % Neutrophils # (Auto) 6.6 TH/MM3 Lymphocytes # (Auto) 1.5 TH/MM3 Monocytes # (Auto) 0.6 TH/MM3 Eosinophils # (Auto) 0.3 TH/MM3 Basophils # (Auto) 0.1 TH/MM3 CBC Comment DIFF FINAL Differential Comment Blood Urea Nitrogen 16 MG/DL Creatinine 0.80 MG/DL Random Glucose 95 MG/DL Calcium Level 8.9 MG/DL Sodium Level 139 MEQ/L Potassium Level 4.3 MEQ/L Chloride Level 107 MEQ/L Carbon Dioxide Level 28.8 MEQ/L Anion Gap 3 MEQ/L Estimat Glomerular Filtration Rate 94 ML/MIN Imaging Last 24 hours Impressions Chest X-Ray 01/06/18 0000 Signed Impressions: Service Date/Time: Saturday, January 06, 2018 13:32 - CONCLUSION: 1. Left-sided pacer in good position without pneumothorax. 2. Mild cardiomegaly with mild pulmonary vascular engorgement. Mac De La Torre Jr., MD Assessment and Plan Problem List: (1) Prosthetic aortic valve stenosis ICD Codes: I35.0 - Nonrheumatic aortic (valve) stenosis Status: Acute (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 ICD Codes: I38 - Endocarditis, valve unspecified; I50.30 - Unspecified diastolic (congestive) heart failure Status: Chronic (3) CAD (coronary artery disease) ICD Codes: I25.10 - Atherosclerotic heart disease of [place] coronary artery without angina pectoris Status: Chronic (4) Syncopal episodes ICD Codes: R55 - Syncope and collapse (5) Facial contusion ICD Codes: S00.83XA - Contusion of other part of head, initial encounter Status: Acute (6) Head injury ICD Codes: S09.90XA - Unspecified injury of head, initial encounter Status: Acute (7) Syncope ICD Codes: R55 - Syncope and collapse Status: Acute Assessment and Plan 1) Severe of previous bioprosthetic valve (Mosaic 25) ALEN 0.83, mean grad 45 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 Casiano Agree with need to place PPM and replacing the valve as [place] get [place] fix 7) Plan for discharge and follow up for consideration of TAVR Problem Qualifiers (1) CAD (coronary artery disease): Qualified Codes: I25.119 - Atherosclerotic heart disease of [place] coronary artery with unspecified angina pectoris (2) Syncopal episodes: Qualified Codes: R55 - Syncope and collapse (3) Facial contusion: Qualified Codes: S00.83XA - Contusion of other part of head, initial encounter (4) Head injury: Qualified Codes: S09.90XA - Unspecified injury of head, initial encounter (5) Syncope: Qualified Codes: R55 - Syncope and collapse Humble Rojas DO Jan 06, 2018 22:15
[2018-01-06] MEDS: TEMAZEPAM 7.5 MG CAP PO PRN (23:18)
[2018-01-07] VITALS (17 sets, daily range): BP systolic 90–112; BP diastolic 50–65; PULSE 60–96; RESP 16–20; TEMP 97.5–99.9; O2SAT 93–99
[2018-01-07] MEDS: ceFAZolin 2 GM PREMIX 50 ML IV SCH ×2 (01:00→17:52)
[2018-01-07] MEDS: oxyCODONE/ACETAMINOPHEN 5 MG/325 MG TAB PO PRN ×4 (03:55→14:50)
[2018-01-07 04:29] LABS: AUTOMATED NEUTROPHIL # 5.9 TH/MM3 (1.8-7.7); BASOPHIL # 0.1 TH/MM3 (0-0.2); BASOPHIL % 0.7 % (0.0-2.0); EOSINOPHIL # 0.2 TH/MM3 (0-0.4); EOSINOPHIL % 2.9 % (0.0-4.0); HEMATOCRIT 41.1 % (39.0-51.0); HEMOGLOBIN 13.8 GM/DL (13.0-17.0); LYMPH % 16.4 % (9.0-44.0); LYMPHOCYTE # 1.4 TH/MM3 (1.0-4.8); MEAN CELL VOLUME 84.6 FL (80.0-100.0); MEAN CORPUSCULAR HEMOGLOBIN 28.5 PG (27.0-34.0); MEAN CORPUSCULAR HGB CONC 33.7 % (32.0-36.0); MEAN PLATELET VOLUME 9.3 FL (7.0-11.0); MONOCYTE # 0.9 TH/MM3 (0-0.9); PLATELET COUNT 144 TH/MM3 (150-450); RED BLOOD COUNT 4.86 MIL/MM3 (4.50-5.90); RED CELL DISTRIBUTION WIDTH 13.8 % (11.6-17.2); WHITE BLOOD COUNT 8.5 TH/MM3 (4.0-11.0)
[2018-01-07 04:52] LABS: BICARBONATE 26.9 MEQ/L (21.0-32.0); CALCIUM 8.5 MG/DL (8.5-10.1); CREATININE 0.74 MG/DL (0.60-1.30)
--- NOTE | 2018-01-07 08:02 | HHI.PR ---
Subjective Remarks Permanent pacemaker placed yesterday. He feels better today. Has some chest pain on the left side. Nonradiating, no palpitations or lightheadedness. Heart rate is controlled. No nausea or vomiting no diarrhea or constipation. Objective Vitals Vital Signs Date Time Temp Pulse Resp B/P (MAP) Pulse Ox O2 Delivery O2 Flow Rate FiO2 01/07/18 07:35 16 01/07/18 03:00 99.1 71 16 110/62 (78) 97 01/07/18 03:00 67 01/06/18 23:00 99.5 77 16 111/57 (75) 95 01/06/18 23:00 75 01/06/18 19:00 99.2 81 20 124/71 (88) 95 01/06/18 19:00 75 01/06/18 16:19 98.1 70 16 103/52 (69) 95 01/06/18 15:19 66 16 104/58 (73) 97 01/06/18 15:00 70 01/06/18 15:00 98.6 66 16 104/58 (73) 97 01/06/18 14:19 71 16 109/62 (78) 97 01/06/18 13:19 98.6 75 14 111/64 (80) 95 01/06/18 13:15 98.6 75 14 111/64 (80) 95 I/O 01/06/18 01/06/18 01/06/18 01/07/18 01/07/18 01/07/18 07:00 15:00 23:00 07:00 15:00 23:00 Intake Total 480 ml 270 ml 700 ml Output Total 650 ml 1800 ml 100 ml Balance -170 ml -1530 ml 600 ml Intake Oral 480 ml 120 ml 600 ml IV Total 150 ml 100 ml Output Urine Total 650 ml 1800 ml 100 ml # Voids 1 # Bowel Movements 0 1 Result Diagram: 01/07/18 0335 01/07/18 0335 Imaging Last Impressions Chest X-Ray 01/06/18 0000 Signed Impressions: Service Date/Time: Saturday, January 06, 2018 13:32 - CONCLUSION: 1. Left-sided pacer in good position without pneumothorax. 2. Mild cardiomegaly with mild pulmonary vascular engorgement. Mac De La Torre Jr., MD Head CT 2/8/18 1511 Signed Impressions: Service Date/Time: December 15:44 - CONCLUSION: 1. No acute skull fracture identified. No acute cranial abnormality identified. 2. Soft tissue swelling within the left scalp as above. Clifford Britton MD Cervical Spine CT 01/01/18 151 Signed Impressions: Service Date/Time: December 15:44 - CONCLUSION: 1. Degenerative spondylosis throughout the cervical spine. No acute fracture identified. Individual levels are discussed in detail above. Clifford Britton MD Maxillofacial CT 01/01/18 0000 Signed Impressions: Service Date/Time: December 15:44 - CONCLUSION: 1. No acute facial fracture identified. 2. Large area of soft tissue swelling with small hematoma in the scalp along the left frontal region. Clifford Britton MD Carotid Artery Ultrasound 01/01/18 0000 Signed Impressions: Service Date/Time: December 18:06 - CONCLUSION: Within normal limits. No significant plaque or narrowing. Kendall Carolina MD Aorta CTA 01/01/18 0000 Signed Impressions: Service Date/Time: December 22:38 - CONCLUSION: 1. Negative for thoracic and abdominal aortic aneurysm or dissection. 2. 3 mm nodule right upper lobe. Mucoid material in the right mainstem bronchus. Severe coronary calcifications. Richard Schrader MD Objective Remarks GENERAL: This is a well-nourished, well-developed patient, in no apparent distress. CARDIOVASCULAR: Regular rate and regular rhythm without murmurs, gallops, or rubs. RESPIRATORY: Clear to auscultation. Breath sounds equal bilaterally. No wheezes , rales, or rhonchi. GASTROINTESTINAL: Abdomen soft, non-tender, nondistended. Normal, active bowel sounds MUSCULOSKELETAL: Extremities without clubbing, cyanosis, or edema. NEURO: Alert & Oriented x4 to person, place, time, situation. 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 Also had a temporary PM placed during RHC/C Follow on telemetry Cardiology following Cardiothoracic surgery following S/p PPM by Dr Francis 01/06/18 Due to frailty, and redo of open heart, consideration of TAVR, to be evaluated TAVR would be [id number], previous Mosaic 25 so Mary/Corevalve 23 Plan for discharge and follow up for consideration of TAVR Trauma Facial contusions No fractures of the face Right side pain and bruising evaluated with an x-ray Chest Pain Resolved Monitor for recurrence Cardiology following Heart catheterization as above Hypertension Continue baseline treatment Follow blood pressures Adjust treatments as needed Hyperlipidemia Continue present treatment Follow as an outpatient ROWAN Continue CPAP DVT prophylaxis SCDs given recent trauma Discharge Planning s/p heart catheterization CT surgery consulted plan to f/u as OP. S/p PPM by Dr Francis 01/06/18 Due to frailty, and redo of open heart, consideration of TAVR, to be evaluated TAVR would be [id number], previous Mosaic 25 so Mary/Corevalve 23 Plan for discharge and follow up for consideration of TAVR Transfer to Latasha Guy MD Jan 07, 2018 08:02
--- NOTE | 2018-01-07 08:11 | HHI.DS ---
Discharge Summary Admission Date Jan 02, 2018 at 21:29 Discharge Date: Jan 08, 2018 Admitting Diagnosis syncope; chest pain; minor head injury; hx of AVR 2008 (1) CAD (coronary artery disease) ICD Code: I25.10 - Atherosclerotic heart disease of [place] coronary artery without angina pectoris Status: Chronic (2) Syncopal episodes ICD Code: R55 - Syncope and collapse (3) Diastolic CHF due to valvular disease ICD Code: I38 - Endocarditis, valve unspecified; I50.30 - Unspecified diastolic (congestive) heart failure Status: Chronic (4) Prosthetic aortic valve stenosis ICD Code: I35.0 - Nonrheumatic aortic (valve) stenosis Status: Acute (5) Symptomatic bradycardia ICD Code: R00.1 - Bradycardia, unspecified Procedures Permanent pacemaker placement 01/06/[address] Tito FERNANDEZ Brief History - From Admission passed out while sitting with around 1130a.m in kitchen, flat on face, had tunnel vision , feeling air coming ears out had lots of blood on floor 911 called had syncope again while EMS was there at home hx of severe aortic stenosis- was replaced in 2011- but was told need replacement now also c/o chest pain to back reports hx of 4.5cm ascending thoracic aneurysm awaiting on surgical intevention BP stat done- 157/74 at left arm, 149/79 at right arm stool has been more black lately only on 81mg asa at home now - 2 a day chest pain only happened at hospital , not at home worsening shortness of breath in past few months with increasing leg swelling CBC/BMP: 01/07/18 0335 01/07/18 0335 Significant Findings Laboratory Tests Test 01/05/18 05:25 01/06/18 05:15 01/07/18 03:35 Blood Urea Nitrogen 19 MG/DL (7-18) 21 MG/DL (7-18) Neutrophils (%) (Auto) 73.0 % (16.0-70.0) Anion Gap 3 MEQ/L (5-15) Platelet Count 144 TH/MM3 (150-450) Monocytes (%) (Auto) 11.0 % (0.0-8.0) Imaging Last Impressions Chest CTA 01/07/18 0000 Signed Impressions: Service Date/Time: Sunday, January 07, 2018 12:22 - CONCLUSION: 1. CTA as described above. Special note is made of a linear filling defect involving the right portal vein which either relates to unopacified blood or eccentric mural thrombus. Hepatic Doppler evaluation could be utilized to further evaluate. 2. Significant coronary artery atherosclerotic calcifications. 3. Tiny right pleural effusion with bibasilar atelectasis. 4. Left-sided pacing device with air adjacent to the pacing pack presumably from recent implantation. Mac De La Torre Jr., MD Abdomen Ultrasound 01/07/18 0000 Signed Impressions: Service Date/Time: Sunday, January 07, 2018 18:06 - CONCLUSION: Unremarkable study. Shahla Farah MD Chest X-Ray 01/06/18 0000 Signed Impressions: Service Date/Time: Saturday, January 06, 2018 13:32 - CONCLUSION: 1. Left-sided pacer in good position without pneumothorax. 2. Mild cardiomegaly with mild pulmonary vascular engorgement. Mac De La Torre Jr., MD Head CT 01/01/18 151 Signed Impressions: Service Date/Time: December 15:44 - CONCLUSION: 1. No acute skull fracture identified. No acute cranial abnormality identified. 2. Soft tissue swelling within the left scalp as above. Clifford Britton MD Cervical Spine CT 01/01/18 151 Signed Impressions: Service Date/Time: December 15:44 - CONCLUSION: 1. Degenerative spondylosis throughout the cervical spine. No acute fracture identified. Individual levels are discussed in detail above. Clifford Britton MD Maxillofacial CT 01/01/18 0000 Signed Impressions: Service Date/Time: December 15:44 - CONCLUSION: 1. No acute facial fracture identified. 2. Large area of soft tissue swelling with small hematoma in the scalp along the left frontal region. Clifford Britton MD Carotid Artery Ultrasound 01/01/18 0000 Signed Impressions: Service Date/Time: December 18:06 - CONCLUSION: Within normal limits. No significant plaque or narrowing. Kendall Carolina MD Aorta CTA 01/01/18 0000 Signed Impressions: Service Date/Time: December 22:38 - CONCLUSION: 1. Negative for thoracic and abdominal aortic aneurysm or dissection. 2. 3 mm nodule right upper lobe. Mucoid material in the right mainstem bronchus. Severe coronary calcifications. Richard Schrader MD PE at Discharge GENERAL: This is a well-nourished, well-developed patient, in no apparent distress. CARDIOVASCULAR: Regular rate and regular rhythm without murmurs, gallops, or rubs. RESPIRATORY: Clear to auscultation. Breath sounds equal bilaterally. No wheezes , rales, or rhonchi. GASTROINTESTINAL: Abdomen soft, non-tender, nondistended. Normal, active bowel sounds MUSCULOSKELETAL: Extremities without clubbing, cyanosis, or edema. NEURO: Alert & Oriented x4 to person, place, time, situation. 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 Also had a temporary PM placed during RHC/C Follow on telemetry Cardiology following Cardiothoracic surgery following S/p PPM by Dr Francis 01/06/18 Due to frailty, and redo of open heart, consideration of TAVR, to be evaluated TAVR would be [id number], previous Mosaic 25 so Mary/Corevalve 23 Plan for discharge and follow up for consideration of TAVR Trauma Facial contusions No fractures of the face Right side pain and bruising evaluated with an x-ray Chest Pain Resolved Monitor for recurrence Cardiology following Heart catheterization as above Hypertension Continue baseline treatment Follow blood pressures Adjust treatments as needed Hyperlipidemia Continue present treatment Follow as an outpatient ROWAN Continue CPAP DVT prophylaxis SCDs given recent trauma Discharge Planning s/p heart catheterization CT surgery consulted plan to f/u as OP. S/p PPM by Dr Francis 01/06/18 Due to frailty, and redo of open heart, consideration of TAVR, to be evaluated TAVR would be [id number], previous Mosaic 25 so Mary/Corevalve 23 Plan for discharge and follow up for consideration of TAVR Had chest CTA, reviewed. Questionable portal vein thrombosis. Discussed with Dr. Santos, radiology recommended Doppler ultrasound reviewed . Had ultrasound Doppler and normal study. Patient was discharged in stable condition. To follow-up as outpatient with PCP and consultants. Pt Condition on Discharge: Stable Discharge Disposition: Disch w/ Home Health Serv Discharge Time: > 30 minutes Discharge Instructions DIET: Follow Instructions for: Heart Healthy Diet, Diabetic Diet Activities you can perform: Regular-No Restrictions Follow up Referrals: Cardiology - 1 Week Cardiology - 1 Week with Kortney Sherman MD PCP Follow-up - 2-3 Days New Medications: Oxycodone-Acetaminophen (Oxycodone-Acetaminophen) 7.5-325 mg Tab 1-2 TAB PO Q6HR PRN for PAIN, #30 TAB 0 Refills Cyclobenzaprine (Flexeril) 10 Mg Tab 5 MG PO Q8H PRN for muscle spasm , #20 TAB Torsemide (Demadex) 20 Mg Tab 20 MG PO DAILY for Blood Pressure Management, #30 TAB Continued Medications: Aspirin (Aspirin) 81 Mg Chew 81 MG CHEW DAILY, TAB 0 Refills Multiple Vitamins W/ Minerals (Centrum) 1 Chew 1 TAB CHEW DAILY for Nutritional Supplement, TAB 0 Refills Rosuvastatin (Rosuvastatin) 20 Mg Tab 20 MG PO DAILY for Cholesterol Management, TAB 0 Refills Sertraline (Sertraline) 100 Mg Tab 100 MG PO DAILY, TAB 0 Refills Valsartan (Valsartan) 320 Mg Tab 320 MG PO DAILY, TAB 0 Refills Discontinued Medications: Furosemide (Furosemide) 20 Mg Tab 20 MG PO DAILY, TAB 0 Refills Latasha Ibrahim MD Jan 07, 2018 08:11
[2018-01-07] MEDS ORDERED: TORS1TAB12 PO (08:14)
[2018-01-07] MEDS ORDERED: OXYC1TAB35 PO (08:14)
[2018-01-07] MEDS ORDERED: CYCL10TA PO (08:14)
--- NOTE | 2018-01-07 10:13 | RSPPFT ---
DATE OF PROCEDURE: 01/06/18 COMMENTS: Spirometry with FVC of 2.4 predicted 3.3, FEV1 of 1.5 predicted 2.6, FEV1/FVC ratio 62% predicted 78%. IMPRESSION: On the basis of the above, patient has an obstructive lung defect. Post-bronchodilator values have not been measured.
--- NOTE | 2018-01-07 10:45 | PD.FRAIL ---
Date: Jan 07, 2018 Height: 170.18 cm Weight: 102 kg BMI: 35.2 Assessment Performed: Inpatient Days in Hospital at Exam: 3 Albumin 01/05/18 05:25: Albumin 3.6 Pass/Fail: Pass Roy Activities Daily Living Roy ADL Score: Bathing(bathes self/help in single area): Norman (1), Dressing(gets/puts clothes on self): [place] (1), Toileting(goes without help): [place] ( 1), [facility] Norman (1), Continence( complete self-control): Norman (1), Feeding(self, prep by another allowed) : Norman (1), Total: 6 Pass/Fail: Pass Major Case Detective Strength Grasp 1: 28 Grasp 2: 26 Grasp 3: 26 Average: 26.7 Pass/Fail: Fail 15-Foot Walk 15-Foot Walk (seconds): 8 Pass/Fail: Fail Total Frailty Total Frailty (out of 4): 2 Frailty Index Score Reference Major Case Detective Strength: BMI: <=24 Cutoff for cake press operator strength(Kg): <=29 BMI: 24.1-28 Cutoff for cake press operator strength(Kg): <=30 BMI: >28 Cutoff for cake press operator strength(Kg): <=32 15-Foot Walk: Height: <=173 cm 15-Foot Walk Cutoff Time: >=7 seconds Height: >173 cm 15-Foot Walk Cutoff Time: >=6 seconds Stepan Jerry RN Jan 07, 2018 10:45
[2018-01-07] MEDS: SODIUM CHLORIDE 0.9% FLUSH 10 ML FLUSH IV FLUSH SCH ×4 (11:23→21:00)
[2018-01-07] MEDS: SERTRALINE HCL 100 MG TAB PO SCH (11:24)
[2018-01-07] MEDS: ATORVASTATIN 40 MG TAB PO SCH (11:24)
[2018-01-07] MEDS: VALSARTAN 160 MG TAB PO SCH (11:24)
[2018-01-07] MEDS: ASPIRIN 81 MG CHEW TAB CHEW SCH (11:25)
[2018-01-07] MEDS ORDERED: IOHEXOL 350 MG/ML 10 ML VIAL (for RAD DIAG) IVCONTRAST ONE (12:38)
[2018-01-07] MEDS: TORSEMIDE 20 MG TAB PO SCH (13:36)
--- NOTE | 2018-01-07 14:04 | PD.CARD.PN ---
Subjective Subjective Remarks PPM placed yesterday, doing well overall Objective Medications Current Medications Medications (Trade) Dose Ordered Sig/Jeanmarie Route Start Time Stop Time Status Last Admin (NS Flush) 2 ml UNSCH PRN IV FLUSH 01/01/18 17:45 (NS Flush) 2 ml BID IV FLUSH 01/01/18 21:00 01/07/18 11:23 (Narcan Inj) 0.4 mg UNSCH PRN IV PUSH 01/01/18 17:45 (Aspirin Chew) 81 mg DAILY CHEW 01/02/18 09:00 01/07/18 11:25 (Zoloft) 100 mg DAILY PO 01/02/18 09:00 01/07/18 11:24 (Diovan) 320 mg DAILY PO 01/02/18 09:00 01/07/18 11:24 (Lipitor) 40 mg DAILY PO 01/02/18 09:00 01/07/18 11:24 (Demadex) 20 mg DAILY PO 01/02/18 09:00 01/07/18 13:36 (Tylenol) 650 mg Q4H PRN PO 01/03/18 03:45 01/04/18 08:56 (Percocet 5-325 Mg) 1 tab Q4H PRN PO 01/05/18 11:00 01/07/18 08:23 (Percocet 5-325 Mg) 2 tab Q4H PRN PO 01/05/18 11:00 01/07/18 03:55 (Atropine Inj) 0.5 mg UNSCH PRN IV PUSH 01/05/18 11:00 (Restoril) 7.5 mg HS PRN PO 01/05/18 21:15 01/06/18 23:18 Lactated Ringer's 1,000 ml @ 30 mls/hr Q24H PRN IV 01/06/18 07:00 01/09/18 06:59 Sodium Chloride 500 ml @ 30 mls/hr [id number] PRN IV 01/06/18 07:00 01/09/18 06:59 (Lopressor) 25 mg DREDGE OPERATOR PRN PO 01/06/18 07:00 01/09/18 06:59 (Betadine 5% Antisepsis Kit) 1 applic DREDGE OPERATOR PRN EACH NARE 01/06/18 07:00 2/16/18 06:59 01/06/18 06:00 (Chlorhexidine 2% Cloth) 3 pack DREDGE OPERATOR PRN TOPICAL 01/06/18 07:00 01/09/18 06:59 01/06/18 07:32 (Flexeril) 5 mg Q8H PRN PO 01/06/18 13:00 (Pill Splitter) 1 ea UNSCH PRN OTHER 01/06/18 12:15 (Zofran Inj) 4 mg Q4H PRN IV PUSH 01/06/18 13:30 (NS Flush) 2 ml BID IV FLUSH 01/06/18 21:00 01/07/18 11:24 (NS Flush) 2 ml UNSCH PRN IV FLUSH 01/06/18 13:30 Vital Signs / I&O Vital Signs Date Time Temp Pulse Resp B/P (MAP) Pulse Ox O2 Delivery O2 Flow Rate FiO2 01/07/18 11:00 97.7 73 20 94/53 (67) 96 01/07/18 08:00 97 Room Air 01/07/18 07:35 16 01/07/18 07:00 60 01/07/18 07:00 99 2.00 01/07/18 07:00 97.5 60 16 112/59 (76) 99 01/07/18 03:00 99.1 71 16 110/62 (78) 97 01/07/18 03:00 67 01/06/18 23:00 99.5 77 16 111/57 (75) 95 01/06/18 23:00 75 01/06/18 19:00 99.2 81 20 124/71 (88) 95 01/06/18 19:00 75 01/06/18 16:19 98.1 70 16 103/52 (69) 95 01/06/18 15:19 66 16 104/58 (73) 97 01/06/18 15:00 70 01/06/18 15:00 98.6 66 16 104/58 (73) 97 01/06/18 14:19 71 16 109/62 (78) 97 I/O 01/06/18 01/06/18 01/06/18 01/07/18 01/07/18 01/07/18 07:00 15:00 23:00 07:00 15:00 23:00 Intake Total 480 ml 270 ml 700 ml Output Total 650 ml 1800 ml 100 ml Balance -170 ml -1530 ml 600 ml Intake Oral 480 ml 120 ml 600 ml IV Total 150 ml 100 ml Output Urine Total 650 ml 1800 ml 100 ml # Voids 1 # Bowel Movements 0 1 Physical Exam GENERAL: NAD, AAOx3 SKIN: Warm and dry. HEAD: Bilateral ecchymosis around eyes EYES: Pupils equal and round. No scleral icterus. No injection or drainage. ENT: No nasal bleeding or discharge. Mucous membranes pink and moist. NECK: Trachea midline. No JVD. CARDIOVASCULAR: RRR, 3/6 crescendo-decrescendo to the RSB. Left chest wall bandage clean/dry RESPIRATORY: No accessory muscle use. Clear to auscultation. Breath sounds equal bilaterally. GASTROINTESTINAL: Abdomen soft, non-tender, nondistended. Hepatic and splenic margins not palpable. MUSCULOSKELETAL: Extremities without clubbing, cyanosis, or edema. No obvious deformities. NEUROLOGICAL: Awake and alert. No obvious cranial nerve deficits. Motor grossly within normal limits. Five out of 5 muscle strength in the arms and legs. Normal speech. PSYCHIATRIC: Appropriate mood and affect; insight and judgment normal. Laboratory Laboratory Tests Test 01/07/18 03:35 White Blood Count 8.5 TH/MM3 Red Blood Count 4.86 MIL/MM3 Hemoglobin 13.8 GM/DL Hematocrit 41.1 % Mean Corpuscular Volume 84.6 FL Mean Corpuscular Hemoglobin 28.5 PG Mean Corpuscular Hemoglobin Concent 33.7 % Red Cell Distribution Width 13.8 % Platelet Count 144 TH/MM3 Mean Platelet Volume 9.3 FL Neutrophils (%) (Auto) 69.0 % Lymphocytes (%) (Auto) 16.4 % Monocytes (%) (Auto) 11.0 % Eosinophils (%) (Auto) 2.9 % Basophils (%) (Auto) 0.7 % Neutrophils # (Auto) 5.9 TH/MM3 Lymphocytes # (Auto) 1.4 TH/MM3 Monocytes # (Auto) 0.9 TH/MM3 Eosinophils # (Auto) 0.2 TH/MM3 Basophils # (Auto) 0.1 TH/MM3 CBC Comment DIFF FINAL Differential Comment Blood Urea Nitrogen 21 MG/DL Creatinine 0.74 MG/DL Random Glucose 97 MG/DL Calcium Level 8.5 MG/DL Sodium Level 137 MEQ/L Potassium Level 3.9 MEQ/L Chloride Level 104 MEQ/L Carbon Dioxide Level 26.9 MEQ/L Anion Gap 6 MEQ/L Estimat Glomerular Filtration Rate 103 ML/MIN Assessment and Plan Problem List: (1) Prosthetic aortic valve stenosis ICD Codes: I35.0 - Nonrheumatic aortic (valve) stenosis Status: Acute (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 ICD Codes: I38 - Endocarditis, valve unspecified; I50.30 - Unspecified diastolic (congestive) heart failure Status: Chronic (3) CAD (coronary artery disease) ICD Codes: I25.10 - Atherosclerotic heart disease of [place] coronary artery without angina pectoris Status: Chronic (4) Syncopal episodes ICD Codes: R55 - Syncope and collapse (5) Facial contusion ICD Codes: S00.83XA - Contusion of other part of head, initial encounter Status: Acute (6) Head injury ICD Codes: S09.90XA - Unspecified injury of head, initial encounter Status: Acute (7) Syncope ICD Codes: R55 - Syncope and collapse Status: Acute Assessment and Plan 1) 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 Casiano Agree with need to place PPM and replacing the valve as [place] 7) Plan for discharge and follow up for consideration of TAVR TAVR CTA today If stable possible discharge home a few hours after CTA, IVF at 100cc/hr for 3-4 hours after CTA Encourage fluids at home Problem Qualifiers (1) CAD (coronary artery disease): Qualified Codes: I25.119 - Atherosclerotic heart disease of [place] coronary artery with unspecified angina pectoris (2) Syncopal episodes: Qualified Codes: R55 - Syncope and collapse (3) Facial contusion: Qualified Codes: S00.83XA - Contusion of other part of head, initial encounter (4) Head injury: Qualified Codes: S09.90XA - Unspecified injury of head, initial encounter (5) Syncope: Qualified Codes: R55 - Syncope and collapse Humble Rojas DO Jan 07, 2018 14:04
--- NOTE | 2018-01-07 16:11 | RADRPT ---
EXAM DATE/TIME: 01/07/2018 12:22 [facility] COMPARISON: No previous studies available for comparison. INDICATIONS : Evaluate aortic valve for replacement. IV CONTRAST: 97 cc Omnipaque 350 (iohexol) IV RADIATION DOSE: 39.37 CTDIvol (mGy) MEDICAL HISTORY : Cardiovascular disease. Aneurysm, abdominal. SURGICAL HISTORY : Pacemaker. Valve replacement ENCOUNTER: Initial ACUITY: 1 day PAIN SCALE: 5/10 LOCATION: Bilateral chest TECHNIQUE: Volumetric scanning was performed using a multi-row detector CT scanner. The data was post processed with a variety of visualization algorithms including full volume maximum intensity projection, multi -planar sliding thin slab reformation, curved planar reformation, and surface rendering techniques. Using automated exposure control and adjustment of the mA and/or kV according to patient size, radiat ion dose was kept as low as reasonably achievable to obtain optimal diagnostic quality images. DIC OM format image data is available electronically for review and comparison. FINDINGS: CARDIAC: The coronary system is right dominant. Diffuse pronounced coronary artery atherosclerotic calcificat ions most abundant on the left but involving both right and left coronary arteries. Left main and lef t anterior descending are most heavily involved. There is no pericardial effusion AORTIC ROOT/VALVE: 3 cusps are evident with mild calcifications. The aortic root measures 3.5 cm. Mid thoracic aorta measures 4.3 cm with no calcifications. THORACIC AORTA: Origin of the great vessels is normal. No evidence of aneurysm, mural thrombus, dissection, mural ca lcification, or stenosis. ABDOMINAL AORTA: No evidence of aneurysm, mural thrombus, dissection, mural calcification, or stenosis. CELIAC ARTERY: Celiac artery is widely patent. SMA: Superior mesenteric artery is widely patent. RIGHT RENAL ARTERY: Right renal arteries are widely patent. 2 equal size arteries supply the kidney. LEFT RENAL ARTERY: Left renal arteries are widely patent. 2 equal size arteries supply the kidney. RIGHT COMMON ILIAC: Eccentric calcified plaque is seen involving the common iliac artery origin generating a 30% stenosis . The vessel measures approximately 8 mm in diameter. No evidence of aneurysm, mural thrombus, or dis section.. The common femoral measures 6 mm with eccentric calcified plaque.. LEFT COMMON ILIAC: No evidence of aneurysm, mural thrombus, dissection, or stenosis. Mild eccentric calcified plaque wit hout significant luminal narrowing. The common femoral measures 7 mm with eccentric calcified plaque .. THORAX: There is a left-sided pacing device. Air is seen directly adjacent to this suggesting recent placemen t. No fluid collection or abscess observed. A tiny right posterior layering pleural effusion. Bibasil ar atelectasis. Heart is mildly enlarged. ABDOMEN: Tiny gallstones are seen layering within an otherwise normal-appearing gallbladder. There is a small filling defect involving the right portal vein concerning for eccentric mural thrombus. Multiple bila teral renal cysts. Scattered colonic diverticuli without acute inflammation. PELVIS: Central calcifications involve the prostate gland. Degenerative changes involving the hip joints bila terally. CONCLUSION: 1. CTA as described above. Special note is made of a linear filling defect involving the right portal vein which either relates to unopacified blood or eccentric mural thrombus. Hepatic Doppler evaluati on could be utilized to further evaluate. 2. Significant coronary artery atherosclerotic calcifications. 3. Tiny right pleural effusion with bibasilar atelectasis. 4. Left-sided pacing device with air adjacent to the pacing pack presumably from recent implantation. Mac De La Torre Jr., MD on January 07, 2018 at 14:48 Board Certified Radiologist. This report was verified electronically.
[2018-01-07] MEDS ORDERED: ceFAZolin 2 GM PREMIX 50 ML IV ONE (16:45)
--- NOTE | 2018-01-07 17:42 | HHI.DS ---
Discharge Summary Admission Date Jan 02, 2018 at 21:29 Admitting Diagnosis syncope; chest pain; minor head injury; hx of AVR 2008 Brief History - From Admission passed out while sitting with around 1130a.m in kitchen, flat on face, had tunnel vision , feeling air coming ears out had lots of blood on floor 911 called had syncope again while EMS was there at home hx of severe aortic stenosis- was replaced in 2011- but was told need replacement now also c/o chest pain to back reports hx of 4.5cm ascending thoracic aneurysm awaiting on surgical intevention BP stat done- 157/74 at left arm, 149/79 at right arm stool has been more black lately only on 81mg asa at home now - 2 a day chest pain only happened at hospital , not at home worsening shortness of breath in past few months with increasing leg swelling CBC/BMP: 01/07/18 0335 01/07/18 0335 Significant Findings Laboratory Tests Test 01/05/18 05:25 01/06/18 05:15 01/07/18 03:35 Blood Urea Nitrogen 19 MG/DL (7-18) 21 MG/DL (7-18) Neutrophils (%) (Auto) 73.0 % (16.0-70.0) Anion Gap 3 MEQ/L (5-15) Platelet Count 144 TH/MM3 (150-450) Monocytes (%) (Auto) 11.0 % (0.0-8.0) PE at Discharge GENERAL: This is a well-nourished, well-developed patient, in no apparent distress. CARDIOVASCULAR: Regular rate and regular rhythm without murmurs, gallops, or rubs. RESPIRATORY: Clear to auscultation. Breath sounds equal bilaterally. No wheezes , rales, or rhonchi. GASTROINTESTINAL: Abdomen soft, non-tender, nondistended. Normal, active bowel sounds MUSCULOSKELETAL: Extremities without clubbing, cyanosis, or edema. NEURO: Alert & Oriented x4 to person, place, time, situation. Moves all ext x4 Pt Condition on Discharge: Stable Discharge Disposition: Disch w/ Home Health Serv Discharge Instructions DIET: Follow Instructions for: Heart Healthy Diet, Diabetic Diet Activities you can perform: Regular-No Restrictions Latasha Ibrahim MD Jan 07, 2018 17:42
--- NOTE | 2018-01-07 19:02 | RADRPT ---
EXAM DATE/TIME: 01/07/2018 18:06 [facility] COMPARISON: No previous studies available for comparison. INDICATIONS : Portal vein thrombosis. MEDICAL HISTORY : Hypertension. Syncope. Measles. Blood transfusion. Hyperlipidemia. Aortic stenosis. Ascending aor tic aneurysm. Afib. Sleep apnea. SURGICAL HISTORY : Cardiac valve replacement. Bilateral humerus repair. Femur and Tib/Fib repair. Left knee surgery. ENCOUNTER: Initial ACUITY: 1 day PAIN SCORE: 0/10 LOCATION: Right upper quadrant AREA EVALUATED: Portal system. FINDINGS: The portal vein and hepatic veins appear patent. CONCLUSION: Unremarkable study. Shahla Farah MD on January 07, 2018 at 18:59 Board Certified Radiologist. This report was verified electronically.
--- NOTE | 2018-01-07 19:29 | HHI.FF ---
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 My clinical findings support the need for the requested home health care services because: Ltd mobility - disease progression I certify that my clinical findings support that this patient is homebound because: Post-op weakness Latasha Ibrahim MD Jan 07, 2018 19:29
--- NOTE | 2018-01-07 20:57 | EKG ---
Date Performed: 01/07/2018 Time Performed: 05:22:06 PTAGE: 72 years EKG: VENTRICULAR PACEMAKER RHYTHM Abnormal ECG PREVIOUS TRACING : 01/06/2018 14.46 Since the prior tracing, there has been no significant gardner DOCTOR: Reuben Castro Interpretating Date/Time 01/07/2018 20:54:49
--- NOTE | 2018-01-07 22:04 | EKG ---
Date Performed: 01/06/2018 Time Performed: 14:46:56 PTAGE: 72 years EKG: Sinus rhythm VENTRICULAR PACEMAKER RHYTHM Abnormal ECG PREVIOUS TRACING : 01/02/2018 02.31 Compared to prior tracing, PACEMAKER RHYTHM IS NEW DOCTOR: Reuben Castro Interpretating Date/Time 01/07/2018 22:02:24
[2018-01-07] MEDS: TEMAZEPAM 7.5 MG CAP PO PRN (23:22)
[2018-01-07] MEDS: ACETAMINOPHEN 325 MG TAB PO PRN (23:25)
--- NOTE | 2018-01-07 23:51 | HHI.PR ---
Subjective Remarks Feeling better Objective Vital Signs Date Time Temp Pulse Resp B/P (MAP) Pulse Ox O2 Delivery O2 Flow Rate FiO2 01/07/18 23:00 86 01/07/18 22:00 96 01/07/18 21:00 80 01/07/18 20:00 74 01/07/18 20:00 99.1 74 16 107/60 (76) 95 01/07/18 19:56 95 Room Air 01/07/18 19:00 76 01/07/18 18:00 74 01/07/18 17:00 80 01/07/18 16:00 76 01/07/18 15:00 99.1 89 16 91/65 (74) 94 01/07/18 15:00 90 01/07/18 14:00 72 01/07/18 13:00 70 01/07/18 12:00 72 01/07/18 11:00 97.7 73 20 94/53 (67) 96 01/07/18 11:00 68 01/07/18 10:00 66 01/07/18 09:30 60 01/07/18 08:00 97 Room Air 01/07/18 07:35 16 01/07/18 07:00 60 01/07/18 07:00 99 2.00 01/07/18 07:00 97.5 60 16 112/59 (76) 99 01/07/18 03:00 99.1 71 16 110/62 (78) 97 01/07/18 03:00 67 I/O 01/07/18 01/07/18 01/07/18 01/08/18 01/08/18 01/08/18 07:00 15:00 23:00 07:00 15:00 23:00 Intake Total 700 ml 770 ml Output Total 100 ml 800 ml Balance 600 ml -30 ml Intake Oral 600 ml 720 ml IV Total 100 ml 50 ml Output Urine Total 100 ml 800 ml # Voids 1 # Bowel Movements 1 Result Diagram: 01/07/1833401/07/18334 Imaging Alert, fully oriented Lungs: ventilated Heart: S1, S2 regular, no gallop Abdomen: soft, no mass Ext: no edema Last Impressions Chest CTA 01/07/18 0000 Signed Impressions: Service Date/Time: Sunday, January 07, 2018 12:22 - CONCLUSION: 1. CTA as described above. Special note is made of a linear filling defect involving the right portal vein which either relates to unopacified blood or eccentric mural thrombus. Hepatic Doppler evaluation could be utilized to further evaluate. 2. Significant coronary artery atherosclerotic calcifications. 3. Tiny right pleural effusion with bibasilar atelectasis. 4. Left-sided pacing device with air adjacent to the pacing pack presumably from recent implantation. Mac De La Torre Jr., MD Abdomen Ultrasound 01/07/18 0000 Signed Impressions: Service Date/Time: Sunday, January 07, 2018 18:06 - CONCLUSION: Unremarkable study. Shahla Farah MD Chest X-Ray 01/06/18 0000 Signed Impressions: Service Date/Time: Saturday, January 06, 2018 13:32 - CONCLUSION: 1. Left-sided pacer in good position without pneumothorax. 2. Mild cardiomegaly with mild pulmonary vascular engorgement. Mac De La Torre Jr., MD Head CT 01/01/18 151 Signed Impressions: Service Date/Time: December 15:44 - CONCLUSION: 1. No acute skull fracture identified. No acute cranial abnormality identified. 2. Soft tissue swelling within the left scalp as above. Clifford Britton MD Cervical Spine CT 01/01/18 151 Signed Impressions: Service Date/Time: December 15:44 - CONCLUSION: 1. Degenerative spondylosis throughout the cervical spine. No acute fracture identified. Individual levels are discussed in detail above. Clifford Britton MD Maxillofacial CT 01/01/18 Signed Impressions: Service Date/Time: December 15:44 - CONCLUSION: 1. No acute facial fracture identified. 2. Large area of soft tissue swelling with small hematoma in the scalp along the left frontal region. Clifford Britton MD Carotid Artery Ultrasound 01/01/18 0000 Signed Impressions: Service Date/Time: December 18:06 - CONCLUSION: Within normal limits. No significant plaque or narrowing. Kendall Carolina MD Aorta CTA 01/01/18 0000 Signed Impressions: Service Date/Time: December 22:38 - CONCLUSION: 1. Negative for thoracic and abdominal aortic aneurysm or dissection. 2. 3 mm nodule right upper lobe. Mucoid material in the right mainstem bronchus. Severe coronary calcifications. Richard Schrader MD Current Medications Medications (Trade) Dose Ordered Sig/Jeanmarie Route Start Time Stop Time Status Last Admin (NS Flush) 2 ml UNSCH PRN IV FLUSH 01/01/18 17:45 (NS Flush) 2 ml BID IV FLUSH 01/01/18 21:00 01/07/18 21:00 (Narcan Inj) 0.4 mg UNSCH PRN IV PUSH 01/01/18 17:45 (Aspirin Chew) 81 mg DAILY CHEW 01/02/18 09:00 01/07/18 11:25 (Zoloft) 100 mg DAILY PO 01/02/18 09:00 01/07/18 11:24 (Diovan) 320 mg DAILY PO 01/02/18 09:00 01/07/18 11:24 (Lipitor) 40 mg DAILY PO 01/02/18 09:00 01/07/18 11:24 (Demadex) 20 mg DAILY PO 01/02/18 09:00 01/07/18 13:36 (Tylenol) 650 mg Q4H PRN PO 01/03/18 03:45 01/07/18 23:25 (Percocet 5-325 Mg) 1 tab Q4H PRN PO 01/05/18 11:00 01/07/18 08:23 (Percocet 5-325 Mg) 2 tab Q4H PRN PO 01/05/18 11:00 01/07/18 14:50 (Atropine Inj) 0.5 mg UNSCH PRN IV PUSH 01/05/18 11:00 (Restoril) 7.5 mg HS PRN PO 01/05/18 21:15 01/07/18 23:22 Lactated Ringer's 1,000 ml @ 30 mls/hr Q24H PRN IV 01/06/18 07:00 01/09/18 06:59 Sodium Chloride 500 ml @ 30 mls/hr [id number] PRN IV 01/06/18 07:00 01/09/18 06:59 (Lopressor) 25 mg STRATEGIES ANALYST PRN PO 01/06/18 07:00 01/09/18 06:59 (Betadine 5% Antisepsis Kit) 1 applic STRATEGIES ANALYST PRN EACH NARE 01/06/18 07:00 01/09/18 06:59 01/06/18 06:00 (Chlorhexidine 2% Cloth) 3 pack STRATEGIES ANALYST PRN TOPICAL 01/06/18 07:00 01/09/18 06:59 01/06/18 07:32 (Flexeril) 5 mg Q8H PRN PO 01/06/18 13:00 (Pill Splitter) 1 ea UNSCH PRN OTHER 01/06/18 12:15 (Zofran Inj) 4 mg Q4H PRN IV PUSH 01/06/18 13:30 (NS Flush) 2 ml BID IV FLUSH 01/06/18 21:00 01/07/18 11:24 (NS Flush) 2 ml UNSCH PRN IV FLUSH 01/06/18 13:30 Assessment and Plan Problem List: (1) Symptomatic bradycardia ICD Codes: R00.1 - Bradycardia, unspecified Plan: SP pacer insertion Clean surgical wound Device well functioning Continue with current management I will be available on a PRN basis (2) Syncopal episodes ICD Codes: R55 - Syncope and collapse Plan: No new episode reported Problem Qualifiers (1) Syncopal episodes: Qualified Codes: R55 - Syncope and collapse Jorge Francis MD Jan 07, 2018 23:51
[2018-01-08] VITALS (15 sets, daily range): BP systolic 87–120; BP diastolic 53–73; PULSE 70–88; RESP 16–20; TEMP 97.9–98.9; O2SAT 92–94
--- NOTE | 2018-01-08 08:10 | HHI.PR ---
Subjective Remarks in no acute distress. denies chest pain or sob. had some cough last night which has resolved. no other complaints. Objective Vitals Vital Signs Date Time Temp Pulse Resp B/P (MAP) Pulse Ox O2 Delivery O2 Flow Rate FiO2 01/08/18 06:00 72 01/08/18 05:00 76 01/08/18 04:00 80 01/08/18 03:30 98.8 81 16 95/53 (67) 92 120/58 (78) 01/08/18 03:00 76 01/08/18 02:00 88 01/08/18 01:00 83 01/08/18 00:30 98.9 88 16 87/55 (66) 108/59 (75) 01/08/18 00:00 87 01/07/18 23:00 99.9 95 16 90/50 (63) 93 108/51 (70) 01/07/18 23:00 86 01/07/18 22:00 96 01/07/18 21:00 80 01/07/18 20:00 74 01/07/18 20:00 99.1 74 16 107/60 (76) 95 01/07/18 19:56 95 Room Air 01/07/18 19:00 76 01/07/18 18:00 74 01/07/18 17:00 80 01/07/18 16:00 76 01/07/18 15:00 99.1 89 16 91/65 (74) 94 01/07/18 15:00 90 01/07/18 14:00 72 01/07/18 13:00 70 01/07/18 12:00 72 01/07/18 11:00 97.7 73 20 94/53 (67) 96 01/07/18 11:00 68 01/07/18 10:00 66 01/07/18 09:30 60 I/O 01/07/18 01/07/18 01/07/18 01/08/18 01/08/18 01/08/18 07:00 15:00 23:00 07:00 15:00 23:00 Intake Total 700 ml 770 ml 480 ml Output Total 100 ml 800 ml 700 ml Balance 600 ml -30 ml -220 ml Intake Oral 600 ml 720 ml 480 ml IV Total 100 ml 50 ml Output Urine Total 100 ml 800 ml 700 ml # Voids 1 # Bowel Movements 1 0 Result Diagram: 01/07/18 0335 01/07/18 0335 Imaging Last Impressions Chest CTA 01/07/18 0000 Signed Impressions: Service Date/Time: Sunday, January 07, 2018 12:22 - CONCLUSION: 1. CTA as described above. Special note is made of a linear filling defect involving the right portal vein which either relates to unopacified blood or eccentric mural thrombus. Hepatic Doppler evaluation could be utilized to further evaluate. 2. Significant coronary artery atherosclerotic calcifications. 3. Tiny right pleural effusion with bibasilar atelectasis. 4. Left-sided pacing device with air adjacent to the pacing pack presumably from recent implantation. Mac De La Torre Jr., MD Abdomen Ultrasound 01/07/18 0000 Signed Impressions: Service Date/Time: Sunday, January 07, 2018 18:06 - CONCLUSION: Unremarkable study. Shahla Farah MD Chest X-Ray 01/06/18 0000 Signed Impressions: Service Date/Time: Saturday, January 06, 2018 13:32 - CONCLUSION: 1. Left-sided pacer in good position without pneumothorax. 2. Mild cardiomegaly with mild pulmonary vascular engorgement. Mac De La Torre Jr., MD Head CT 01/01/18 1511 Signed Impressions: Service Date/Time: December 15:44 - CONCLUSION: 1. No acute skull fracture identified. No acute cranial abnormality identified. 2. Soft tissue swelling within the left scalp as above. Clifford Britton MD Cervical Spine CT 01/01/18 1511 Signed Impressions: Service Date/Time: December 15:44 - CONCLUSION: 1. Degenerative spondylosis throughout the cervical spine. No acute fracture identified. Individual levels are discussed in detail above. Clifford Britton MD Maxillofacial CT 01/01/18 0000 Signed Impressions: Service Date/Time: December 15:44 - CONCLUSION: 1. No acute facial fracture identified. 2. Large area of soft tissue swelling with small hematoma in the scalp along the left frontal region. Clifford Britton MD Carotid Artery Ultrasound 01/01/18 0000 Signed Impressions: Service Date/Time: December 18:06 - CONCLUSION: Within normal limits. No significant plaque or narrowing. Kendall Carolina MD Aorta CTA 01/01/18 0000 Signed Impressions: Service Date/Time: December 22:38 - CONCLUSION: 1. Negative for thoracic and abdominal aortic aneurysm or dissection. 2. 3 mm nodule right upper lobe. Mucoid material in the right mainstem bronchus. Severe coronary calcifications. Richard Schrader MD Objective Remarks GENERAL: This is a well-nourished, well-developed patient, in no apparent distress. CARDIOVASCULAR: Regular rate and regular rhythm without murmurs, gallops, or rubs. RESPIRATORY: Clear to auscultation. Breath sounds equal bilaterally. No wheezes , rales, or rhonchi. GASTROINTESTINAL: Abdomen soft, non-tender, nondistended. Normal, active bowel sounds MUSCULOSKELETAL: Extremities without clubbing, cyanosis, or edema. NEURO: Alert & Oriented x4 to person, place, time, situation. Moves all ext x4 Procedures Permanent pacemaker placement 01/06/[address] Francis EP Medications and IVs Inpatient Medications Acetaminophen (Tylenol) 650 mg Q4H PRN PO temp > 100.4/romero Last administered on 01/07/18at 23:25; Start 01/03/18 at 03:45 Aspirin (Aspirin Chew) 81 mg DAILY CHEW Last administered on 01/07/18at 11:25; Start 01/02/18 at 09:00 Atorvastatin Calcium (Lipitor) 40 mg DAILY PO Last administered on 01/07/18at 11 :24; Start 01/02/18 at 09:00 Atropine Sulfate (Atropine Inj) 0.5 mg UNSCH PRN IV PUSH VAGAL REPONSE; Start 01/05/18 at 11:00 Cefazolin Sodium/ Dextrose 50 ml @ 100 mls/hr ONCE ONCE IV ; Start 01/07/18 at 16:45; Stop 01/07/18 at 17:14; Status DC Chlorhexidine Gluconate (Chlorhexidine 2% Cloth) 3 pack ROR ENGINEER PRN TOPICAL SEE LABEL COMMENTS Last administered on 01/06/18at 07:32; Start 01/06/18 at 07:00 ; Stop 01/09/18 at 06:59 Cyclobenzaprine HCl (Flexeril) 5 mg Q8H PRN PO muscle spasm ; Start 01/06/18 at 13:00 Labetalol HCl (Trandate) 200 mg ONCE ONCE PO Last administered on 01/01/18at 23: 25; Start 01/01/18 at 21:00; Stop 01/01/18 at 21:22; Status DC Lactated Ringer's 1,000 ml @ 30 mls/hr Q24H PRN IV SEE LABEL COMMENTS; Start at 07:00; Stop 01/09/18 at 06:59 Metoprolol Tartrate (Lopressor) 25 mg ROR ENGINEER PRN PO SEE LABEL COMMENTS; Start 01/06/18 at 07:00; Stop 01/09/18 at 06:59 Miscellaneous (Pill Splitter) 1 ea UNSCH PRN OTHER SEE LABEL COMMENTS; Start at 12:15 Miscellaneous Information 1 ONCE ONCE XX Last administered on 01/05/18at 11:15 ; Start 01/05/18 at 11:15; Stop 01/05/18 at 11:16; Status DC Morphine Sulfate (Morphine Inj) 2 mg ONCE ONCE IV PUSH Last administered on 01/02/18at 05:08; Start 01/02/18 at 04:00; Stop 01/02/18 at 04:01; Status DC Naloxone HCl (Narcan Inj) 0.4 mg UNSCH PRN IV PUSH SEE LABEL COMMENTS; Start at 17:45 Nitroglycerin (Nitrostat Sl) 0.4 mg Q5M PRN SL CHEST PAIN Last administered on 01/02/18at 03:05; Start 01/02/18 at 02:30; Stop 01/02/18 at 03:54; Status DC Ondansetron HCl (Zofran Inj) 4 mg Q4H PRN IV PUSH NAUSEA; Start 01/06/18 at 13: 30 Oxycodone/ Acetaminophen (Percocet 5-325 Mg) 2 tab Q4H PRN PO PAIN SCALE 5 TO 10 Last administered on 01/07/18at 14:50; Start 01/05/18 at 11:00 Povidone Iodine (Betadine 5% Antisepsis Kit) 1 applic ROR ENGINEER PRN EACH NARE SEE LABEL COMMENTS Last administered on 01/06/18at 06:00; Start 01/06/18 at 07:00 ; Stop 01/09/18 at 06:59 Sertraline HCl (Zoloft) 100 mg DAILY PO Last administered on 01/07/18 11:24; Start 01/02/18 at 09:00 Sodium Chloride (NS Flush) 2 ml UNSCH PRN IV FLUSH FLUSH AFTER USING IV ACCESS ; Start 01/06/18 at 13:30 Temazepam (Restoril) 7.5 mg HS PRN PO insomnia Last administered on 01/07/18 23:22; Start 01/05/18 at 21:15 Torsemide (Demadex) 20 mg DAILY PO Last administered on 01/07/18 13:36; Start 01/02/18 at 09:00 Valsartan (Diovan) 320 mg DAILY PO Last administered on 01/07/18 11:24; Start 01/02/18 at 09:00 A/P Assessment and Plan Syncope Afib Severe of previous bioprosthetic valve (Mosaic 25). 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 Also had a temporary PM placed during [facility] S/p PPM by Dr Francis 01/06/18 Due to frailty, and redo of open heart, consideration of TAVR, to be evaluated TAVR would be [id number], previous Mosaic 25 so Mary/Corevalve 23 Plan for discharge and follow up for consideration of TAVR Trauma Facial contusions No fractures of the face Right side pain and bruising evaluated with an x-ray Hypertension Continue baseline treatment Follow blood pressures Adjust treatments as needed Hyperlipidemia Continue present treatment Follow as an outpatient [facility] Continue CPAP DVT prophylaxis SCDs given recent trauma Discharge Planning dc home with [facility] today. see med list. f/u with pcp, cardiology and CT surgery. d/w the patient. time spent 35 min. Tres Kowalski MD Jan 08, 2018 08:10
[2018-01-08] MEDS: SODIUM CHLORIDE 0.9% FLUSH 10 ML FLUSH IV FLUSH SCH ×2 (09:00)
[2018-01-08] MEDS: TORSEMIDE 20 MG TAB PO SCH (09:00)
[2018-01-08] MEDS: ASPIRIN 81 MG CHEW TAB CHEW SCH (10:10)
[2018-01-08] MEDS: VALSARTAN 160 MG TAB PO SCH (10:12)
[2018-01-08] MEDS: SERTRALINE HCL 100 MG TAB PO SCH (10:13)
[2018-01-08] MEDS: ATORVASTATIN 40 MG TAB PO SCH (10:13)
[2018-01-08] MEDS: oxyCODONE/ACETAMINOPHEN 5 MG/325 MG TAB PO PRN (10:15)
--- NOTE | 2018-01-08 11:18 | PD.CARD.PN ---
Subjective Subjective Remarks Doing well No complaints Objective Medications Current Medications Medications (Trade) Dose Ordered Sig/Jeanmarie Route Start Time Stop Time Status Last Admin (NS Flush) 2 ml UNSCH PRN IV FLUSH 01/01/18 17:45 (NS Flush) 2 ml BID IV FLUSH 01/01/18 21:00 01/07/18 21:00 (Narcan Inj) 0.4 mg UNSCH PRN IV PUSH 01/01/18 17:45 (Aspirin Chew) 81 mg DAILY CHEW 01/02/18 09:00 01/08/18 10:10 (Zoloft) 100 mg DAILY PO 01/02/18 09:00 01/08/18 10:13 (Diovan) 320 mg DAILY PO 01/02/18 09:00 01/08/18 10:12 (Lipitor) 40 mg DAILY PO 01/02/18 09:00 01/08/18 10:13 (Demadex) 20 mg DAILY PO 01/02/18 09:00 01/07/18 13:36 (Tylenol) 650 mg Q4H PRN PO 01/03/18 03:45 01/07/18 23:25 (Percocet 5-325 Mg) 1 tab Q4H PRN PO 01/05/18 11:00 01/07/18 08:23 (Percocet 5-325 Mg) 2 tab Q4H PRN PO 01/05/18 11:00 01/08/18 10:15 (Atropine Inj) 0.5 mg UNSCH PRN IV PUSH 01/05/18 11:00 (Restoril) 7.5 mg HS PRN PO 01/05/18 21:15 01/07/18 23:22 Lactated Ringer's 1,000 ml @ 30 mls/hr Q24H PRN IV 01/06/18 07:00 01/09/18 06:59 Sodium Chloride 500 ml @ 30 mls/hr [id number] PRN IV 01/06/18 07:00 01/09/18 06:59 (Lopressor) 25 mg OFFICE MACHINES SALES REPRESENTATIVE PRN PO 01/06/18 07:00 01/09/18 06:59 (Betadine 5% Antisepsis Kit) 1 applic OFFICE MACHINES SALES REPRESENTATIVE PRN EACH NARE 01/06/18 07:00 01/09/18 06:59 01/06/18 06:00 (Chlorhexidine 2% Cloth) 3 pack OFFICE MACHINES SALES REPRESENTATIVE PRN TOPICAL 01/06/18 07:00 01/09/18 06:59 01/06/18 07:32 (Flexeril) 5 mg Q8H PRN PO 01/06/18 13:00 (Pill Splitter) 1 ea UNSCH PRN OTHER 01/06/18 12:15 (Zofran Inj) 4 mg Q4H PRN IV PUSH 01/06/18 13:30 (NS Flush) 2 ml BID IV FLUSH 01/06/18 21:00 01/07/18 11:24 (NS Flush) 2 ml UNSCH PRN IV FLUSH 01/06/18 13:30 Vital Signs / I&O Vital Signs Date Time Temp Pulse Resp B/P (MAP) Pulse Ox O2 Delivery O2 Flow Rate FiO2 01/08/18 08:15 97.9 88 20 117/73 (88) 94 01/08/18 07:00 70 01/08/18 06:00 72 01/08/18 05:00 76 01/08/18 04:00 80 01/08/18 03:30 98.8 81 16 95/53 (67) 92 120/58 (78) 01/08/18 03:00 76 01/08/18 02:00 88 01/08/18 01:00 83 01/08/18 00:30 98.9 88 16 87/55 (66) 108/59 (75) 01/08/18 00:00 87 01/07/18 23:00 99.9 95 16 90/50 (63) 93 108/51 (70) 01/07/18 23:00 86 01/07/18 22:00 96 01/07/18 21:00 80 01/07/18 20:00 74 01/07/18 20:00 99.1 74 16 107/60 (76) 95 01/07/18 19:56 95 Room Air 01/07/18 19:00 76 01/07/18 18:00 74 01/07/18 17:00 80 01/07/18 16:00 76 01/07/18 15:00 99.1 89 16 91/65 (74) 94 01/07/18 15:00 90 01/07/18 14:00 72 01/07/18 13:00 70 01/07/18 12:00 72 I/O 01/07/18 01/07/18 01/07/18 01/08/18 01/08/18 01/08/18 07:00 15:00 23:00 07:00 15:00 23:00 Intake Total 700 ml 770 ml 480 ml Output Total 100 ml 800 ml 700 ml Balance 600 ml -30 ml -220 ml Intake Oral 600 ml 720 ml 480 ml IV Total 100 ml 50 ml Output Urine Total 100 ml 800 ml 700 ml # Voids 1 # Bowel Movements 1 0 Physical Exam GENERAL: NAD, AAOx3 SKIN: Warm and dry. HEAD: Bilateral ecchymosis around eyes EYES: Pupils equal and round. No scleral icterus. No injection or drainage. ENT: No nasal bleeding or discharge. Mucous membranes pink and moist. NECK: Trachea midline. No JVD. CARDIOVASCULAR: RRR, 3/6 crescendo-decrescendo to the RSB. Left chest wall bandage clean/dry RESPIRATORY: No accessory muscle use. Clear to auscultation. Breath sounds equal bilaterally. GASTROINTESTINAL: Abdomen soft, non-tender, nondistended. Hepatic and splenic margins not palpable. MUSCULOSKELETAL: Extremities without clubbing, cyanosis, or edema. No obvious deformities. NEUROLOGICAL: Awake and alert. No obvious cranial nerve deficits. Motor grossly within normal limits. Five out of 5 muscle strength in the arms and legs. Normal speech. PSYCHIATRIC: Appropriate mood and affect; insight and judgment normal. Assessment and Plan Problem List: (1) Prosthetic aortic valve stenosis ICD Codes: I35.0 - Nonrheumatic aortic (valve) stenosis Status: Acute (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 ICD Codes: I38 - Endocarditis, valve unspecified; I50.30 - Unspecified diastolic (congestive) heart failure Status: Chronic (3) CAD (coronary artery disease) ICD Codes: I25.10 - Atherosclerotic heart disease of [place] coronary artery without angina pectoris Status: Chronic (4) Syncopal episodes ICD Codes: R55 - Syncope and collapse (5) Facial contusion ICD Codes: S00.83XA - Contusion of other part of head, initial encounter Status: Acute (6) Head injury ICD Codes: S09.90XA - Unspecified injury of head, initial encounter Status: Acute (7) Syncope ICD Codes: R55 - Syncope and collapse Status: Acute Assessment and Plan 1) Severe of previous bioprosthetic valve (Mosaic 25) ALEN 0.83, mean grad 45 2) 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 Casiano Agree with need to place PPM and replacing the valve as unable [place] get [place] fix 7) Plan for discharge and follow up for consideration of TAVR Follow up with Dr. Francis/BYPRODUCTS OPERATOR for wound check in 7-10 days TAVR planned 01/21/18 Cardiovascularly stable for discharge Problem Qualifiers (1) CAD (coronary artery disease): Qualified Codes: I25.119 - Atherosclerotic heart disease of [place] coronary artery with unspecified angina pectoris (2) Syncopal episodes: Qualified Codes: R55 - Syncope and collapse (3) Facial contusion: Qualified Codes: S00.83XA - Contusion of other part of head, initial encounter (4) Head injury: Qualified Codes: S09.90XA - Unspecified injury of head, initial encounter (5) Syncope: Qualified Codes: R55 - Syncope and collapse Humble Rojas DO Jan 08, 2018 11:18
== END 2018-01-08 13:19 | disposition home health service (06) | DRG 243 ==
LOC: NEPE 15:01 → NEDA 17:27 → NEPHCDU 18:47 → OBSVTOIN 01-02 21:29 → HCIS 01-03 00:06 → HCVI 01-05 11:05 → HCIS 01-07 09:04
PROVIDERS: ADMIT Internal Medicine; ATTEND Internal Medicine
PROC: 0HQ1XZZ Repair Face Skin, External Approach (ICD-10-PCS; 2018-01-02)
PROC: 4A023N8 Measurement of Cardiac Sampling and Pressure, Bilateral, Percutaneous Approach (ICD-10-PCS; 2018-01-05)
PROC: B2111ZZ Fluoroscopy of Multiple Coronary Arteries using Low Osmolar Contrast (ICD-10-PCS; 2018-01-05)
PROC: B2151ZZ Fluoroscopy of Left Heart using Low Osmolar Contrast (ICD-10-PCS; 2018-01-05)
PROC: 0JH606Z Insertion of Pacemaker, Dual Chamber into Chest Subcutaneous Tissue and Fascia, Open Approach (ICD-10-PCS; 2018-01-06)
PROC: 02HK3JZ Insertion of Pacemaker Lead into Right Ventricle, Percutaneous Approach (ICD-10-PCS; 2018-01-06)
PROC: 02H63JZ Insertion of Pacemaker Lead into Right Atrium, Percutaneous Approach (ICD-10-PCS; principal; 2018-01-06 09:00)
DX: T82.857A Stenosis of other cardiac prosthetic devices, implants and grafts, initial encounter (principal); I38 Endocarditis, valve unspecified; I71.2 Thoracic aortic aneurysm, without rupture; I50.30 Unspecified diastolic (congestive) heart failure; I11.0 Hypertensive heart disease with heart failure; I48.91 Unspecified atrial fibrillation; I45.3 Trifascicular block; R55 Syncope and collapse; S01.81XA Laceration without foreign body of other part of head, initial encounter; S01.111A Laceration without foreign body of right eyelid and periocular area, initial encounter; E78.5 Hyperlipidemia, unspecified; G47.33 Obstructive sleep apnea (adult) (pediatric); I35.0 Nonrheumatic aortic (valve) stenosis; I25.119 Atherosclerotic heart disease of native coronary artery with unspecified angina pectoris; Y83.1 Surgical operation with implant of artificial internal device as the cause of abnormal reaction of the patient, or of later complication, without mention of misadventure at the time of the procedure; Z96.652 Presence of left artificial knee joint; M89.9 Disorder of bone, unspecified; Z99.81 Dependence on supplemental oxygen; W18.39XA Other fall on same level, initial encounter; Y92.000 Kitchen of unspecified non-institutional (private) residence as the place of occurrence of the external cause; Y93.9 Activity, unspecified; Z87.891 Personal history of nicotine dependence
CPT/HCPCS: 33208; 33210; 70450; 70486; 71045; 71046; 71275; 72125; 74174; 76705; 80048; 81001; 82040; 82550; 82552; 82810; 83735; 84484; 85002; 85025; 85027; 85610; 85730; 93005; 93306; 93456; 93880; 94010; 96374; 96375; C1769; C1785; C1887; C1893; C1898; G0378; G8987-GP; G8988-GP; J0171; J0461; J0690; J1644; J2250; J2270; J2405; J3010; J3370; J7050; Q9967

== ENCOUNTER 2018-01-21 08:34 | Inpatient (IN) | payer MEDICARE, BC ==
[~2018-01-21] VITALS: Ht 170.2 cm; Wt 102.6 kg
[~2018-01-21 08:34] MED LIST: ASPI-516 CHEW; CENTCHW4 CHEW; CYCL10TA PO; OXYC1TAB35 PO; ROSU1TAB8 PO; SERT-129 PO; TORS1TAB12 PO; VALS1TAB70 PO
[2018-01-21] MEDS ORDERED: ASPIRIN 325 MG TAB PO SCH (09:00)
[2018-01-21] MEDS ORDERED: MUPIROCIN 2% OINT 1 APPLIC/GM SYRINGE EACH NARE PRN (09:00)
[2018-01-21] MEDS ORDERED: CHLORHEXIDINE GLUCONATE 2 % 1 PACK (2 CLOTHS) TOPICAL PRN (09:00)
[2018-01-21] MEDS ORDERED: SODIUM CHLOR 0.9% 1000 ML 1,000 ML IV SCH (09:00)
[2018-01-21] MEDS ORDERED: POVIDONE IODINE 5% (ANTISEPSIS KIT) EACH NARE PRN (09:00)
[2018-01-21] MEDS ORDERED: ceFAZolin 2 GM PREMIX 50 ML IV PRN (09:00)
[2018-01-21 09:22] VITALS: BP 147/77; PULSE 83; RESP 18; TEMP 97.6; O2SAT 98
[2018-01-21 09:25] LABS: BASOPHIL # 0.1 TH/MM3 (0-0.2); BASOPHIL % 1.2 % (0.0-2.0); EOSINOPHIL # 0.2 TH/MM3 (0-0.4); EOSINOPHIL % 3.1 % (0.0-4.0); HEMATOCRIT 44.2 % (39.0-51.0); LYMPHOCYTE # 1.4 TH/MM3 (1.0-4.8); MEAN CELL VOLUME 84.1 FL (80.0-100.0); MEAN CORPUSCULAR HEMOGLOBIN 28.6 PG (27.0-34.0); MEAN PLATELET VOLUME 8.5 FL (7.0-11.0); MONO % 6.5 % (0.0-8.0); MONOCYTE # 0.4 TH/MM3 (0-0.9); NEUT % 66.2 % (16.0-70.0); PLATELET COUNT 218 TH/MM3 (150-450); RED BLOOD COUNT 5.26 MIL/MM3 (4.50-5.90); RED CELL DISTRIBUTION WIDTH 13.9 % (11.6-17.2); WHITE BLOOD COUNT 6.1 TH/MM3 (4.0-11.0)
[2018-01-21 09:42] LABS: BICARBONATE 30.7 MEQ/L (21.0-32.0); CALCIUM 9.9 MG/DL (8.5-10.1); CREATININE 0.94 MG/DL (0.60-1.30)
[2018-01-21] MEDS ORDERED: SODIUM CHLOR 0.9% 250 ML INJ 250 ML IV ONE (12:00)
[2018-01-21] MEDS ORDERED: NEOSTIGMINE 5 MG/5 ML SYRINGE IV PUSH ONE (12:00)
[2018-01-21] MEDS ORDERED: GLYCOPYRROLATE 1 MG/5 ML SYRINGE IV PUSH ONE (12:00)
[2018-01-21] MEDS ORDERED: PROPOFOL 200 MG/20 ML AMP IV ONE (12:00)
[2018-01-21] MEDS ORDERED: NS 500 ML (EXCEL BAG) INJ 500 ML IV ONE (12:00)
[2018-01-21] MEDS ORDERED: ONDANSETRON HCL 4 MG/2 ML VIAL IV PUSH ONE (12:00)
[2018-01-21] MEDS ORDERED: PHENYLEPH/NS 1000 MCG/10 ML SYR IV ONE (12:00)
[2018-01-21] MEDS ORDERED: ROCURONIUM INJ 50 MG/5 ML SYRINGE IV PUSH ONE (12:00)
[2018-01-21] MEDS ORDERED: NORMOSOL R INJ 1,000 ML IV ONE (12:00)
[2018-01-21] MEDS ORDERED: NOREPINEPHRINE 4 MG/4 ML AMP ONE (13:57)
[2018-01-21] MEDS ORDERED: HEPARIN SODIUM - IV 10,000 UNITS/10 ML VIAL ONE (13:57)
[2018-01-21] MEDS ORDERED: PROTAMINE SULFATE 50 MG/5 ML VIAL ONE (13:57)
[2018-01-21] MEDS ORDERED: MIDAZOLAM HCL 2 MG/2 ML VIAL ONE (13:59)
[2018-01-21] MEDS ORDERED: fentaNYL CITRATE 250 MCG/5 ML AMP ONE (13:59)
[2018-01-21] MEDS ORDERED: HEPARIN-NS/PF FLUSH BAG 2,000 ML IV FLUSH ONE (14:25)
[2018-01-21] MEDS ORDERED: POTASSIUM CHLORIDE 40 MEQ/20 ML VIAL ONE (14:41)
[2018-01-21] MEDS ORDERED: IOHEXOL 300 MG/ML 50 ML BTL (for RAD DIAG) IVCONTRAST ONE (16:00)
[2018-01-21] MEDS ORDERED: SODIUM CHLOR 0.9% 1000 ML INJ 1,000 ML IV SCH (16:13)
[2018-01-21] MEDS ORDERED: DEXTROSE 50% IN WATER 50 ML VIAL(D50) IV PUSH PRN (16:15)
[2018-01-21] MEDS ORDERED: MISC INFORMATION OTHER ONE (16:15)
[2018-01-21] MEDS ORDERED: GLUCAGON 1 MG/ML VIAL OTHER PRN (16:15)
--- NOTE | 2018-01-21 16:15 | PD.OP ---
cc: Kortney Sherman MD; Rose Enamorado MD; Jonah Pinzon MD Operative Report Date of Surgery: Jan 21, 2018 Preoperative Diagnosis: (1) Diastolic CHF due to valvular disease (2) Prosthetic aortic valve stenosis Postoperative Diagnosis: same Procedure: Transcatheter aortic valve replacement with a 23 Mary 3 tissue valve (valve in valve) Bilateral percutaneous femoral artery access with Perclose closure on right. Left percutaneous femoral vein access Aortography Fluoroscopy Anesthesia: Dr. Fernando Surgeon: Rose Enamorado Co-surgeon - Dr. Pinzon Assistant Executive Housekeeper(s): Dr. Tiki Sherman Operation and Findings: The risks, benefits, complications, treatment options, and expected outcomes were discussed with the patient. The possibilities of reaction to medication, pulmonary aspiration, perforation of viscus, bleeding, recurrent infection, the need for additional procedures, failure to diagnose a condition, and creating a complication requiring transfusion or operation were discussed with the patient. The patient concurred with the proposed plan, giving informed consent. The site of surgery properly noted/marked. The patient was taken to the hybrid operating room, identified as Dashawn Santiago and the procedure verified as Transcatheter Aortic Valve Replacement. A Time Out was held and the above information confirmed. Standard monitoring lines and Little catheter were placed. General anesthesia was induced. The patient was prepped and draped in a sterile fashion. Initially, left femoral arterial and venous access was acquired using a Seldinger percutaneous technique. The details of this procedure were dictated under separate note by cardiology. Once a pigtail was positioned in the aortic annulus and a temporary transvenous pacemaker wire was placed in the right ventricular apex and tested, the right femoral artery was accessed using a needle followed by a guidewire under fluoroscopic guidance. The patient was heparinized and 2 Perclose devices positioned for later closure. Serial dilators were used to dilate the right femoral artery to 14 [place] caliber. The Hernandez sheath was then inserted up to the distal abdominal aorta. Arch aortography was performed to define the implant view. A 23 Hernandez Mary 3 transcatheter aortic valve was then positioned in the annulus and deployed within the patient's previously placed 25 Mosaic aortic valve with the patient being paced at 180 beats per minute. Following deployment, the valve apparatus was withdrawn and ADELFO were performed to assess the valve. The valve had no perivalvular leaks. Gradients were then measured and the sheath was removed. Perclose devices secured and protamine administered. Sterile dressings were placed. At the end of the operation, all sponge, instruments, and needle counts were correct. The patient was transferred to the CVICU in stable condition. Findings: Valve in valve 23 S3 with no PVL. Implants: 23 S# tissue valve Complications: none Disposition: to CVICU in stable condition Rose Enamorado MD Jan 21, 2018 16:15
[2018-01-21 16:30] VITALS: BP_SYST 118; BP_SYST 93; BP_DIAS 44; BP_DIAS 74; PULSE 68; RESP 18; TEMP 97.6; O2SAT 95
--- NOTE | 2018-01-21 16:57 | MA ---
cc: Jonah Pinzon MD PROCEDURE: Transcatheter aortic valve replacement. HEDGE FUND ACCOUNTANT: waredresser, Jonah Pinzon MD PRIMARY CARDIOTHORACIC SURGEON: Rose Enamorado MD ASSIST CARDIOTHORACIC SURGEON: Kortney Sherman MD PROCEDURES PERFORMED: 1. Fluoroscopy interpretation. 2. Ascending aortography. 3. Transcatheter aortic valve replacement with Hernandez Mary 3 23 mm bioprosthetic valve. 4. Temporary transvenous pacemaker placement. 5. Transesophageal echocardiogram. METHOD: Risks, benefits and alternatives discussed with the patient. Patient understood, consented to the procedure. Patient was brought in catheterization lab, placed on catheterization table. Bilateral groins were prepped. Left groin was anesthetized with 2% lidocaine. Left common femoral artery was cannulated and a 5 [place] 11 cm sheath was placed without difficulty, left femoral vein accessed, and a 5 [place] 11 cm sheath was placed without difficulty. Right femoral artery was accessed and an 8 [place] sheath placed. Two Perclose devices were then successfully deployed in a preclose position at 10 o'clock and 2 o'clock within the right common femoral artery. A 10 [place] dilator was then advanced up and predilated the vessel for the 14 [place] Hernandez sheath, which was advanced to the level of the descending aorta. ASCENDING AORTOGRAPHY: Ascending aortography was performed in a [place] 8, caudal 24 view, which lined up the stent struts for the bioprosthetic valve in appropriate plane. Ascending aortography revealed mildly dilated ascending aorta, valve well visualized with the cusps and coronary arteries. TEMPORARY TRANSVENOUS PACEMAKER: Temporary transvenous pacemaker was advanced through the right internal jugular sheath to the right ventricular apex, appropriate pacing and capture confirmed. TRANSCATHETER AORTIC VALVE REPLACEMENT: A 6 [place] AO1 catheter was advanced to the ascending aorta over the J-wire. Amplatz straight wire was then attempted to cross the bioprosthetic valve on several attempts, which were unsuccessful. We exchanged for a multipurpose catheter and a stiff Glidewire. After some time and difficulty, we were finally able to advance across the bioprosthetic valve. Multipurpose was advanced into the left ventricle, and the Medtronic Confida wire advanced into the apex of the left ventricle. Multipurpose catheter removed. The 23 mm Hernandez valve was then advanced through the right femoral venous sheath to the level of the descending aorta. The valve balloon was pulled back into the stent and the entire delivery system advanced over the wire across the aortic valve. Appropriate positioning was confirmed, and under rapid pacing, the valve was successfully deployed in excellent position. The balloon was carefully removed, wire removed. Patient tolerated the procedure well without any marissa or postprocedural complications. The right groin was closed successfully with 2 Perclose devices and good hemostasis. The left femoral vein and artery were both closed with 5 [place] Mynx closure devices with good hemostasis. Patient was recovered from general anesthesia. POST-VALVE DEPLOYMENT INTRAOPERATIVE TRANSESOPHAGEAL ECHOCARDIOGRAM FINDINGS: 1. Post-aortic valve area is calculated 1.2 cm2. 2. Post-implant mean gradient 10 mmHg. 3. Post-implant peak velocity 2 m/sec. 4. No aortic insufficiency noted. PLAN: The patient will be monitored closely for any post-procedural complications. Will attempt to mobilize the patient quickly and restart on medications. Will watch for any arrhythmias or bleeding. MD CARLOS Armijo/COLE , 04:24 PM , 04:56 PM CAROLE
[2018-01-21 17:00] VITALS: PULSE 68
[2018-01-21] MEDS ORDERED: CLOPIDOGREL 300 MG TAB PO ONE (17:00)
--- NOTE | 2018-01-21 17:35 | MH ---
cc: Jonah Pinzon MD DATE OF ADMISSION: 01/21/2018 HISTORY OF PRESENT ILLNESS: A very nice 32-year-old gentleman has a history of prior bioprosthetic aortic valve replacement, who had a syncopal episode with associated chest pain. He was found to have third degree heart block and had permanent pacemaker placement. Echocardiogram revealed normal ejection fraction but severe bioprosthetic aortic valve stenosis. He was worked up and felt to be a good candidate for transcatheter aortic valve replacement since he was a high risk candidate for surgical replacement for reoperation. PAST MEDICAL HISTORY: Hypertension, hyperlipidemia, aortic stenosis, ascending aortic aneurysm, atrial fibrillation, obstructive sleep apnea. ALLERGIES: NO KNOWN DRUG ALLERGIES. SOCIAL HISTORY: He has smoked about 36 years. Denies any drug or alcohol use. REVIEW OF SYSTEMS: A 12-point review of systems of performed, negative unless otherwise noted in history of present illness. PHYSICAL EXAMINATION: VITAL SIGNS: Temp is normal, heart rate is 68, blood pressure is 120/60 mmHg. GENERAL: Alert and oriented x 4, no acute distress. HEENT: Shows pupils reactive to light and accommodation. Extraocular movements are intact. NECK: No elevation of jugular venous distention. No thyromegaly, no lymphadenopathy, no carotid bruits. LUNGS: Clear to auscultation bilaterally. CARDIOVASCULAR: Irregular regular rhythm. ABDOMEN: Good bowel sounds, no hepatosplenomegaly. EXTREMITIES: Show no clubbing, cyanosis or edema. Good peripheral pulses. NEUROLOGIC: Cranial nerves intact. Motor, sensory and gait intact. TRANSCATHETER AORTIC VALVE REPLACEMENT EVALUATION SUMMARY: STS score 3.3%. [place] Heart Association class 3. BMI 34.5. Frailty score 2/4. Pulmonary function testing shows moderate restrictive disease with 1.53 FEV1. Transthoracic echocardiogram shows peak velocity of 4.5 meters per second with a mean gradient of 45 mmHg, calculated aortic valve area 0.83 centimeters squared, low-normal ejection fraction of 50-55%. Coronary angiogram shows mild to moderate nonobstructive coronary disease. CT of the chest showed annulus and long annulus diameter is 23 mm secondary to the valve ring. Annular area is calculated at 415.3 meters squared. S3 Hernandez 23 mm valve was chosen. Sinuses of Valsalva is 37.4, sinotubular junction diameter is 38.3 mm, left coronary height 12.0 mm and right coronary height is 14.7 mm. Both iliac arteries are adequate to accommodate sheath. ASSESSMENT: 1. Severe bioprosthetic aortic valve stenosis. 2. Ascending aortic aneurysm. 3. Atrial fibrillation. PLAN: Details of the procedure were discussed with the patient. The patient is agreeable to proceed. We will plan for right common femoral access related to device deployment and we will use a balloon-expandable Hernandez Mary 3 bioprosthetic valve in valve deployment. MD CARLOS Armijo/PERRY , 04:59 PM , 05:33 PM CAROLE
--- NOTE | 2018-01-21 17:46 | PD.CONS ---
HPI Service Critical Care Medicine Consult Requested By Dr. Pinzon Reason for Consult management of comorbid medical conditions Primary Care Physician No Primary Care Physician History of Present Illness This is a 72-year-old male with a history of severe aortic stenosis status post bioprosthetic valve with bioprosthetic aortic valve stenosis which is causing severe symptoms. Today he underwent elective transcatheter aortic valve replacement. Intraoperative events were uncomplicated. He arrives to the CVICU extubated, arousing from anesthesia. Due to his somnolence, full review of systems is unobtainable. Patient does deny chest pain, shortness of breath, headache, nausea. Critical care medicine has been consulted to evaluate manage his medical comorbidities. Review of Systems ROS Limitations: Clinical Condition, Altered Mental Status Respiratory: DENIES: Shortness of breath Cardiovascular: DENIES: Chest pain Gastrointestinal: DENIES: Nausea, Vomiting Neurologic: DENIES: Headache ROS Arousing from anesthesia Past Family Social History Allergies: Coded Allergies: No Known Allergies (Verified Allergy, Unknown, 01/01/18) Past Medical History htn hyperlipidemia aortic stenosis ascending aortic aneursym 4.5cm afib kris on cpap cogential multiple exostosis Past Surgical History Past Surgical History aortic valve replacement 2012 pig valve coronary angiogram 2012 orthopedics surgeries Reported Medications Oxycodone-Acetaminophen 7.5-325 mg Tab 1-2 Tab PO Q6HR PRN Demadex (Torsemide) 20 Mg Tab 20 Mg PO DAILY Flexeril (Cyclobenzaprine HCl) 10 Mg Tab 5 Mg PO Q8H PRN Sertraline (Sertraline HCl) 100 Mg Tab 100 Mg PO DAILY Valsartan 320 Mg Tab 160 Mg PO DAILY Rosuvastatin (Rosuvastatin Calcium) 20 Mg Tab 20 Mg PO DAILY Centrum (Multiple Vitamins W/ Minerals) 1 Chew 1 Tab CHEW DAILY Aspirin 81 Mg Chew 81 Mg CHEW DAILY Active Ordered Medications See MAR Family History parents- heart problems Social History used to smoke, quit 2011 social drinker no drugs Physical Exam Vital Signs Vital Signs Date Time Temp Pulse Resp B/P (MAP) Pulse Ox O2 Delivery O2 Flow Rate FiO2 01/21/18 17:00 98 Nasal Cannula 2.00 01/21/18 17:00 68 01/21/18 16:30 95 Nasal Cannula 4.00 01/21/18 16:30 97.6 68 18 93/44 (60) 95 118/74 (89) 01/21/18 09:22 97.6 83 18 147/77 (100) 98 Physical Exam GENERAL: Frail elderly male, lying in bed, arousing from anesthesia HEENT: Normocephalic. Atraumatic. Pupils equal, round, reactive, conjugate. Mucous membranes are moist NECK: Trachea is midline. There is no JVD. Right IJ introducer sheath with transvenous pacer in place, site intact, clean dry CHEST: Unlabored. Equal chest rise. Nasal cannula oxygen. CARDIOVASCULAR: Normal rate, regular rhythm. Intermittently paced via permanent pacemaker. ABDOMEN: Soft, nontender, nondistended. No guarding. MUSCULOSKELETAL: Pulses 2+. No peripheral edema. Bilateral groin sites dressings intact, clean and dry, no evidence of hematoma. Distal lower extremity Dopplers positive NEUROLOGICAL: RASS -2. Arousing from anesthesia. No focal deficits. Moves all extremities. Laboratory Laboratory Tests Test 01/21/18 09:05 White Blood Count 6.1 Red Blood Count 5.26 Hemoglobin 15.0 Hematocrit 44.2 Mean Corpuscular Volume 84.1 Mean Corpuscular Hemoglobin 28.6 Mean Corpuscular Hemoglobin Concent 34.0 Red Cell Distribution Width 13.9 Platelet Count 218 Mean Platelet Volume 8.5 Neutrophils (%) (Auto) 66.2 Lymphocytes (%) (Auto) 23.0 Monocytes (%) (Auto) 6.5 Eosinophils (%) (Auto) 3.1 Basophils (%) (Auto) 1.2 Neutrophils # (Auto) 4.0 Lymphocytes # (Auto) 1.4 Monocytes # (Auto) 0.4 Eosinophils # (Auto) 0.2 Basophils # (Auto) 0.1 CBC Comment DIFF FINAL Differential Comment Prothrombin Time 10.0 Prothromb Time International Ratio 1.0 Activated Partial Thromboplast Time 23.6 Blood Urea Nitrogen 15 Creatinine 0.94 Random Glucose 101 Calcium Level 9.9 Sodium Level 142 Potassium Level 4.0 Chloride Level 106 Carbon Dioxide Level 30.7 Anion Gap 5 Estimat Glomerular Filtration Rate 78 Result Diagram: 01/21/1890401/21/18904 Assessment and Plan Assessment and Plan Assessment: 72-year-old male postop day 0 status post transcatheter aortic valve replacement. Watch in ICU closely. Monitor urine output. Maintenance fluids. s/p TAVR with groin access 01/21 - mivf - flat time, then OOB - close uop monitoring - anticoagulation per Dr. Pinzon Hypertension - goal sbp < 180 recently post-op from TAVR - add back anti-hypertensives prn Hyperlipidemia - restart home statin Atrial fibrillation - s/p recent permanent pacemaker - currently rate controlled. KRIS on home CPAP - ok to use home CPAP here - wean o2 for goal spo2 > 90% - aggressive pulmonary toilet - hob elevated after flat time. CCM will continue to follow along while patient remains in the CVICU. Mart Copeland MD Jan 21, 2018 17:46
--- NOTE | 2018-01-21 17:49 | PD.PROCEDR ---
Procedure Note Procedure Procedure: Transesophageal Echocardiography Diagnosis: Severe aortic stenosis Indications: Perioperative planning for transcatheter aortic valve replacement Consent: Obtained Anesthesia: General endotracheal anesthesia Description of the Procedure: The patient was sedated and mechanically ventilated. The echo probe was inserted easily and without resistance. At the conclusion of the procedure, the echo probe was removed. Please see detailed echocardiogram report for formal findings. Preliminary Findings (not confirmed): Pre-procedure: 1) grossly normal biventricular function 2) severe bioprosthetic aortic valve stenosis 3) trace tricuspid regurgitation 4) mild mitral regurgitation 5) no aortic regurgitation 6) no pericardial effusion 7) no evidence of intra-atrial shunting by color flow Doppler Post-procedure: 1) s/p successful placement of transcatheter bioprosthetic aortic valve 2) no perivalvular leak 3) no pericardial effusion The patient tolerated the procedure well with no hemodynamic instability. There were no immediate complications noted. There was minimal EBL. I personally performed the procedure. Mart Copeland MD Jan 21, 2018 17:49
[2018-01-21 19:00] VITALS: PULSE 79
[2018-01-21 19:20] VITALS: BP 122/55; PULSE 82; RESP 20; TEMP 98.7; O2SAT 97
[2018-01-21] MEDS ORDERED: PILL SPLITTER OTHER PRN (21:15)
[2018-01-21] MEDS ORDERED: CYCLOBENZAPRINE HCL 10 MG TAB PO PRN (21:15)
[2018-01-21 23:25] VITALS: BP_SYST 114; BP_SYST 115; BP_DIAS 64; BP_DIAS 69; PULSE 67; PULSE 75; RESP 19; TEMP 99.1; O2SAT 97
--- NOTE | 2018-01-22 03:19 | HHI.CCPN ---
Subjective Remarks/Hospital Course Hospital Course: This is a 72-year-old male with a history of severe aortic stenosis status post bioprosthetic valve with bioprosthetic aortic valve stenosis which is causing severe symptoms. Today he underwent elective transcatheter aortic valve replacement. Intraoperative events were uncomplicated. He arrives to the CVICU extubated, arousing from anesthesia. Due to his somnolence, full review of systems is unobtainable. Patient does deny chest pain, shortness of breath, headache, nausea. Critical care medicine has been consulted to evaluate manage his medical comorbidities. subjective: 01/22: clinically stable. invasive lines removed. storey removed. voiding. adequate uop. blood pressure wnl. neurovascularly intact. Objective Vital Signs Date Time Temp Pulse Resp B/P (MAP) Pulse Ox O2 Delivery O2 Flow Rate FiO2 01/21/18 23:25 75 01/21/18 23:25 97 Nasal Cannula 2.00 01/21/18 23:25 99.1 19 115/69 (84) 114/64 (81) Result Diagram: 01/21/1890401/21/18904 Objective Remarks GENERAL: Frail elderly male, lying in bed, resting comfortably. HEENT: Normocephalic. Atraumatic. Pupils equal, round, reactive, conjugate. Mucous membranes are moist NECK: Trachea is midline. There is no JVD. CHEST: Unlabored. Equal chest rise. Nasal cannula oxygen. CARDIOVASCULAR: Normal rate, regular rhythm. Intermittently paced via permanent pacemaker. ABDOMEN: Soft, nontender, nondistended. No guarding. MUSCULOSKELETAL: Pulses 2+. No peripheral edema. Bilateral groin sites dressings intact, clean and dry, no evidence of hematoma. Distal lower extremity Dopplers positive NEUROLOGICAL: RASS 0. No focal deficits. Moves all extremities. A/P Assessment and Plan Assessment: 72-year-old male postop day 1 status post transcatheter aortic valve replacement. Stable for transfer to floor. s/p TAVR with groin access 01/21 - saline lock ivf. - OOB and ambulating with assist. - anticoagulation per Dr. Pinzon Hypertension - goal sbp < 180 - add back home anti-hypertensives Hyperlipidemia - home statin Atrial fibrillation - s/p recent permanent pacemaker - currently rate controlled. ROWAN on home CPAP - ok to use home CPAP here - wean o2 for goal spo2 > 90% - aggressive pulmonary toilet - hob elevated CCM will sign off. please re-consult as needed. stable for transfer to floor. Mart Copeland MD Jan 22, 2018 03:19
[2018-01-22 03:28] VITALS: O2SAT 99
[2018-01-22 03:34] VITALS: BP_SYST 126; BP_SYST 129; BP_DIAS 61; BP_DIAS 62; PULSE 74; RESP 16; TEMP 98.4; O2SAT 97
[2018-01-22 04:41] LABS: HEMATOCRIT 36.3 % (39.0-51.0); HEMOGLOBIN 12.5 GM/DL (13.0-17.0); MEAN CELL VOLUME 83.7 FL (80.0-100.0); MEAN CORPUSCULAR HEMOGLOBIN 28.8 PG (27.0-34.0); MEAN CORPUSCULAR HGB CONC 34.4 % (32.0-36.0); MEAN PLATELET VOLUME 8.2 FL (7.0-11.0); PLATELET COUNT 186 TH/MM3 (150-450); RED BLOOD COUNT 4.34 MIL/MM3 (4.50-5.90); RED CELL DISTRIBUTION WIDTH 14.1 % (11.6-17.2); WHITE BLOOD COUNT 8.2 TH/MM3 (4.0-11.0)
[2018-01-22 04:48] VITALS: PULSE 71
[2018-01-22 05:09] LABS: BICARBONATE 27.8 MEQ/L (21.0-32.0); CALCIUM 8.4 MG/DL (8.5-10.1); CREATININE 0.67 MG/DL (0.60-1.30)
[2018-01-22 07:00] VITALS: BP_SYST 113; BP_SYST 122; BP_DIAS 57; BP_DIAS 70; PULSE 72; PULSE 74; RESP 18; TEMP 98.8; O2SAT 98
--- NOTE | 2018-01-22 08:40 | PD.CAR.PN ---
CVT Progress Note Subjective/Hospital Course: 72-year-old gentleman has a history of prior bioprosthetic aortic valve replacement, who had a syncopal episode with associated chest pain. He was found to have third degree heart block and had permanent pacemaker placement. Echocardiogram revealed normal ejection fraction but severe bioprosthetic aortic valve stenosis. He was worked up and felt to be a good candidate for transcatheter aortic valve replacement since he was a high risk candidate for surgical replacement for reoperation. PAST MEDICAL HISTORY: Hypertension, hyperlipidemia, aortic stenosis, ascending aortic aneurysm, atrial fibrillation, obstructive sleep apnea. surgery: 01/21 Transcatheter aortic valve replacement with a 23 Mary 3 tissue valve (valve in valve) Bilateral percutaneous femoral artery access with Perclose closure on right. Left percutaneous femoral vein access 01/22 doing well on room air, underlying rhythm afib rate controlled has permanent pacer , site with mild erythema doing well, c/o of burning on urination will check UA stable for transfer , possible dc home later today , when cleared by cardiology Objective: GENERAL: A&O x 3 SKIN: Warm and dry. left pacer site with mild erythema , dressing to right IJ site and both groins, good distal pulses HEAD: Normocephalic. EYES: No scleral icterus. No injection or drainage. NECK: Supple, trachea midline. No JVD or lymphadenopathy. CARDIOVASCULAR: irregular rate and rhythm without murmurs, gallops, or rubs. RESPIRATORY: Breath sounds equal bilaterally. No accessory muscle use. GASTROINTESTINAL: Abdomen soft, non-tender, nondistended. MUSCULOSKELETAL: No cyanosis, or edema. BACK: Nontender without obvious deformity. No CVA tenderness. Vital Signs Date Time Temp Pulse Resp B/P (MAP) Pulse Ox O2 Delivery O2 Flow Rate FiO2 01/22/18 07:00 74 01/22/18 07:00 98.8 72 18 122/70 (87) 98 113/57 (75) 01/22/18 07:00 98 Nasal Cannula 2.00 01/22/18 04:48 71 01/22/18 03:34 98.4 74 16 129/62 (84) 97 126/61 (82) 01/22/18 03:34 97 Nasal Cannula 2.00 01/22/18 03:28 99 Nasal Cannula 2.00 01/21/18 23:25 75 01/21/18 23:25 97 Nasal Cannula 2.00 01/21/18 23:25 99.1 67 19 115/69 (84) 97 114/64 (81) 01/21/18 19:20 97 Nasal Cannula 2.00 01/21/18 19:20 98.7 82 20 122/55 (77) 97 01/21/18 19:00 79 01/21/18 17:00 98 Nasal Cannula 2.00 01/21/18 17:00 68 01/21/18 16:30 95 Nasal Cannula 4.00 01/21/18 16:30 97.6 68 18 93/44 (60) 95 118/74 (89) 01/21/18 09:22 97.6 83 18 147/77 (100) 98 Labs: Laboratory Tests Test 01/22/18 04:16 White Blood Count 8.2 TH/MM3 (4.0-11.0) Red Blood Count 4.34 MIL/MM3 (4.50-5.90) Hemoglobin 12.5 GM/DL (13.0-17.0) Hematocrit 36.3 % (39.0-51.0) Mean Corpuscular Volume 83.7 FL (80.0-100.0) Mean Corpuscular Hemoglobin 28.8 PG (27.0-34.0) Mean Corpuscular Hemoglobin Concent 34.4 % (32.0-36.0) Red Cell Distribution Width 14.1 % (11.6-17.2) Platelet Count 186 TH/MM3 (150-450) Mean Platelet Volume 8.2 FL (7.0-11.0) Blood Urea Nitrogen 12 MG/DL (7-18) Creatinine 0.67 MG/DL (0.60-1.30) Random Glucose 107 MG/DL (74-106) Calcium Level 8.4 MG/DL (8.5-10.1) Sodium Level 141 MEQ/L (136-145) Potassium Level 3.8 MEQ/L (3.5-5.1) Chloride Level 108 MEQ/L (98-107) Carbon Dioxide Level 27.8 MEQ/L (21.0-32.0) Anion Gap 5 MEQ/L (5-15) Estimat Glomerular Filtration Rate 116 ML/MIN (>89) (Diana Mcgarry) Result Diagram: 01/22/18 0416 01/22/18 0416 (1) S/P TAVR (transcatheter aortic valve replacement) Plan: on plavix , ASA, statin has permanent pacer doing well check UA will defer further orders to cardiology (2) CAD (coronary artery disease) (3) Syncopal episodes (4) Symptomatic bradycardia (5) 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
[2018-01-22] MEDS ORDERED: PLAV75TA29 PO (08:42)
--- NOTE | 2018-01-22 08:48 | HHI.DS ---
Discharge Summary Admission Date Jan 21, 2018 at 08:34 Discharge Date: Jan 22, 2018 Admitting Diagnosis Severe bioprosthetic aortic valve stenosis Procedures Transcatheter aortic valve replacement Brief History Is a 72-year-old gentleman with prior history of aortic valve replacement in 2001 diagnosed with symptomatic severe bioprosthetic aortic valve stenosis. Preoperative workup consisted of 2 surgical consultations both recommending transcatheter aortic valve approach secondary to intermediate risk. Patient was brought in for aortic valve replacement. Procedure performed yesterday without complication. CBC/BMP: 01/22/18 0416 01/22/18 0416 Significant Findings Laboratory Tests Test 01/21/18 09:05 01/22/18 04:16 Activated Partial Thromboplast Time 23.6 SEC (24.3-30.1) Estimat Glomerular Filtration Rate 78 ML/MIN (>89) Red Blood Count 4.34 MIL/MM3 (4.50-5.90) Hemoglobin 12.5 GM/DL (13.0-17.0) Hematocrit 36.3 % (39.0-51.0) Random Glucose 107 MG/DL (74-106) Calcium Level 8.4 MG/DL (8.5-10.1) Chloride Level 108 MEQ/L (98-107) PE at Discharge HEAD: Normocephalic. EYES: No scleral icterus. No injection or drainage. NECK: Supple, trachea midline. No JVD or lymphadenopathy. CARDIOVASCULAR: Regular rate and rhythm 2/6 SM. RESPIRATORY: Breath sounds equal bilaterally. Fine bibasilar crackles GASTROINTESTINAL: Abdomen soft, non-tender, nondistended. MUSCULOSKELETAL: No cyanosis, or edema. BACK: Nontender without obvious deformity. No CVA tenderness. Hospital Course Severe bioprosthetic aortic valve stenosis status post transcatheter aortic valve replacement Diastolic congestive heart failure Hypertension Atrial fibrillation Hyperlipidemia Patient had transcatheter aortic valve replacement placed without complication. This was performed under general anesthesia. Patient was recovered in cardiovascular intensive care unit. Right internal jugular temporary transvenous pacemaker was removed. Little was removed. Patient was mobilized to bedside chair. Patient's eating breakfast without complication. Plan; Patient be initiated on Plavix therapy in addition to aspirin. We will continue his low-dose diuretic on an outpatient basis. He will have a follow- up appointment in the next 3-4 weeks in addition to a transthoracic echo. He has been instructed to monitor the groin with no heavy lifting. He will call my office with any questions. Pt Condition on Discharge: Good Discharge Disposition: Discharge Home Discharge Instructions DIET: Follow Instructions for: Heart Healthy Diet Activities you can perform: Weight Bearing as Jonah Hugo MD Jan 22, 2018 08:48
[2018-01-22] MEDS ORDERED: SERTRALINE HCL 100 MG TAB PO SCH (09:00)
[2018-01-22] MEDS ORDERED: VALSARTAN 160 MG TAB PO SCH (09:00)
[2018-01-22] MEDS ORDERED: ATORVASTATIN 40 MG TAB PO SCH (09:00)
[2018-01-22] MEDS ORDERED: FUROSEMIDE 20 MG TAB PO ONE (09:00)
[2018-01-22] MEDS ORDERED: ASPIRIN 81 MG CHEW TAB PO SCH (09:00)
[2018-01-22] MEDS ORDERED: TORSEMIDE 20 MG TAB PO SCH (09:00)
[2018-01-22] MEDS ORDERED: CLOPIDOGREL 75 MG TAB PO SCH (09:00)
--- NOTE | 2018-01-22 09:27 | EKG ---
Date Performed: 01/21/2018 Time Performed: 09:18:50 PTAGE: 72 years EKG: Rhythm is primarily ventricular paced with a few sinus beats noted at the end of the tracin g. Clinical correlation is recommended. 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 PREVIOUS TRACING : 01/07/2018 05.22 DOCTOR: Terell Goldberg Interpretating Date/Time 01/22/2018 09:26:12
--- NOTE | 2018-01-22 10:02 | RADRPT ---
EXAM DATE/TIME: 01/22/2018 09:33 [facility] COMPARISON: CHEST SINGLE AP, January 06, 2018, 13:32. INDICATIONS : Post TAVR MEDICAL HISTORY : Hypertension. Syncope. Measles. Blood transfusion. Hyperlipidemia. Aortic stenosis. Ascending aortic aneurysm. Afib. Sleep apnea. SURGICAL HISTORY : Cardiac valve replacement. Bilateral humerus repair. Femur and Tib/Fib repair.Left knee surgery ENCOUNTER: Subsequent ACUITY: 1 week PAIN SCORE: 0/10 LOCATION: chest FINDINGS: A single view of the chest demonstrates the lungs to be symmetrically aerated without evidence of mas s, infiltrate or effusion. Numerous median sternotomy wires and a left subclavian bipolar pacer are i n good position The cardiomediastinal contours are unremarkable. Osseous structures are intact. CONCLUSION: Lungs are clear. Pacer in good position. No evidence of pneumothorax.. Jonah Waldrop MD on January 22, 2018 at 10:00 Board Certified Radiologist. This report was verified electronically.
[2018-01-22 11:00] VITALS: BP 124/62; PULSE 83; PULSE 87; RESP 18; TEMP 98.6; O2SAT 95
--- NOTE | 2018-01-22 11:35 | EKG ---
Date Performed: 01/22/2018 Time Performed: 05:31:20 PTAGE: 72 years EKG: Sinus rhythm with borderline 1st degree A-V block Left axis deviation RBBB with left anterior fascicular block Ab normal ECG PREVIOUS TRACING : 01/21/2018 09.18 Compared to prior EKG, previous EKG showed a paced rhythm. DOCTOR: Luis Thorpe Interpretating Date/Time 01/22/2018 11:31:34
[2018-01-22 11:47] LABS: BILIRUBIN, URINE NEG (NEG); BLOOD, URINE TRACE (NEG); GLUCOSE,URINE NEG (NEG); KETONE, URINE NEG (NEG); NITRITE,URINE NEG (NEG); SQUAMOUS EPITHELIAL CELL URINE <1 /hpf (0-5); URINE COLOR LIGHT-YELLOW (YELLW/STRAW); URINE LEUKOCYTE ESTERASE NEG (NEG)
--- NOTE | 2018-01-22 12:45 | ECHRPT ---
Indication: EF ASSESSMENT OF CHF CONCLUSIONS Mildly dilated left ventricle. Mild concentric left ventricular hypertrophy. A pacemaker wire is noted. The left atrial size is [id number] dilated. There is a pacemaker wire present in the right atrial cavity. Trace mitral valve regurgitation. No aortic valve regurgitation. Mild aortic valve stenosis. There is trace tricuspid valve regurgitation. The estimated pulmonary arterial pressure is 39.2 mmHg. BP: 113 / 57 HR: 74 Rhythm: Sinus MEASUREMENTS (Male / Female) Normal Values Technical Quality:Fair 2D ECHO LV Diastolic Diameter PLAX 5.9 cm 4.2 - 5.9 / 3.9 - 5.3 cm LV Systolic Diameter PLAX 4.1 cm IVS Diastolic Thickness 1.2 cm 0.6 - 1.0 / 0.6 - 0.9 cm LVPW Diastolic Thickness 1.2 cm 0.6 - 1.0 / 0.6 - 0.9 cm LV Relative Wall Thickness 0.4 RV Internal Dim ED PLAX 2.3 cm LVOT Diameter 2.1 cm Aortic Root Diameter 2.8 cm DOPPLER AV Peak Velocity 357.0 cm/s AV Peak Gradient 51.0 mmHg AV Mean Gradient 30.5 mmHg AV Velocity Time Integral 74.9 cm LVOT Peak Velocity 72.2 cm/s LVOT Peak Gradient 2.1 mmHg LVOT Velocity Time Integral 14.7 cm AV Area Cont Eq vti 0.7 cm AV Area Cont Eq pk 0.7 cm Mitral E Point Velocity 81.4 cm/s Mitral A Point Velocity 82.9 cm/s Mitral E to A Ratio 1.0 LV E' Lateral Velocity 8.3 cm/s Mitral E to LV E' Lateral Ratio 9.8 LV E' Septal Velocity 7.7 cm/s Mitral E to LV E' Septal Ratio 10.6 TR Peak Velocity 270.0 cm/s TR Peak Gradient 29.2 mmHg Right Atrial Pressure 10.0 mmHg Pulmonary Artery Systolic Pressu 39.2 mmHg Right Ventricular Systolic Press 39.2 mmHg PV Peak Velocity 89.5 cm/s PV Peak Gradient 3.2 mmHg FINDINGS LEFT VENTRICLE Mildly dilated left ventricle. Mild concentric left ventricular hypertrophy. The left ventricular systolic function is normal with an estimated ejection fraction in the range of 60-65%. RIGHT VENTRICLE Normal right ventricular size and systolic function. A pacemaker wire is noted. LEFT ATRIUM The left atrial size is [id number] dilated. RIGHT ATRIUM There is a pacemaker wire present in the right atrial cavity. ATRIAL SEPTUM The interatrial septum not well visualized. AORTA The aortic root and proximal ascending aorta are not well visualized. MITRAL VALVE Trace mitral valve regurgitation. AORTIC VALVE No aortic valve regurgitation. Aortic bioprosthesis without paravalvular leak TRICUSPID VALVE There is trace tricuspid valve regurgitation. The estimated pulmonary arterial pressure is 39.2 mmHg. PULMONARY VALVE The pulmonary valve is not well visualized. VESSELS The inferior vena cava is normal in size. PERICARDIUM No pericardial effusion. Jonah Pinzon MD, FACC (Electronically Signed) Final Date:22 January 2018 12:43
[2018-01-22] MEDS ORDERED: ENOXAPARIN SODIUM 100 MG/ML SYRINGE SQ ONE (15:15)
[2018-01-22] MEDS ORDERED: WARFARIN SOD 5 MG TAB PO ONE (15:15)
--- NOTE | 2018-01-30 15:38 | PQ ---
Physician Query Response Document PATIENT: PHUONG VALVERDE : 1945 ADMIT DATE: 01/21/2018 8:34 AM DISCH DATE: 01/22/2018 4:00 PM RESPONDING PROVIDER #: tawanna QUERY TEXT: Acuity Specificity __CHF is documented in the Medical Record. Please specify the acuity of this condition with terms such as: -- Acute -- Chronic -- Acute and chronic -- Acute on chronic -- Other (please specify in the medical record) please contact the CDI/Coding hotline with any questions at [phone] The patient's Clinical Indicators include: Diastolic congestive heart failure is documented in the discharge summary Query created by: Veda Costello on 01/26/2018 8:30 AM RESPONSE TEXT: Acute on chronic CHF. Electronically signed by: Sonny Pinzon 01/30/2018 3:35 PM
== END 2018-01-22 16:00 | disposition home or self-care (01) | DRG 266 ==
LOC: HDIC 08:34 → HCVI 16:50
PROVIDERS: ADMIT Internal Medicine; ATTEND Internal Medicine
PROC: B24BZZ4 Ultrasonography of Heart with Aorta, Transesophageal (ICD-10-PCS; 2018-01-21)
PROC: 02RF38Z Replacement of Aortic Valve with Zooplastic Tissue, Percutaneous Approach (ICD-10-PCS; principal; 2018-01-21 13:00)
PROC: B246ZZ4 Ultrasonography of Right and Left Heart, Transesophageal (ICD-10-PCS; 2018-01-21 13:00)
PROC: B3101ZZ Fluoroscopy of Thoracic Aorta using Low Osmolar Contrast (ICD-10-PCS; 2018-01-21 13:00)
DX: T82.857A Stenosis of other cardiac prosthetic devices, implants and grafts, initial encounter (principal); I50.33 Acute on chronic diastolic (congestive) heart failure; I71.2 Thoracic aortic aneurysm, without rupture; I48.91 Unspecified atrial fibrillation; I11.0 Hypertensive heart disease with heart failure; Y83.1 Surgical operation with implant of artificial internal device as the cause of abnormal reaction of the patient, or of later complication, without mention of misadventure at the time of the procedure; G47.33 Obstructive sleep apnea (adult) (pediatric); E78.5 Hyperlipidemia, unspecified; Z95.0 Presence of cardiac pacemaker; Z87.891 Personal history of nicotine dependence; Z00.6 Encounter for examination for normal comparison and control in clinical research program; Q78.6 Multiple congenital exostoses
CPT/HCPCS: 33210; 33361; 36430; 71045; 80048; 81001; 85002; 85025; 85027; 85610; 85730; 86850; 86900; 86901; 86920; 93005; 93308; 93312; 93320; 93325; 94150; C1760; C1769; C1893; G0269; J0690; J1644; J1650; J2250; J2370; J2405; J2710; J2720; J3010; J3480; J7030; J7040; J7050; P9016